=== PATIENT | female | born 1965 | race American Indian/Alaskan Native ===

== ENCOUNTER 2018-06-03 06:07 | Inpatient (IN) | payer BC ==
[2018-06-03 06:42] LABS: HEMOGLOBIN 11.9 g/dL (12.0-16.0); MEAN CELL VOLUME 90.4 fl (81.0-99.0); MEAN CORPUSCULAR HEMOGLOBIN 29.7 pg (27.0-31.0); MEAN CORPUSCULAR HGB CONC 32.8 g/dL (33.0-37.0); RBC 4.01 Mil/uL (3.80-5.20); RED CELL DISTRIBUTION WIDTH 13.9 % (11.5-14.5); WHITE BLOOD COUNT 5.2 K/uL (4.8-10.8)
[2018-06-03] MEDS ORDERED: Lactated Ringer's 1,000 ML IV ONE ×2 (07:01→08:00)
[2018-06-03] MEDS ORDERED: Bupivacaine HCl 0.5% PF (30 ml) Inj ONE (07:14)
[2018-06-03] MEDS ORDERED: Midazolam 2 MG/2 ML VIAL ONE (07:18)
[2018-06-03] MEDS ORDERED: Propofol 10 mg/ml Inj (20 ML) ONE (07:18)
[2018-06-03] MEDS ORDERED: Rocuronium 10 mg/ml (5 ml) ONE ×3 (07:18→10:19)
[2018-06-03] MEDS ORDERED: Lidocaine 1% 5ml Abboject ONE (07:19)
[2018-06-03] MEDS ORDERED: Succinylcholine 200 mg/10 ml Inj IV ONE (07:19)
[2018-06-03] MEDS ORDERED: Lidocaine 4% (Laryng-O-Jet) Kit MM ONE (07:19)
[2018-06-03] MEDS ORDERED: Dexamethasone 4 mg/1 ml ONE (07:19)
[2018-06-03] MEDS ORDERED: Neostigmine 1:1000 (1 mg/ml) Inj ONE (07:19)
[2018-06-03] MEDS ORDERED: Sevoflurane - Inhalation Anesthetic Liq (250 ml) ONE (07:29)
[2018-06-03] MEDS ORDERED: HYDROmorphone 0.5 mg/0.5 ml ISec IVP PRN (11:57)
[2018-06-03] MEDS: Lactated Ringer's 1,000 ML IV SCH ×4 (13:00→21:15)
[2018-06-03] MEDS: ceFAZolin IV 1 gm in Dextrose 1 GM/50 ML BAG IVPB SCH (16:44)
[2018-06-04] MEDS: ceFAZolin IV 1 gm in Dextrose 1 GM/50 ML BAG IVPB SCH (00:17)
[2018-06-04 08:06] LABS: HEMOGLOBIN 10.2 g/dL (12.0-16.0); MEAN CELL VOLUME 92.3 fl (81.0-99.0); MEAN CORPUSCULAR HEMOGLOBIN 29.8 pg (27.0-31.0); MEAN CORPUSCULAR HGB CONC 32.3 g/dL (33.0-37.0); RBC 3.41 Mil/uL (3.80-5.20); RED CELL DISTRIBUTION WIDTH 14.5 % (11.5-14.5); WHITE BLOOD COUNT 6.8 K/uL (4.8-10.8)
[2018-06-04] MEDS: Lactated Ringer's 1,000 ML IV SCH ×2 (08:40→16:35)
--- NOTE | 2018-06-04 08:57 | CP.SDSHP ---
Same Day Surgery H & P - Allergies Allergies: Allergies No Known Allergies Allergy (Verified 05/27/18 09:39) - Physical Exam Vital Signs: Vital Signs 06/04/18 06/04/18 05:00 08:00 Temperature 98 F 97.2 F L Pulse Rate 58 L 67 Respiratory 24 18 Rate Blood Pressure 146/61 149/66 O2 Sat by Pulse 99 95 Oximetry Short Stay Discharge - Short Stay Discharge Admitting Diagnosis/Reason for Visit: N81.10 Referrals: Hu Amador MD [Primary Care Provider] - Instructions: Robot-Assisted Surgery, How to Wash Your Hands Properly Progress Note/Discharge Note with Instructions: doing well d/c home rx provided f/u with Moses barton wek NPV no heavy lifting
[2018-06-04] MEDS: Oxycodone/Acetaminophen 5/325 mg Tab PO PRN ×3 (09:16→19:35)
[2018-06-04] MEDS: Alum-Mag Hydrox-Simethicone Susp (30 mL) PO PRN (21:06)
[2018-06-04] MEDS ORDERED: cefOXitin 2 GM in Sodium Chloride 0.9% 100 ML IVPB SCH (21:28)
[2018-06-04] MEDS: cefOXitin 2 GM in Sodium Chloride 0.9% 100 ML IVPB SCH (21:33)
[2018-06-05] MEDS: Lactated Ringer's 1,000 ML IV SCH ×2 (04:16→15:37)
[2018-06-05] MEDS: cefOXitin 2 GM in Sodium Chloride 0.9% 100 ML IVPB SCH ×3 (04:58→21:15)
[2018-06-05] MEDS: Alum-Mag Hydrox-Simethicone Susp (30 mL) PO PRN ×2 (08:13→21:28)
[2018-06-05] MEDS: Simethicone 80 mg Chewtab PO PRN ×2 (13:24→22:48)
--- NOTE | 2018-06-05 20:01 | CP.PCM.PN ---
Subjective - Date & Time of Evaluation Date of Evaluation: 06/05/18 Time of Evaluation: 14:30 - Subjective Subjective: Patient without complaints. Patient reports pain well controlled. Patient tolerating fluids and small amounts of solids. Patient denies any nausea or vomiting, chest pain or shortness of breath, fever or chills. Patient reports no flatus or bowel movement as of yet. Objective - Vital Signs/Intake and Output Vital Signs (last 24 hours): Temp Pulse Resp BP Pulse Ox 101.6 F H 103 H 22 152/65 H 96 06/05/18 16:22 06/05/18 16:22 06/05/18 16:22 06/05/18 16:22 06/05/18 16:22 Intake and Output: 06/05/18 06/06/18 18:59 06:59 Intake Total 2540 Balance 2540 - Medications Medications: Current Medications Acetaminophen (Tylenol 325mg Tab) 650 mg PO Q4 PRN PRN Reason: Temperature Last Admin: 06/05/18 08:27 Dose: 650 mg Al Hydrox/Mg Hydrox/Simethicone (Maalox Plus 30 Ml) 30 ml PO Q4 PRN PRN Reason: Indigestion / Heartburn Last Admin: 06/05/18 08:13 Dose: 30 ml Docusate Sodium (Colace) 100 mg PO BID [facility] Last Admin: 06/05/18 08:13 Dose: 100 mg Lactated Ringer's (Lactated Ringer's) 1,000 mls @ 100 mls/hr IV .Q10H [facility] Last Admin: 06/05/18 15:37 Dose: 100 mls/hr Cefoxitin Sodium 2 gm/ Sodium (Chloride) 100 mls @ 100 mls/hr IVPB Q8H [facility] PRN Reason: Protocol Last Admin: 06/05/18 13:24 Dose: 100 mls/hr Ketorolac Tromethamine (Toradol) 30 mg IVP Q6 PRN PRN Reason: Pain, moderate (4-7) Last Admin: 06/05/18 15:35 Dose: 30 mg Ondansetron HCl (Zofran Inj) 4 mg IVP Q12 PRN PRN Reason: Nausea/Vomiting Last Admin: 06/03/18 22:38 Dose: 4 mg Oxycodone/Acetaminophen (Percocet 5/325 Mg Tab) 1 tab PO Q4 PRN PRN Reason: Pain, Mild (1-3) Stop: 06/07/18 08:55 Last Admin: 06/04/18 19:35 Dose: 1 tab Simethicone (Mylicon Chew Tab) 80 mg PO TID PRN PRN Reason: Flatulence Last Admin: 06/05/18 13:24 Dose: 80 mg - Labs Labs: 06/04/18 06:29 - Constitutional Appears: Well, No Acute Distress - Eye Exam Eye Exam: Normal appearance, PERRL - ENT Exam ENT Exam: Mucous Membranes Moist - GI/Abdominal Exam GI & Abdominal Exam: Distended, Firm, Hypoactive Bowel Sounds. absent: Guarding , Tenderness, Rebound Assessment and Plan - Assessment and Plan (Free Text) Assessment: Postoperative day #2 status post robotic-assisted laparoscopy. Patient recovering well but no flatus or bowel movement with hypoactive bowel sounds and moderately distended abdomen. Plan: Discussed plan with primary physician, plan to continue observation and slowly advance diet. I discussed plan with patient and all patient questions answered.
[2018-06-05] MEDS ORDERED: cefOXitin 2 GM in Sodium Chloride 0.9% 100 ML IVPB SCH (21:00)
[2018-06-06] MEDS: Lactated Ringer's 1,000 ML IV SCH (01:47)
--- NOTE | 2018-06-06 08:22 | OP ---
PROCEDURE DATE: 06/03/18 PREOPERATIVE DIAGNOSIS: Pelvic pain, cervical prolapse. POSTOPERATIVE DIAGNOSES: Pelvic pain, cervical prolapse with anterior abdominal wall bowel adhesions, bowel adherent to the cervical stump, left ovary adherent to the pelvic side wall. SURGERY PERFORMED: Enterolysis, cystoscopy with stents, Middleton culdoplasty, ureterolysis and lysis of adhesions. SURGEON: Sergei Cain MD HIDE DROPPER: MD Dr. Deshawn Lizarraga HIDE DROPPER [employer] ANESTHESIA: General. ANESTHESIA ADMINISTERED BY: Dr. Bynum. ESTIMATED BLOOD LOSS: 50 mL. URINE OUTPUT: Knight catheter put out approximately 500 mL of clear urine. The patient received approximately 2 L of D5 LR intraoperatively. The patient had had previous supracervical hysterectomy. Dr. Hess was instrumental in the care of the patient who helped to create exposure. He was helpful in manipulating tissue and retraction. The procedure would not have been possible without his assistance. DESCRIPTION OF PROCEDURE: After informed consent was obtained, the patient was taken to the operating room where she was given general anesthesia. She was then prepped and draped in a dorsal lithotomy position. Attention was then turned to the urethra. Cystoscope was inserted. The left ureteral orifice was identified and stented. IC-Green 5 mL was injected. Similar procedure was then performed on the left. The ureters were injected so we could clearly identify the course of the ureter secondary to the patient's previous pelvic surgery with supracervical hysterectomy. The Knight catheter was then inserted into the bladder to monitor the patient's urinary output. A sponge stick was then inserted into the vagina as a means to manipulate the cervical stump. Attention was then turned to approximate 10 cm superior to the umbilicus. Marcaine was infused. An 8 mm incision was made. Veress needle was then inserted. Placement was confirmed with a fluid-filled syringe. The abdomen was then insufflated to 15 mmHg. The Veress needle was then removed, and an 8-mm robotic port was introduced to the abdominal cavity. Upon insertion, there were extensive anterior abdominal wall adhesions. Peritoneum was adherent to the anterior abdominal wall and several loops of the bowel were adherent to the anterior abdominal wall. Photographs were taken for documentation. Attention was then turned to approximately 5 cm superior to the right anterior iliac crest. Marcaine was infused, and an 8 mm incision was made and an 8 mm robotic port was introduced to the abdominal cavity under direct visualization. Similar procedure was performed on the left. The laproscopic scissors were then used to disect anterior wall omental adhesions, once the adhesions were mobilized we proceeded to insert the remaining operative ports. Approximately 10 cm right and lateral of the umbilicus, Marcaine was infused. An 8 mm incision was made and an additional robotic port was introduced under direct visualization. Attention was then turned to approximately 10 cm left of the umbilicus. An 8 mm incision was made and an 8 mm assisted port was introduced into the abdominal cavity. The patient was then placed in steep Trendelenburg. The table was lowered, and the robot was brought along the patient's side and docked without complication. The instruments used for the surgery were PK dissector, Keo Suture Cut, ProGrasp, and scissor. Attention was then turned to the anterior abdominal wall adhesions. A gentle traction was applied and with the grasper, they were gently dissected off the anterior abdominal wall using both sharp and blunt dissection. As we approached the lower aspect of the abdomen, we noted the several loops of bowel that were adherent. We gently dissected the bowel using counter traction with the bowel grasper and sharp and blunt dissection. The bowel was then mobilized laterally and dissected away from the abdomen without complication. As we approached the pelvis, we encountered more filmy adhesions. They were lysed using both sharp and blunt dissection. As we approached the cervical stump, we identified colon adherent to the anterior aspect of the cervical stump using both sharp and blunt dissection. The colon was mobilized from the cervix. Attention was then turned to the ureter. We cannot clearly identify the ureter. On the right side, we then proceeded with our Firefly technology. The bowel was adherent to the pelvic sidewall. The bowel was then mobilized. The colon was then mobilized medially using Firefly technology. We identified the ureter superiorly. We dissected it out, and we entered the retroperitoneal space, dissected the ureter out and down to the level towards the uterosacral ligament and cervical stump. A similar procedure was performed on the left. Attention was then turned to the uterosacral ligament. They were plicated using gortex suture to create the culdoplasty. The abdomen was then copiously irrigated. The irrigant was removed with the suction device. Hemostasis was noted. All instruments were then removed from the abdomen and hemostasis was noted. Cystoscopy was then performed. Integrity of the bladder was noted to be intact with bilateral clear efflux of the urine. All instruments were then removed from the vagina. The attention was then turned to the abdomen where all 8 mm incisions were closed with 3-0 Biosyn and Dermabond. All sponge, lap, needle, and instrument counts were correct x2, and the patient was awakened from general anesthesia and taken to the recovery room in awake and stable condition. Sergei Cain MD [facility]
--- NOTE | 2018-06-06 10:37 | CP.PCM.PN ---
Subjective - Date & Time of Evaluation Date of Evaluation: 06/06/18 Time of Evaluation: 10:35 - Subjective Subjective: patient doing well patient reports having small bowel movement this am patient voiding without difficulty Objective - Vital Signs/Intake and Output Vital Signs (last 24 hours): Temp Pulse Resp BP Pulse Ox 99.9 F H 113 H 20 142/74 98 06/06/18 09:28 06/06/18 08:28 06/06/18 08:28 06/06/18 08:28 06/06/18 08:28 Intake and Output: 06/06/18 06/06/18 06:59 18:59 Intake Total 1780 Balance 1780 - Medications Medications: Current Medications Acetaminophen (Tylenol 325mg Tab) 650 mg PO Q4 PRN PRN Reason: Temperature Last Admin: 06/06/18 08:28 Dose: 650 mg Al Hydrox/Mg Hydrox/Simethicone (Maalox Plus 30 Ml) 30 ml PO Q4 PRN PRN Reason: Indigestion / Heartburn Last Admin: 06/05/18 21:28 Dose: 30 ml Docusate Sodium (Colace) 100 mg PO BID [facility] Last Admin: 06/06/18 08:29 Dose: 100 mg Lactated Ringer's (Lactated Ringer's) 1,000 mls @ 100 mls/hr IV .Q10H [facility] Last Admin: 06/06/18 01:47 Dose: 100 mls/hr Ketorolac Tromethamine (Toradol) 30 mg IVP Q6 PRN PRN Reason: Pain, moderate (4-7) Last Admin: 06/06/18 08:29 Dose: 30 mg Ondansetron HCl (Zofran Inj) 4 mg IVP Q12 PRN PRN Reason: Nausea/Vomiting Last Admin: 06/03/18 22:38 Dose: 4 mg Oxycodone/Acetaminophen (Percocet 5/325 Mg Tab) 1 tab PO Q4 PRN PRN Reason: Pain, Mild (1-3) Stop: 06/07/18 08:55 Last Admin: 06/04/18 19:35 Dose: 1 tab Simethicone (Mylicon Chew Tab) 80 mg PO TID PRN PRN Reason: Flatulence Last Admin: 06/05/18 22:48 Dose: 80 mg - Labs Labs: 06/04/18 06:29 - Constitutional Appears: Well - Head Exam Head Exam: ATRAUMATIC - Respiratory Exam Respiratory Exam: Clear to Ausculation Bilateral - Cardiovascular Exam Cardiovascular Exam: REGULAR RHYTHM - GI/Abdominal Exam Additional comments: incision clean dry and inta Assessment and Plan - Assessment and Plan (Free Text) Assessment: postoperative day 3 She noted to have temp today Will obtain cbc blood cultures urine cultures ID evaluation
[2018-06-06] MEDS ORDERED: Dextrose 5%/0.45% NS 1,000 ML IV SCH (11:00)
[2018-06-06 11:36] LABS: BASO % 0.3 % (0.0-2.0); EOS # 0.1 K/uL (0.0-0.7); EOS % 0.7 % (0.0-4.0); HEMOGLOBIN 9.2 g/dL (12.0-16.0); LYMPH # 1.5 K/uL (1.0-4.3); LYMPH % 15.6 % (20.0-40.0); MEAN CELL VOLUME 90.8 fl (81.0-99.0); MEAN CORPUSCULAR HEMOGLOBIN 29.7 pg (27.0-31.0); MEAN CORPUSCULAR HGB CONC 32.7 g/dL (33.0-37.0); MEAN PLATELET VOLUME 7.1 fl (7.2-11.7); MONO # 0.7 K/uL (0.0-0.8); MONO % 6.8 % (0.0-10.0); NEUT # 7.5 K/uL (1.8-7.0); NEUT % 76.6 % (50.0-75.0); NRBC % 0.1 % (0.0-0.0); RBC 3.08 Mil/uL (3.80-5.20); RED CELL DISTRIBUTION WIDTH 13.6 % (11.5-14.5); WHITE BLOOD COUNT 9.7 K/uL (4.8-10.8)
[2018-06-06] MEDS: Simethicone 80 mg Chewtab PO PRN (16:43)
--- NOTE | 2018-06-06 18:00 | CP.PCM.PN ---
Subjective - Date & Time of Evaluation Date of Evaluation: 06/06/18 Time of Evaluation: 17:55 - Subjective Subjective: I D NOTE PATIENT EXAMINED ,CHART REVIEWED HAVE STARTED CLINDAMYCIN/ZOSYN US OF ABDOMEN/PELVIS,POSSIBL Objective - Vital Signs/Intake and Output Vital Signs (last 24 hours): Temp Pulse Resp BP Pulse Ox 102.2 F H 107 H 22 152/72 H 98 06/06/18 16:42 06/06/18 16:42 06/06/18 16:42 06/06/18 16:42 06/06/18 16:42 Intake and Output: 06/06/18 06/06/18 06:59 18:59 Intake Total 1780 Balance 1780 - Medications Medications: Current Medications Acetaminophen (Tylenol 325mg Tab) 650 mg PO Q4 PRN PRN Reason: Temperature Last Admin: 06/06/18 16:42 Dose: 650 mg Al Hydrox/Mg Hydrox/Simethicone (Maalox Plus 30 Ml) 30 ml PO Q4 PRN PRN Reason: Indigestion / Heartburn Last Admin: 06/05/18 21:28 Dose: 30 ml Docusate Sodium (Colace) 100 mg PO BID [facility] Last Admin: 06/06/18 16:43 Dose: 100 mg Dextrose/Sodium Chloride (Dextrose 5%/0.45% Ns 1000 Ml) 1,000 mls @ 125 mls/hr IV .Q8H [facility] Stop: 06/07/18 10:48 Last Admin: 06/06/18 11:33 Dose: 125 mls/hr Piperacillin Sod/Tazobactam (Sod 3.375 gm/ Sodium Chloride) 100 mls @ 100 mls/ hr IVPB Q6 [facility] PRN Reason: Protocol Clindamycin Phosphate 600 mg/ (Sodium Chloride) 54 mls @ 54 mls/hr IVPB Q8 [facility] PRN Reason: Protocol Ketorolac Tromethamine (Toradol) 30 mg IVP Q6 PRN PRN Reason: Pain, moderate (4-7) Last Admin: 06/06/18 08:29 Dose: 30 mg Ondansetron HCl (Zofran Inj) 4 mg IVP Q12 PRN PRN Reason: Nausea/Vomiting Last Admin: 06/03/18 22:38 Dose: 4 mg Oxycodone/Acetaminophen (Percocet 5/325 Mg Tab) 1 tab PO Q4 PRN PRN Reason: Pain, Mild (1-3) Stop: 06/07/18 08:55 Last Admin: 06/04/18 19:35 Dose: 1 tab Simethicone (Mylicon Chew Tab) 80 mg PO TID PRN PRN Reason: Flatulence Last Admin: 06/06/18 16:43 Dose: 80 mg - Labs Labs: 06/06/18 11:31
[2018-06-06 18:37] LABS: ALB/GLOB RATIO 0.8 (1.0-2.1); ALBUMIN 3.1 g/dL (3.5-5.0); ALT/SGPT 18 U/L (9-52); AST/SGOT 24 U/L (14-36); BLOOD UREA NITROGEN 9 mg/dl (7-17); CALCIUM 8.1 mg/dL (8.4-10.2); GFR NON-AFRICAN AMERICAN > 60
[2018-06-06] MEDS ORDERED: Sodium Chloride 0.9% 50 ML IV ONE (19:04)
[2018-06-06] MEDS ORDERED: Iohexol 300 100 ML IJ ONE (19:04)
[2018-06-06] MEDS ORDERED: Enoxaparin 40 mg Syringe SC SCH (21:00)
[2018-06-06] MEDS: Piperacillin/Tazobact 3.375 GM in Sodium Chloride 0.9% 100 ML IVPB SCH (21:47)
[2018-06-06] MEDS: Potassium Chl 40 mEq in D5-1/2 1,000 ML IV SCH (21:58)
[2018-06-07] MEDS: Piperacillin/Tazobact 3.375 GM in Sodium Chloride 0.9% 100 ML IVPB SCH ×4 (03:48→22:25)
[2018-06-07] MEDS ORDERED: Chlorhexidine Gluconate 1 APPL/PKT TP ONE ×2 (08:36→23:30)
--- NOTE | 2018-06-07 08:56 | CON ---
DATE: 06/06/2018 INFECTIOUS DISEASE CONSULTATION HISTORY OF PRESENT ILLNESS: The patient is a 53-year-old female who was admitted for pelvic pain with cervical prolapse. She underwent enterolysis, cystoscopy with stents and Middleton culdoplasty and ureterolysis and lysis of adhesions on 06/03/2018. Surgery was done by Dr. Sergei Cain. The patient was planned to be discharged on the next day, but she has been running temperature of 101 to 102 since that day. White count is up from 5.2 to 9.7, hemoglobin is 9.2, platelet count is 273. PHYSICAL EXAMINATION: GENERAL: She is alert, cooperative, and oriented to time and place. HEENT: Within normal limits. NECK: Supple. LUNGS: Clear. HEART: Regular sinus rhythm. ABDOMEN: Distended. There are decreased bowel sounds. She is tender in all quadrants, especially in the right lower quadrant. EXTREMITIES: Trace edema, both lower extremities. PLAN: Right now, I started her on clindamycin 600 mg IV piggyback every 8 hours and Zosyn 3.375 g IV piggyback every 6 hours. Awaiting stat CMP to decide on if the doses are appropriate as to renal functuion. At present time, I have ordered ct of abdomen and pelvis Sven Sparks MD MTDD
[2018-06-07] MEDS ORDERED: cefTRIAXone 2 GM in Sodium Chloride 0.9% 100 ML IVPB SCH (09:00)
[2018-06-07] MEDS: Potassium Chl 40 mEq in D5-1/2 1,000 ML IV SCH (10:24)
--- NOTE | 2018-06-07 10:30 | CP.PCM.CON ---
History of Present Illness - History of Present Illness History of Present Illness: Surgery Consult: Dr. Fowler Pt is a 44F with PMHx significant for arthritis who presented to [facility] on Sunday 06/03 for elective surgery for pelvic pain & cervical prolapse. Pt underwent a Robotic assisted enterolysis, cystoscopy, ANA & Middleton culdoplasty. Post-op pt was started on a diet which she was tolerating up until yesterday when she started feeling nauseous. Pt states she also started having abdominal pain more pronounced than the incisional pain she was having days prior. Pt reports a small mucous like bowel movement this AM but denies any flatus. She denies vomiting, chills, chest pain or SOB. Of note, pt has been spiking fevers since wednesday. Pt admits to ambulating to the bathroom. Denies other complaints at this time. PMHx: arthritis PSHx: , hysterectomy, D&C, lipoma excision from back SocialHx: denies smoking/drugs, social EtOH NKDA Review of Systems - Review of Systems All systems: reviewed and no additional remarkable complaints except (as per HPI) Past Patient History - Past Medical History & Family History Past Medical History?: Yes - CARDIAC Hx Cardiac Disorders: No - PULMONARY Hx Respiratory Disorders: No - NEUROLOGICAL Hx Neurological Disorder: No - HEENT Hx HEENT Problems: No - RENAL Hx Chronic Kidney Disease: No - ENDOCRINE/METABOLIC Hx Endocrine Disorders: No - HEMATOLOGICAL/ONCOLOGICAL Hx Blood Disorders: No - INTEGUMENTARY Hx Dermatological Problems: No - MUSCULOSKELETAL/RHEUMATOLOGICAL Hx Musculoskeletal Disorders: Yes Hx Arthritis: Yes (knees) Hx Rheumatoid Arthritis: Yes - GASTROINTESTINAL Hx Gastrointestinal Disorders: No - GENITOURINARY/GYNECOLOGICAL Hx Genitourinary Disorders: No - PSYCHIATRIC Hx Psychophysiologic Disorder: No - SURGICAL HISTORY Hx Surgeries: Yes Hx Breast Biopsy: Yes (right breast) Hx Section: Yes (x1) Hx Hysterectomy: Yes - ANESTHESIA Hx Anesthesia: Yes Hx Anesthesia Reactions: No Has any member of the family had a problem w/ anesthesia?: No Meds Allergies/Adverse Reactions: Allergies Allergy/AdvReac Type Severity Reaction Status Date / Time No Known Allergies Allergy Verified 05/27/18 09:39 - Medications Medications: Current Medications Acetaminophen (Tylenol 325mg Tab) 650 mg PO Q4 PRN PRN Reason: Temperature Last Admin: 06/06/18 16:42 Dose: 650 mg Acetaminophen (Tylenol 650 Mg Supp) 650 mg CA ONCE PRN PRN Reason: Fever >100.4 F Last Admin: 06/07/18 08:40 Dose: 650 mg Al Hydrox/Mg Hydrox/Simethicone (Maalox Plus 30 Ml) 30 ml PO Q4 PRN PRN Reason: Indigestion / Heartburn Last Admin: 06/05/18 21:28 Dose: 30 ml Docusate Sodium (Colace) 100 mg PO BID [facility] Last Admin: 06/07/18 08:56 Dose: Not Given Enoxaparin Sodium (Lovenox) 40 mg SC DAILY@2100 [facility] PRN Reason: Protocol Last Admin: 06/06/18 22:23 Dose: 40 mg Piperacillin Sod/Tazobactam (Sod 3.375 gm/ Sodium Chloride) 100 mls @ 100 mls/hr IVPB Q6 [facility] PRN Reason: Protocol Last Admin: 06/07/18 03:48 Dose: 100 mls/hr Potassium Chloride/Dextrose/Sod Cl (Potassium Chl 40 Meq In D5-1/2ns) 1,000 mls @ 125 mls/hr IV .Q8H [facility] Stop: 06/07/18 21:10 Last Admin: 06/06/18 21:58 Dose: 125 mls/hr Clindamycin Phosphate 600 mg/ (Sodium Chloride) 54 mls @ 54 mls/hr IVPB Q8H [facility] PRN Reason: Protocol Last Admin: 06/07/18 09:03 Dose: 54 mls/hr Ketorolac Tromethamine (Toradol) 30 mg IVP Q6 PRN PRN Reason: Pain, moderate (4-7) Last Admin: 06/07/18 08:57 Dose: 30 mg Ondansetron HCl (Zofran Inj) 4 mg IVP Q12 PRN PRN Reason: Nausea/Vomiting Last Admin: 06/06/18 21:44 Dose: 4 mg Simethicone (Mylicon Chew Tab) 80 mg PO TID PRN PRN Reason: Flatulence Last Admin: 06/06/18 16:43 Dose: 80 mg Physical Exam - Constitutional Appears: Well, No Acute Distress - Head Exam Head Exam: ATRAUMATIC, NORMOCEPHALIC - Eye Exam Eye Exam: Normal appearance - ENT Exam ENT Exam: Mucous Membranes Moist - Respiratory Exam Respiratory Exam: NORMAL BREATHING PATTERN - Cardiovascular Exam Cardiovascular Exam: Tachycardia - GI/Abdominal Exam GI & Abdominal Exam: Distended, Hypoactive Bowel Sounds, Soft, Tenderness (more pronounced on the R side of the abdomen ). absent: Guarding, Rebound - Extremities Exam Extremities exam: Negative for: calf tenderness - Neurological Exam Neurological exam: Alert, Oriented x3 - Skin Skin Exam: Dry, Warm Results - Vital Signs Recent Vital Signs: Last Vital Signs Temp 101.9 F H 06/07/18 08:20 Pulse 97 H 06/07/18 08:20 Resp 18 06/07/18 08:20 BP 145/78 06/07/18 08:20 Pulse Ox 99 06/07/18 08:20 - Labs Result Diagrams: 06/06/18 11:31 06/06/18 17:46 Labs: Laboratory Results - last 24 hr 06/06/18 06/06/18 11:31 17:46 WBC 9.7 RBC 3.08 L Hgb 9.2 L Hct 28.0 L MCV 90.8 MCH 29.7 MCHC 32.7 L RDW 13.6 Plt Count 273 MPV 7.1 L Neut % (Auto) 76.6 H Lymph % (Auto) 15.6 L [place] % (Auto) 6.8 Eos % (Auto) 0.7 Baso % (Auto) 0.3 Neut # (Auto) 7.5 H Lymph # (Auto) 1.5 [place] # (Auto) 0.7 Eos # (Auto) 0.1 Baso # (Auto) 0.0 Sodium 136 Potassium 3.3 L Chloride 101 Carbon Dioxide 26 Anion Gap 12 BUN 9 Creatinine 0.8 Est GFR ( Amer) > 60 Est GFR (Non-Af Amer) > 60 Random Glucose 158 H Calcium 8.1 L Total Bilirubin 0.8 AST 24 ALT 18 Alkaline Phosphatase 71 Total Protein 7.0 Albumin 3.1 L Globulin 3.9 Albumin/Globulin Ratio 0.8 L - Imaging and Cardiology CT scan - abdomen Status: Image reviewed by me, Report reviewed by me Assessment & Plan - Assessment and Plan (Free Text) Assessment: 53F s/p robotic assisted Middleton culdoplasty & extensive lysis of adhesions; POD#4. Surgery consulted for post-op ileus vs SBO Plan: - keep NPO - NGT inserted; monitor output - serial abdominal exams - monitor bowel function - encourage ambulation; NGT can be taken off suction when walking - f/u urine & blood cultures - cont ABX per ID recs - d/w Dr. Malcolm Jamison
[2018-06-07] MEDS ORDERED: Iohexol 240 (50 ml) PO ONE (10:54)
[2018-06-07 11:15] LABS: BASO % 0.5 % (0.0-2.0); EOS # 0.1 K/uL (0.0-0.7); EOS % 2.7 % (0.0-4.0); HEMOGLOBIN 8.8 g/dL (12.0-16.0); LYMPH # 0.9 K/uL (1.0-4.3); LYMPH % 21.7 % (20.0-40.0); MEAN CELL VOLUME 90.3 fl (81.0-99.0); MEAN CORPUSCULAR HEMOGLOBIN 30.1 pg (27.0-31.0); MEAN CORPUSCULAR HGB CONC 33.3 g/dL (33.0-37.0); MEAN PLATELET VOLUME 7.8 fl (7.2-11.7); MONO # 0.6 K/uL (0.0-0.8); MONO % 15.3 % (0.0-10.0); NEUT # 2.5 K/uL (1.8-7.0); NEUT % 59.8 % (50.0-75.0); NRBC % 0.3 % (0.0-0.0); RBC 2.94 Mil/uL (3.80-5.20); RED CELL DISTRIBUTION WIDTH 13.7 % (11.5-14.5); WHITE BLOOD COUNT 4.1 K/uL (4.8-10.8)
--- NOTE | 2018-06-07 11:15 | CT ---
Date of service: 06/06/2018 PROCEDURE: CT Abdomen and Pelvis with contrast HISTORY: POST OP FEVER COMPARISON: None. TECHNIQUE: Following the intravenous administration of iodinated contrast material, a CT examination of the abdomen and pelvis performed from the domes of the diaphragms to the symphysis pubis with reformatted datasets provided in axial, sagittal and coronal planes. Oral contrast was not administered as per referring physician request. Coronal and sagittal reformats were generated. contrast dose: Omnipaque 300, 100 cc Radiation dose: Total exam DLP = 996.02 mGy-cm. This CT exam was performed using one or more of the following dose reduction techniques: Automated exposure control, adjustment of the mA and/or kV according to patient size, and/or use of iterative reconstruction technique. FINDINGS: LOWER THORAX: Cardiomegaly. Linear atelectasis or fibrosis seen at the bilateral lung bases. No acute infiltrate pleural or pericardial effusion identified. LIVER: Unremarkable. No gross lesion or ductal dilatation. GALLBLADDER AND BILE DUCTS: Unremarkable. PANCREAS: Unremarkable. No gross lesion or ductal dilatation. SPLEEN: Unremarkable. ADRENALS: Unremarkable. No mass. KIDNEYS AND URETERS: Unremarkable. No hydronephrosis. No solid mass. VASCULATURE: Unremarkable. No aortic aneurysm. BOWEL: Evaluation of the gastrointestinal tract is limited due to the lack of oral contrast administration. There is free intra peritoneal gas identified on a [id number] basis scattered throughout the abdomen. Dilated proximal to mid small bowel is identified distended with fluid and a bit of air with distal small bowel collapse and mid to distal colonic collapse identified as well. While this is suspicious for a distal small bowel obstruction, patient is postoperative, which may account for free intra peritoneal gas, and while there is limited ascites identified, particularly the bilateral pericolic gutters, nonspecific irregularly-shaped fluid collections appreciated at the right lower quadrant extending into the mid pelvis with subtle peripheral enhancement and a mild amount of air. The collection is bilobed within upper mid pelvic segment measuring 8.0 x 2.8 cm and a lower segment measuring 8.3 x 2.8 cm. These are captured images 135 through 167 and series 3. There is a collection not clearly representing bowel in the lower pelvis measuring 6.8 x 4.2 cm suspicious for additional more organized abscess. Further clinical correlation is recommended. APPENDIX: Not identified. PERITONEUM: Please see bowel section above. LYMPH NODES: Unremarkable. No enlarged lymph nodes. BLADDER: Unremarkable. REPRODUCTIVE: Unremarkable. BONES: No acute fracture. OTHER FINDINGS: None. IMPRESSION: 1. Findings suspicious for distal small bowel obstruction. Postoperative ileus is differential diagnostic possibility. While free intrarenal gas is identified and could reflect postoperative change, bowel perforation is not completely excluded. Further, 2 moderate sized fluid collections in the pelvis suspicious for abscesses. 2. Cardiomegaly. Concordant preliminary report from [facility], 06/06/2018.
[2018-06-07 11:28] LABS: ALB/GLOB RATIO 0.8 (1.0-2.1); ALBUMIN 3.2 g/dL (3.5-5.0); ALT/SGPT 24 U/L (9-52); AST/SGOT 24 U/L (14-36); BLOOD UREA NITROGEN 8 mg/dl (7-17); CALCIUM 8.3 mg/dL (8.4-10.2); GFR NON-AFRICAN AMERICAN > 60
[2018-06-07] MEDS ORDERED: Sodium Chloride 0.9% 50 ML IV ONE (12:18)
[2018-06-07] MEDS ORDERED: Iohexol 300 100 ML IJ ONE (12:18)
[2018-06-07] MEDS ORDERED: Succinylcholine 200 mg/10 ml Inj IV ONE (12:43)
[2018-06-07] MEDS ORDERED: Rocuronium 10 mg/ml (5 ml) ONE (12:43)
[2018-06-07] MEDS ORDERED: Etomidate 20 mg/10ml Inj IV ONE (12:43)
[2018-06-07] MEDS ORDERED: metroNIDAZOLE 500mg/100ml NS 100 ML IVPB ONE (12:45)
[2018-06-07] MEDS ORDERED: ceFAZolin IV 1 gm in Dextrose 2 GM/100 ML BAG IVPB ONE (12:45)
[2018-06-07] MEDS ORDERED: Bupivacaine HCl 0.5% PF (30 ml) Inj ONE (12:45)
[2018-06-07] MEDS ORDERED: Neostigmine 1:1000 (1 mg/ml) Inj ONE (12:46)
[2018-06-07] MEDS ORDERED: Ketamine 50 mg/ml Inj (10 ml) ONE (12:52)
[2018-06-07] MEDS ORDERED: Midazolam 2 MG/2 ML VIAL ONE (12:53)
[2018-06-07] MEDS ORDERED: Lactated Ringer's 1,000 ML IV ONE ×2 (13:28→15:50)
[2018-06-07] MEDS ORDERED: Sodium Chloride 0.9% 1,000 ML IV ONE ×2 (13:30→15:00)
[2018-06-07 14:09] LABS: INR 1.1; PROTHROMBIN TIME 12.5 Seconds (9.8-13.1)
[2018-06-07 14:12] LABS: PARTIAL THROMBOPLASTIN TIME 31.2 Seconds (25.6-37.1)
--- NOTE | 2018-06-07 14:24 | CT ---
PROCEDURE: CT Abdomen and Pelvis with oral and IV contrast. HISTORY: SBO vs ileus; r/o perforation COMPARISON: CT abdomen and pelvis with IV contrast performed 06/06/18 TECHNIQUE: Contiguous axial images of the abdomen and pelvis. Oral and IV contrast was administered. Coronal and Sagittal reformats generated and reviewed. Contrast dose: 100 cc Omnipaque 300 IV Radiation dose: Total exam DLP = 891.15 mGy-cm. This CT exam was performed using one or more of the following dose reduction techniques: Automated exposure control, adjustment of the mA and/or kV according to patient size, and/or use of iterative reconstruction technique. FINDINGS: Nasogastric tube extends to the stomach. LOWER THORAX: Bibasilar atelectasis. No visible pleural effusion or pneumothorax. Distal esophageal wall thickening/small hiatal hernia. LIVER: Unremarkable. GALLBLADDER AND BILE DUCTS: Unremarkable. PANCREAS: Unremarkable. SPLEEN: Unremarkable. ADRENALS: Unremarkable. KIDNEYS AND URETERS: The kidneys enhance symmetrically. No hydronephrosis or obstructing renal calculus. BLADDER: The urinary bladder appears unremarkable. REPRODUCTIVE: Uterus is not identified, presumably due to hysterectomy. APPENDIX: The appendix is not identified. BOWEL: The stomach is nondistended. Dilated proximal and mid small bowel distended with fluid and air with decompressed distal small bowel loops. Again seen within the right pelvis is a fluid collection measuring approximately 9.3 x 2.6 cm, previously 8.1 x 3.7 cm when remeasured in a similar location. Inferior medially is another fluid collection measuring approximately 4.2 x 7.1 cm, previously 3.7 x 6.0 cm. PERITONEUM: Small pelvic free fluid. Pneumoperitoneum. LYMPH NODES: No bulky lymphadenopathy identified. VASCULATURE: No aortic aneurysm. BONES: Degenerative changes. OTHER FINDINGS: None. IMPRESSION: Dilated proximal mid small bowel loops distended with air and fluid. Decompressed small bowel loops are evident distally. Appearance consistent with small bowel obstruction. Small to moderate pelvic free fluid. Multiple fluid collections as above may represent abscesses. Pneumoperitoneum. Nasogastric tube.
[2018-06-07] MEDS ORDERED: Liquid Adhesive TOP ONE (15:14)
--- NOTE | 2018-06-07 15:37 | PCM.SURG1 ---
Surgeon's Initial Post Op Note - Surgeon's Notes Surgeon: Dr. Fowler Hair Mixer: Yaquelin PGY3, Ant MORSE, Zelda PGY2 Type of Anesthesia: General Endo Anesthesia Administered By: Dr. Daron Melchor Pre-Operative Diagnosis: Small bowel obstruction Operative Findings: Cecal fistula, dilated small bowel, intra-peritoneal abscess (see operative report) Post-Operative Diagnosis: cecal perforation, SBO Operation Performed: Laparoscopic converted to open laparotomy, repair of right colon/cecum fistula, diverting ileostomy, drainage of intra-peritoneal abscess Specimen/Specimens Removed: pertoneal fluid culture, subcutaneous fat Estimated Blood Loss: EBL {In ML}: 200 Blood Products Given: N/A Drains Used: Roger (x 2 (RLQ/LLQ), 19 fr) Post-Op Condition: Fair Date of Surgery/Procedure: 06/07/18 Time of Surgery/Procedure: 15:39
[2018-06-07] MEDS ORDERED: HYDROmorphone 0.5 mg/0.5 ml ISec IVP PRN (15:52)
[2018-06-07] MEDS ORDERED: Dexmedetomidine Hydrochloride 400 MCG in Sodium Chloride 0.9% 96 ML IV ONE (16:04)
[2018-06-07 18:20] LABS: ABG ALLEN TEST YES; ARTERIAL BLOOD GAS HCO3 24.4 mmol/L (21-28); ARTERIAL BLOOD GAS O2 SAT 100.6 % (95-98); ARTERIAL BLOOD GAS PCO2 54 mm/Hg (35-45); ARTERIAL BLOOD GAS PO2 184 mm/Hg (80-100); ARTERIAL BLOOD GAS TCO2 28.3 mmol/L (22-28)
--- NOTE | 2018-06-07 19:13 | CP.CCUPN ---
CCU Subjective - Physician Review Events Since Last Encounter (Free Text): 06/07/18 19:13 The patient was Seen and examined by me at the bedside, Medical records reviewed and Management issues were discussed and formulated with the house staff. Events reviewed 53 Years old Female with pelvic pain & cervical prolapse. Now Postoperative day #4 status post robotic-assisted laparoscopy, enterolysis, cystoscopy, ANA & Middleton culdoplasty. Post-op pt was started on a diet, intially was tolerating, then start complaining of abdominal pain and feeling nauseous. ABD CT scan showed dilated small boel loops with air and fluid Pt admitted to the ICU today following Laparoscopic converted to open laparotomy , repair of right colon/cecum fistula, diverting ileostomy, drainage of intra- peritoneal abscess Procedure done under General Anesthesia and was uneventful, admitted to ICU hemodynamically Stable Estimated Blood Loss: EBL {In ML}: 200 Patient is sedated and orally intubated CCU Objective - Vital Signs / Intake & Output Vital Signs (Last 4 hours): Vital Signs Temp Pulse Resp BP Pulse Ox 06/07/18 17:50 98.9 F 101 H 8 L 121/60 100 Intake and Output (Last 8hrs): Intake & Output 06/07/18 06/07/18 06/07/18 06:59 14:59 22:59 Intake Total 3700 500 Output Total 925 Balance 3700 -425 Intake: IV 3700 500 Output: Drainage 75 Urine 850 Other: # Voids Urine, Voided 6 # Bowel Movements 1 - Physical Exam Physical Exam Limitations: Positive for: Clinical Condition Head: Positive for: Atraumatic, Normocephalic Pupils: Positive for: PERRL Extroacular Muscles: Positive for: EOMI Conjunctiva: Positive for: Normal. Negative for: Injected, Icteric Mouth: Positive for: Moist Mucous Membranes Nose (Internal): Positive for: Normal Inspection Neck: Positive for: Normal Range of Motion, Trachea Midline. Negative for: Meningeal Signs, MIDLINE TENDERNESS, Paraspinal Tenderness, JVD, Lymphadenopathy , Bruit, Other Respiratory/Chest: Positive for: Decreased Breath Sounds. Negative for: Respiratory Distress, Accessory Muscle Use, Wheezes, Rales, Retracting, Rhonchi Cardiovascular: Positive for: Regular Rate and Rhythm, Normal S1, S2, Peripheal Pulses Present. Negative for: Murmurs, Tachycardic, Bradycardic Abdomen: Positive for: Tenderness, Distention, Peritoneal Signs, Other (Roger ( x 2 (RLQ/LLQ), 19 fr), midline sergical scar, dressing C/D/I, + ileostomy). Negative for: Normal Bowel Sounds - Medications Active Medications: Active Medications Generic Name Dose Route Start Last Admin Trade Name Freq PRN Reason Stop Dose Admin Acetaminophen 650 mg 06/07/18 16:50 Tylenol 325 Mg Supp [place] Q4 PRN Fever >100.4 F Al Hydrox/Mg Hydrox/Simethicone 30 ml 06/04/18 19:48 06/05/18 21:28 Maalox Plus 30 Ml PO 30 ml Q4 PRN Administration Indigestion / Heartburn Docusate Sodium 100 mg 06/03/18 17:00 06/07/18 18:10 Colace PO Not Given BID PRIYANKA Hydromorphone HCl 1 mg 06/07/18 16:38 Dilaudid IVP Q3H PRN Pain, severe (8-10) Piperacillin Sod/Tazobactam 100 mls @ 100 mls/hr 06/06/18 22:00 06/07/18 10: 24 Sod 3.375 gm/ Sodium Chloride IVPB 100 mls/hr Q6 PRIYANKA Administration Protocol Clindamycin Phosphate 600 mg/ 54 mls @ 54 mls/hr 06/07/18 10:00 06/07/18 09: 03 Sodium Chloride IVPB 54 mls/hr Q8H PRIYANKA Administration Protocol Lactated Ringer's 1,000 mls @ 150 mls/hr 06/07/18 15:45 Lactated Ringer's IV .Q6H40M PRIYANKA Ondansetron HCl 4 mg 06/07/18 16:00 Zofran Inj IVP Q6H PRN Nausea/Vomiting Simethicone 80 mg 06/04/18 19:49 06/06/18 16:43 Mylicon Chew Tab PO 80 mg TID PRN Administration Flatulence - Patient Studies Lab Studies: Microbiology Studies 06/06/18 12:00 Urine Culture - Final Urine,Clean Catch No Growth (<1,000 CFU/ML) 06/06/18 11:31 Blood Culture - Preliminary Blood NO GROWTH AFTER 24 HOURS 06/06/18 11:31 Blood Culture - Preliminary Blood NO GROWTH AFTER 24 HOURS Lab Studies 0906/07/18 06/07/18 Range/Units 18:11 11:34 11:34 WBC (4.8-10.8) K/uL RBC (3.80-5.20) Mil/uL Hgb (12.0-16.0) g/dL Hct (34.0-47.0) % MCV (81.0-99.0) fl MCH (27.0-31.0) pg MCHC (33.0-37.0) g/dL RDW (11.5-14.5) % Plt Count (130-400) K/uL MPV (7.2-11.7) fl Neut % (Auto) (50.0-75.0) % Lymph % (Auto) (20.0-40.0) % [place] % (Auto) (0.0-10.0) % Eos % (Auto) (0.0-4.0) % Baso % (Auto) (0.0-2.0) % Neut # (Auto) (1.8-7.0) K/uL Lymph # (Auto) (1.0-4.3) K/uL [place] # (Auto) (0.0-0.8) K/uL Eos # (Auto) (0.0-0.7) K/uL Baso # (Auto) (0.0-0.2) K/uL PT 12.5 (9.8-13.1) Seconds INR 1.1 APTT 31.2 (25.6-37.1) Seconds pCO2 54 H (35-45) mm/Hg pO2 184 H (80-100) mm/Hg HCO3 24.4 (21-28) mmol/L ABG pH 7.30 L (7.35-7.45) ABG Total CO2 28.3 H (22-28) mmol/L ABG O2 Saturation 100.6 H (95-98) % ABG Base Excess -0.7 (-2.0-3.0) mmol/L Al Test Yes ABG Potassium 3.4 L (3.6-5.2) mmol/L A-a O2 Difference 105.0 mm/Hg Glucose 138 H (65-105) mg/dL Lactate 0.7 (0.7-2.1) mmol/L Vent Mode Prvc/simv Mechanical Rate 12 FiO2 50.0 % Tidal Volume 500 PEEP 7 Pressure Support 15 Sodium 136.0 (132-148) mmol/l Potassium (3.6-5.0) MMOL/L Chloride 107.0 (98-107) mmol/L Carbon Dioxide (22-30) mmol/L Anion Gap (10-20) BUN (7-17) mg/dl Creatinine (0.7-1.2) mg/dl Est GFR ( Amer) Est GFR (Non-Af Amer) Random Glucose (65-105) mg/dL Calcium (8.4-10.2) mg/dL Phosphorus (2.5-4.5) mg/dl Magnesium (1.6-2.3) MG/DL Total Bilirubin (0.2-1.3) mg/dl AST (14-36) U/L ALT (9-52) U/L Alkaline Phosphatase (38-126) U/L Total Protein (6.3-8.2) G/DL Albumin (3.5-5.0) g/dL Globulin (2.2-3.9) gm/dL Albumin/Globulin Ratio (1.0-2.1) Arterial Blood Potassium 3.4 L (3.6-5.2) mmol/L Blood Type A POSITIVE Antibody Screen Negative Crossmatch See Detail BBK History Checked Patient has bt 06/07/18 06/07/18 Range/Units 11:08 11:08 WBC 4.1 L D (4.8-10.8) K/uL RBC 2.94 L (3.80-5.20) Mil/uL Hgb 8.8 L (12.0-16.0) g/dL Hct 26.5 L (34.0-47.0) % MCV 90.3 (81.0-99.0) fl MCH 30.1 (27.0-31.0) pg MCHC 33.3 (33.0-37.0) g/dL RDW 13.7 (11.5-14.5) % Plt Count 294 (130-400) K/uL MPV 7.8 (7.2-11.7) fl Neut % (Auto) 59.8 (50.0-75.0) % Lymph % (Auto) 21.7 (20.0-40.0) % [place] % (Auto) 15.3 H (0.0-10.0) % Eos % (Auto) 2.7 (0.0-4.0) % Baso % (Auto) 0.5 (0.0-2.0) % Neut # (Auto) 2.5 (1.8-7.0) K/uL Lymph # (Auto) 0.9 L (1.0-4.3) K/uL [place] # (Auto) 0.6 (0.0-0.8) K/uL Eos # (Auto) 0.1 (0.0-0.7) K/uL Baso # (Auto) 0.0 (0.0-0.2) K/uL PT (9.8-13.1) Seconds INR APTT (25.6-37.1) Seconds pCO2 (35-45) mm/Hg pO2 (80-100) mm/Hg HCO3 (21-28) mmol/L ABG pH (7.35-7.45) ABG Total CO2 (22-28) mmol/L ABG O2 Saturation (95-98) % ABG Base Excess (-2.0-3.0) mmol/L Al Test ABG Potassium (3.6-5.2) mmol/L A-a O2 Difference mm/Hg Glucose (65-105) mg/dL Lactate (0.7-2.1) mmol/L Vent Mode Mechanical Rate FiO2 % Tidal Volume PEEP Pressure Support Sodium 138 (132-148) mmol/l Potassium 3.8 (3.6-5.0) MMOL/L Chloride 104 (98-107) mmol/L Carbon Dioxide 29 (22-30) mmol/L Anion Gap 9 L (10-20) BUN 8 (7-17) mg/dl Creatinine 0.8 (0.7-1.2) mg/dl Est GFR ( Amer) > 60 Est GFR (Non-Af Amer) > 60 Random Glucose 117 H (65-105) mg/dL Calcium 8.3 L (8.4-10.2) mg/dL Phosphorus 2.5 (2.5-4.5) mg/dl Magnesium 2.6 H (1.6-2.3) MG/DL Total Bilirubin 0.9 (0.2-1.3) mg/dl AST 24 (14-36) U/L ALT 24 (9-52) U/L Alkaline Phosphatase 68 (38-126) U/L Total Protein 7.0 (6.3-8.2) G/DL Albumin 3.2 L (3.5-5.0) g/dL Globulin 3.8 (2.2-3.9) gm/dL Albumin/Globulin Ratio 0.8 L (1.0-2.1) Arterial Blood Potassium (3.6-5.2) mmol/L Blood Type Antibody Screen Crossmatch BBK History Checked Laboratory Results - last 24 hr 06/07/18 06/07/18 06/07/18 11:08 11:08 11:34 WBC 4.1 L D RBC 2.94 L Hgb 8.8 L Hct 26.5 L MCV 90.3 MCH 30.1 MCHC 33.3 RDW 13.7 Plt Count 294 MPV 7.8 Neut % (Auto) 59.8 Lymph % (Auto) 21.7 [place] % (Auto) 15.3 H Eos % (Auto) 2.7 Baso % (Auto) 0.5 Neut # (Auto) 2.5 Lymph # (Auto) 0.9 L [place] # (Auto) 0.6 Eos # (Auto) 0.1 Baso # (Auto) 0.0 PT 12.5 INR 1.1 APTT 31.2 pCO2 pO2 HCO3 ABG pH ABG Total CO2 ABG O2 Saturation ABG Base Excess Al Test ABG Potassium A-a O2 Difference Glucose Lactate Vent Mode Mechanical Rate FiO2 Tidal Volume PEEP Pressure Support Sodium 138 Potassium 3.8 Chloride 104 Carbon Dioxide 29 Anion Gap 9 L BUN 8 Creatinine 0.8 Est GFR ( Amer) > 60 Est GFR (Non-Af Amer) > 60 Random Glucose 117 H Calcium 8.3 L Phosphorus 2.5 Magnesium 2.6 H Total Bilirubin 0.9 AST 24 ALT 24 Alkaline Phosphatase 68 Total Protein 7.0 Albumin 3.2 L Globulin 3.8 Albumin/Globulin Ratio 0.8 L Arterial Blood Potassium Blood Type Antibody Screen Crossmatch BBK History Checked 06/07/18 06/07/18 11:34 18:11 WBC RBC Hgb Hct MCV MCH MCHC RDW Plt Count MPV Neut % (Auto) Lymph % (Auto) [place] % (Auto) Eos % (Auto) Baso % (Auto) Neut # (Auto) Lymph # (Auto) [place] # (Auto) Eos # (Auto) Baso # (Auto) PT INR APTT pCO2 54 H pO2 184 H HCO3 24.4 ABG pH 7.30 L ABG Total CO2 28.3 H ABG O2 Saturation 100.6 H ABG Base Excess -0.7 Al Test Yes ABG Potassium 3.4 L A-a O2 Difference 105.0 Glucose 138 H Lactate 0.7 Vent Mode Prvc/simv Mechanical Rate 12 FiO2 50.0 Tidal Volume 500 PEEP 7 Pressure Support 15 Sodium 136.0 Potassium Chloride 107.0 Carbon Dioxide Anion Gap BUN Creatinine Est GFR ( Amer) Est GFR (Non-Af Amer) Random Glucose Calcium Phosphorus Magnesium Total Bilirubin AST ALT Alkaline Phosphatase Total Protein Albumin Globulin Albumin/Globulin Ratio Arterial Blood Potassium 3.4 L Blood Type A POSITIVE Antibody Screen Negative Crossmatch See Detail BBK History Checked Patient has bt Review of Systems - Review of Systems Systems not reviewed;Unavailable: Intubated Critical Care Progress Note - Ventilator Checklist Head of Bed 30 Degrees: Yes Daily Sedation Vacation: Yes Daily Assessment of Readiness to Wean: Yes Daily Spontaneous Breathing Trial: Yes PUD Prophalyxis: Yes DVT Prophylaxis: Yes Oral Care with Chlorhexidine Gluconate {CHG}: Yes - Extremities/Vascular Does the Patient have a Central Venous Catheter?: No Does the Patient need a Central Venous Catheter?: No - Nutrition Nutrition: Nutrition Category Date Time Status NPO Diet [DIET] Diets 06/06/18 Dinner Active Assessment/Plan (1) Small bowel obstruction Current Visit: Yes Status: Acute (2) Cecum perforation Current Visit: Yes Status: Acute (3) Intraperitoneal abscess Current Visit: Yes Status: Acute - Assessment and Plan (Free Text) Assessment: Postoperative day #0 status post Laparoscopic converted to open laparotomy, repair of right colon/cecum fistula, diverting ileostomy, drainage of intra- peritoneal abscess Postoperative day #4 status post robotic-assisted laparoscopy. Admit to ICU for hemodynamic monitoring STAT LABS/LYTES/CBC, CXR Monitor Respiratory status, Keep intubated for possible sepsis, metabolic acidosis IV Hydration with LR @ 150 ml/hr She received Perioperative Antibiotics with IV Cefazolin, Also on IV Zosyn and Clindamycin Pain control with Diluded IV Q4H PRN NPO Monitor urine output PRN Ondansetron Wound care as per surgery glycemic control Aggressive pulmonary toilet, chest PT, suctioning GI/DVT PPX with SCDs, START LMWH in AM IF NO BLEED
--- NOTE | 2018-06-07 19:24 | CP.PCM.PN ---
Subjective - Date & Time of Evaluation Date of Evaluation: 06/07/18 Time of Evaluation: 19:25 - Subjective Subjective: I D NOTE PATIENT WENT TO OR TODAY CLINICALLY WORSENED OVERNIGHT CT SCAN SHOWED POSSIBLE PERFORATION OR:CECAL PERFORATION AND ABSCESS CONTINUE CLINDAMYCIN/ZOSYN WE AWAIT CULTURES Objective - Vital Signs/Intake and Output Vital Signs (last 24 hours): Temp Pulse Resp BP Pulse Ox 98.9 F 101 H 8 L 121/60 100 06/07/18 17:50 06/07/18 17:50 06/07/18 17:50 06/07/18 17:50 06/07/18 17:50 Intake and Output: 06/07/18 06/08/18 18:59 06:59 Intake Total 4610 Output Total 1025 Balance 3585 - Medications Medications: Current Medications Acetaminophen (Tylenol 325 Mg Supp) 650 mg VT Q4 PRN PRN Reason: Fever >100.4 F Al Hydrox/Mg Hydrox/Simethicone (Maalox Plus 30 Ml) 30 ml PO Q4 PRN PRN Reason: Indigestion / Heartburn Last Admin: 06/05/18 21:28 Dose: 30 ml Docusate Sodium (Colace) 100 mg PO BID PRIYANKA Last Admin: 06/07/18 18:10 Dose: Not Given Hydromorphone HCl (Dilaudid) 1 mg IVP Q3H PRN PRN Reason: Pain, severe (8-10) Piperacillin Sod/Tazobactam (Sod 3.375 gm/ Sodium Chloride) 100 mls @ 100 mls/ hr IVPB Q6 PRIYANKA PRN Reason: Protocol Last Admin: 06/07/18 10:24 Dose: 100 mls/hr Clindamycin Phosphate 600 mg/ (Sodium Chloride) 54 mls @ 54 mls/hr IVPB Q8H PRIYANKA PRN Reason: Protocol Last Admin: 06/07/18 09:03 Dose: 54 mls/hr Lactated Ringer's (Lactated Ringer's) 1,000 mls @ 150 mls/hr IV .Q6H40M PRIYANKA Ondansetron HCl (Zofran Inj) 4 mg IVP Q6H PRN PRN Reason: Nausea/Vomiting Simethicone (Mylicon Chew Tab) 80 mg PO TID PRN PRN Reason: Flatulence Last Admin: 06/06/18 16:43 Dose: 80 mg - Labs Labs: 06/07/18 11:08 06/07/18 11:08 PT 12.5 Seconds (9.8-13.1) 06/07/18 11:34 INR 1.1 06/07/18 11:34 APTT 31.2 Seconds (25.6-37.1) 06/07/18 11:34
[2018-06-07] MEDS ORDERED: Lactated Ringer's 500 ML IV SCH (23:15)
[2018-06-07] MEDS ORDERED: Lactated Ringer's 1,000 ML IV SCH (23:30)
[2018-06-08] MEDS: Lactated Ringer's 1,000 ML IV SCH ×2 (00:39→21:23)
[2018-06-08] MEDS: Piperacillin/Tazobact 3.375 GM in Sodium Chloride 0.9% 100 ML IVPB SCH ×5 (04:30→21:24)
[2018-06-08] MEDS ORDERED: Lactated Ringer's 1,000 ML IV SCH ×2 (05:00→21:45)
[2018-06-08 05:34] LABS: BASO % 0.3 % (0.0-2.0); EOS # 0.1 K/uL (0.0-0.7); EOS % 1.5 % (0.0-4.0); HEMOGLOBIN 8.9 g/dL (12.0-16.0); LYMPH # 0.9 K/uL (1.0-4.3); LYMPH % 12.8 % (20.0-40.0); MEAN CELL VOLUME 92.1 fl (81.0-99.0); MEAN CORPUSCULAR HEMOGLOBIN 30.8 pg (27.0-31.0); MEAN CORPUSCULAR HGB CONC 33.5 g/dL (33.0-37.0); MONO # 0.8 K/uL (0.0-0.8); MONO % 11.8 % (0.0-10.0); NEUT # 4.9 K/uL (1.8-7.0); NEUT % 73.6 % (50.0-75.0); NRBC % 0.2 % (0.0-0.0); RBC 2.9 Mil/uL (3.80-5.20); RED CELL DISTRIBUTION WIDTH 14.2 % (11.5-14.5); WHITE BLOOD COUNT 6.7 K/uL (4.8-10.8)
[2018-06-08 05:38] LABS: ABG ALLEN TEST YES; ARTERIAL BLOOD GAS HCO3 25.7 mmol/L (21-28); ARTERIAL BLOOD GAS O2 SAT 99.4 % (95-98); ARTERIAL BLOOD GAS PCO2 43 mm/Hg (35-45); ARTERIAL BLOOD GAS PH 7.39 (7.35-7.45); ARTERIAL BLOOD GAS PO2 204 mm/Hg (80-100); ARTERIAL BLOOD GAS TCO2 27.3 mmol/L (22-28)
[2018-06-08 06:16] LABS: ALB/GLOB RATIO 0.8 (1.0-2.1); ALBUMIN 2.7 g/dL (3.5-5.0); ALT/SGPT 23 U/L (9-52); AST/SGOT 30 U/L (14-36); BLOOD UREA NITROGEN 9 mg/dl (7-17); CALCIUM 7.6 mg/dL (8.4-10.2); GFR NON-AFRICAN AMERICAN > 60
--- NOTE | 2018-06-08 08:21 | CP.CCUPN ---
CCU Subjective - Physician Review Subjective (Free Text): Awake and alert, watching TV, communicative through ETT, no distress, has been on SIMV PS all night, denies any fatigue or distress. Tolerated SBT on low level CPAP PS. Other vitals and I/O's reviewed. 101F fever spike overnight,now 99F. ROS: No other pertinent negs or positives on 10+ system review. PMSFH: All other Nursing and physician documentation reviewed to date; no new pertinent info noted relevant to current medical problems. EXAM- HEENT: no cterus, no gaze preference, Pupils 3 mm and reactive NECK: No JVD visible, supple, carotids equal upstroke bilat/no bruits CHEST: decreased BS bases, no wheezes audible HEART: regular, distant, tachy S1S2, no rubs ABD: softly distended, obese, BS absent, bilat JPs showing serosang fluid drainage EXT: no calf tenderness or palpable cords, distal pulses intact and symmetrical. NEURO: no focal gross motor deficits. SKIN: no rashes, warm and dry. LABS: WBC= 6.7 HGB= 8.9 PLTs= 326K 7.39/43/204 Na= 138 K= 4.4 CL= 105 HCO3=30 BUN/Cr= 9./0.4 BS= 105 CXR: ETT position OK above gabby, poor inspiratory film (my interp) IMPRESSION / MAJOR PROBLEMS NOW: 1. Acute Resp Insuff Post-op, kept on MV overnight 2. Peritoneal Abscess drainage with Repair R Colonic fistula 3. Acute on Chronic Disease Anemia with recent Intraoperative blood loss 4. Obesity PLAN: 1. Extubation, NGT kept in place. 2. Empiric Abx coverage, consider Antifungal coverage, follow temps, no leukocytosis today. Blood cultures from 06/06 sterile to date. 3. Post-op mgmt, ambulation, incentive spirometry, DVT prophylaxis, nutritional support as per Surgical team. CCU Objective - Vital Signs / Intake & Output Vital Signs (Last 4 hours): Vital Signs Pulse Resp BP Pulse Ox 06/08/18 06:00 87 12 116/59 L 100 Intake and Output (Last 8hrs): Intake & Output 06/07/18 06/08/18 06/08/18 22:59 06:59 14:59 Intake Total 1410 3300 Output Total 1230 495 Balance 180 2805 Intake: IV 1360 3050 Intake, Piggyback 50 250 Output: Gastric Drainage 100 Drainage 105 140 Left Abdomen 10 20 Left Anterior Abdomen 70 Right Abdomen 20 50 Urine 1025 255 Urethral (Knight) 175 255 Emesis 100
--- NOTE | 2018-06-08 08:46 | PCM.PROC ---
Procedures Attestation:: I certify that I have explained the specified Operation(s) or Procedure(s), risks, benefits and reasonable alternatives to the Patient and/or other person responsible. The opportunity was given to ask questions and all questions answered - Extubation Clinical Parameters: Resolution/Stabilization of disease process, Hemodynamically Stable, Intact Cough/Gag Reflex, Spontaneous Respirations, Acceptable Vent Settings (FIO2<50%, PEEP<8, PaO2>75, pH>7.25) Weaning Criteria Met: Yes General Weaning Approaches: Pressure Support Ventilation (PSV) Weaning Patient Condition: Patient has been successfully extubated and assessed Oxygen Therapy: O2 via Venti Mask Patient Tolerated Procedure: Well Additional Comments: No immediate stridor noted, SPO2 100% on 40% VM, NGT kept in place, to be removed as per Surgical team discretion.
--- NOTE | 2018-06-08 10:08 | RAD ---
Date of service: 06/07/2018 PROCEDURE: CHEST RADIOGRAPH, 1 VIEW HISTORY: intubated COMPARISON: None available. FINDINGS: Endotracheal tube terminates 3.3 cm proximal to the gabby. The nasogastric tube terminates in the stomach. LUNGS: The lungs are well inflated and clear. PLEURA: No pneumothorax or pleural fluid seen. CARDIOVASCULAR: Normal. OSSEOUS STRUCTURES: No significant abnormalities. VISUALIZED UPPER ABDOMEN: Normal. OTHER FINDINGS: None. IMPRESSION: No acute findings. Endotracheal tube terminates 3.3 cm proximal to the gabby. The nasogastric tube terminates in the stomach.
--- NOTE | 2018-06-08 10:26 | RAD ---
Date of service: 06/08/2018 HISTORY: intubated COMPARISON: 06/07/2018. FINDINGS: Endotracheal tube terminates 3.5 cm proximal to the gabby. Nasogastric tube terminates in the stomach. LUNGS: The lungs are clear. PLEURA: No significant pleural effusion identified, no pneumothorax apparent. CARDIOVASCULAR: Normal. OSSEOUS STRUCTURES: No significant abnormalities. VISUALIZED UPPER ABDOMEN: Normal. OTHER FINDINGS: None. IMPRESSION: No acute findings. No significant interval change.
--- NOTE | 2018-06-08 11:42 | CP.PCM.PN ---
Subjective - Date & Time of Evaluation Date of Evaluation: 06/08/18 Time of Evaluation: 09:00 - Subjective Subjective: Surgery: Dr. Fowler Pt seen and examined. No acute overnight events. Pt is s/p Ex-lap with repair of cecal perforation & diverting loop ileostomy; POD#1. She is extubated and states she feels ok. She admits to post-op pain around her abdomen. Denies nausea/vomiting, chest pain or SOB. Objective - Vital Signs/Intake and Output Vital Signs (last 24 hours): Temp Pulse Resp BP Pulse Ox 99.3 F 97 H 16 149/79 100 06/08/18 08:00 06/08/18 10:00 06/08/18 10:00 06/08/18 10:00 06/08/18 10:00 Intake and Output: 06/08/18 06/08/18 06:59 18:59 Intake Total 3800 105 Output Total 700 125 Balance 3100 -20 - Medications Medications: Current Medications Acetaminophen (Tylenol 650 Mg Supp) 650 mg [place] Q4 PRN PRN Reason: Fever >100.4 F Last Admin: 06/07/18 23:50 Dose: 650 mg Al Hydrox/Mg Hydrox/Simethicone (Maalox Plus 30 Ml) 30 ml PO Q4 PRN PRN Reason: Indigestion / Heartburn Last Admin: 06/05/18 21:28 Dose: 30 ml Docusate Sodium (Colace) 100 mg PO BID [facility] Last Admin: 06/08/18 08:28 Dose: Not Given Enoxaparin Sodium (Lovenox) 40 mg SC DAILY PRIYANKA PRN Reason: Protocol Hydromorphone HCl (Dilaudid) 1 mg IVP Q3H PRN PRN Reason: Pain, severe (8-10) Last Admin: 06/08/18 09:13 Dose: 1 mg Piperacillin Sod/Tazobactam (Sod 3.375 gm/ Sodium Chloride) 100 mls @ 100 mls/hr IVPB Q6 PRIYANKA PRN Reason: Protocol Last Admin: 06/08/18 09:16 Dose: 100 mls/hr Lactated Ringer's (Lactated Ringer's) 1,000 mls @ 150 mls/hr IV .Q6H40M [facility] Last Admin: 06/08/18 00:39 Dose: 150 mls/hr Clindamycin Phosphate 600 mg/ (Sodium Chloride) 54 mls @ 54 mls/hr IVPB Q8@060 0,1400,2200 PRIYANKA PRN Reason: Protocol Last Admin: 06/08/18 05:26 Dose: 54 mls/hr Metronidazole (Flagyl 500mg/100ml Ns) 100 mls @ 100 mls/hr IVPB Q8 PRIYANKA PRN Reason: Protocol Ondansetron HCl (Zofran Inj) 4 mg IVP Q6H PRN PRN Reason: Nausea/Vomiting Simethicone (Mylicon Chew Tab) 80 mg PO TID PRN PRN Reason: Flatulence Last Admin: 06/06/18 16:43 Dose: 80 mg - Labs Labs: 06/08/18 04:25 06/08/18 04:25 PT 12.5 Seconds (9.8-13.1) 06/07/18 11:34 INR 1.1 06/07/18 11:34 APTT 31.2 Seconds (25.6-37.1) 06/07/18 11:34 - Constitutional Appears: Well, No Acute Distress - Head Exam Head Exam: ATRAUMATIC, NORMOCEPHALIC - Eye Exam Eye Exam: Normal appearance - ENT Exam ENT Exam: Mucous Membranes Moist Additional comments: NGT in place with bilious output; 100cc/12 hrs - Cardiovascular Exam Cardiovascular Exam: Tachycardia - GI/Abdominal Exam GI & Abdominal Exam: Distended, Soft, Tenderness (around midline incision; priyanka x [address] serosang output[address] Ileostomy in LLQ with some mucous and liquid in bag ) - Neurological Exam Neurological Exam: Alert, Awake, Oriented x3 - Skin Skin Exam: Dry, Intact, Warm Assessment and Plan - Assessment and Plan (Free Text) Assessment: 53F s/p robotic culdoplasty with cecal perforation s/p Ex-lap with repair of perforation and diverting loop ileostomy; POD#1 Plan: - cont NPO with NGT on suction - cont IVF resuscitation & strict I&O monitoring with coronado - monitor priyanka outputs - monitor bowel function via ileostomy - out of bed to chair & PT - start DVT PPX - d/w Dr. Malcolm Jamison
--- NOTE | 2018-06-08 11:45 | PQF ---
PROVIDER RESPONSE TEXT: This question of Sepsis should be directed to the physician who mentioned it in his note. REVIEWER QUERY TEXT: Conflicting Documentation Clarification 2 queries as follows: 1. A single mention of possible Sepsis appears in the record. Please clarify if the diagnosis is: -- Confirmed and current -- Confirmed, treated and resolved -- Ruled out -- Other, please specify 2. If Sepsis is ruled in: etiology if known: or etiology undetermined V/S tab: 06/04: Temperature:102->101-.101->101.5->100.8--->06/05: Temp max:101.6---->Temp max:102.2 06/04: Pulse:106->95->104---> 06/05 through 06/07 continued with elevated heart rate 06/04: Respiratory Rate:21->22->22-.>24-.22->22 WBC:5.2->6.8->9.7->4.1->6.7 06/06 Blood culture x2 preliminary: no growth after 24 hrs. 06/06 Urine culture: no growth 06/07 Wound culture pending 06/07 Critical Care progress note: to ICU for hemodynamic monitoring Keep intubated for possible seps is, metabolic acidosis; see the full note in the EMR 06/08 Critical Care note:06/08: IMPRESSION / MAJOR PROBLEMS NOW: 1. Acute Resp Insuff Post-op, kept on MV overnight 2. Peritoneal Abscess drainage with Repair R Colonic fistula 3. Acute on Chronic Disease Anemia with recent Intraoperative blood loss 4. Obesity The patient's Clinical Indicators include: xx Query created by: Silvia Horton on 06/08/2018 11:34 AM Electronically signed by: Tyler Foster DO 06/08/2018 11:42 AM
[2018-06-08] MEDS: metroNIDAZOLE 500mg/100ml NS 100 ML IVPB SCH ×2 (15:08→17:10)
[2018-06-08] MEDS: Enoxaparin 40 mg Syringe SC SCH (16:06)
--- NOTE | 2018-06-08 18:51 | CP.PCM.HP ---
History of Present Illness - History of Present Illness History of Present Illness: The patient is a 53-year-old female who presented to [facility] for cervical prolapse. Patient's initial complaints of pelvic pressure discomfort patient reported a bulge in the vagina was getting progressively worse, patient's surgical history was significant for previous supracervical hysterectomy and 2 previous deliveries. The patient was taken to the operating room on June 03 for sacral colpopexy. intraoperatively significant bowel adhesions were noted to the anterior abdominal wall and the bowel was adherent to the cervical stump and there is significant adhesions in the cul-de-sac. See operative report for details the patient was taken from the operating room and admitted to [facility]. Patient was evaluated postoperative day 1 patient was feeling some postoperative discomfort was ambulating tolerating clear liquids. Plan was to discharge patient home prior to discharge patient was noted to have a temperature, discharge plans were discontinued, plan was for observation. Postoperative day #2 the patient was evaluated patient's abdominal was noted to be slightly distended and tender. Patient was also noted to have temperature patient was maintained under observation. Patient had been ambulating and voiding patient reported difficulty passing flatus. Postoperative day #3 patient continued to be febrile CT scan was ordered infectious disease consult was obtained blood cultures urine cultures were obtained, patient was placed on antibiotics Postoperative day #4 patients abdominal distention continued surgical consult was obtained nasogastric tube was placed CT findings noted findings were suggestive of ileus vs obstruction. After Consultation with general surgery the decision was made to proceed with exploratory laparotomy Present on Admission - Present on Admission Any Indicators Present on Admission: No History of DVT/PE: No Urinary Catheter: Yes Review of Systems - Constitutional Constitutional: Fever - EENT Nose/Mouth/Throat: As Per HPI - Cardiovascular Cardiovascular: As Per HPI Additional comments: Sinus tachycardia - Respiratory Respiratory: As Per HPI - Gastrointestinal Additional comments: N G-tube present abdominal drains present - Menstruation Menstruation: As Per HPI - Integumentary Integumentary: As Per HPI Past Patient History - Past Medical History & Family History Past Medical History?: Yes - Past Social History Smoking Status: Former Smoker - CARDIAC Hx Cardiac Disorders: No - PULMONARY Hx Respiratory Disorders: No - NEUROLOGICAL Hx Neurological Disorder: No - HEENT Hx HEENT Problems: No - RENAL Hx Chronic Kidney Disease: No - ENDOCRINE/METABOLIC Hx Endocrine Disorders: No - HEMATOLOGICAL/ONCOLOGICAL Hx Blood Disorders: No - INTEGUMENTARY Hx Dermatological Problems: No - MUSCULOSKELETAL/RHEUMATOLOGICAL Hx Musculoskeletal Disorders: Yes Hx Arthritis: Yes (knees) Hx Rheumatoid Arthritis: Yes - GASTROINTESTINAL Hx Gastrointestinal Disorders: No - GENITOURINARY/GYNECOLOGICAL Hx Genitourinary Disorders: No - PSYCHIATRIC Hx Psychophysiologic Disorder: No - SURGICAL HISTORY Hx Surgeries: Yes Hx Breast Biopsy: Yes (right breast) Hx Section: Yes (x1) Hx Hysterectomy: Yes - ANESTHESIA Hx Anesthesia: Yes Hx Anesthesia Reactions: No Has any member of the family had a problem w/ anesthesia?: No Meds Allergies/Adverse Reactions: Allergies Allergy/AdvReac Type Severity Reaction Status Date / Time No Known Allergies Allergy Verified 05/27/18 09:39 Physical Exam - Constitutional Appears: Non-toxic - Head Exam Head Exam: ATRAUMATIC - Eye Exam Eye Exam: Normal appearance - ENT Exam ENT Exam: Mucous Membranes Moist Additional comments: nasogastric tube tube - Respiratory Exam Respiratory Exam: NORMAL BREATHING PATTERN - Cardiovascular Exam Cardiovascular Exam: Tachycardia - GI/Abdominal Exam Additional comments: Incision intact bilateral drains noted - Neurological Exam Neurological exam: Alert - Skin Skin Exam: Normal Color Results - Vital Signs Recent Vital Signs: Last Vital Signs Temp 99 F 06/08/18 17:00 Pulse 94 H 06/08/18 18:00 Resp 20 06/08/18 18:00 BP 164/75 H 06/08/18 18:00 Pulse Ox 100 06/08/18 18:00 - Labs Result Diagrams: 06/08/18 04:25 06/08/18 04:25 Labs: Laboratory Results - last 24 hr 06/07/18 06/08/18 06/08/18 15:59 04:25 04:25 WBC 6.7 D RBC 2.90 L Hgb 8.9 L Hct 26.7 L MCV 92.1 MCH 30.8 MCHC 33.5 RDW 14.2 Plt Count 326 MPV 8.0 Neut % (Auto) 73.6 Lymph % (Auto) 12.8 L [place] % (Auto) 11.8 H Eos % (Auto) 1.5 Baso % (Auto) 0.3 Neut # (Auto) 4.9 Lymph # (Auto) 0.9 L [place] # (Auto) 0.8 Eos # (Auto) 0.1 Baso # (Auto) 0.0 pCO2 pO2 HCO3 ABG pH ABG Total CO2 ABG O2 Saturation ABG Base Excess Al Test ABG Potassium A-a O2 Difference Glucose Lactate Vent Mode Mechanical Rate FiO2 Tidal Volume PEEP Pressure Support Sodium 138 Potassium 4.4 Chloride 105 Carbon Dioxide 30 Anion Gap 7 L BUN 9 Creatinine 0.9 Est GFR ( Amer) > 60 Est GFR (Non-Af Amer) > 60 Random Glucose 105 Calcium 7.6 L Phosphorus 4.5 Magnesium 2.4 H Total Bilirubin 1.0 AST 30 ALT 23 Alkaline Phosphatase 51 Total Protein 6.2 L Albumin 2.7 L Globulin 3.5 Albumin/Globulin Ratio 0.8 L Prealbumin 6.0 L Arterial Blood Potassium 06/08/18 05:23 WBC RBC Hgb Hct MCV MCH MCHC RDW Plt Count MPV Neut % (Auto) Lymph % (Auto) [place] % (Auto) Eos % (Auto) Baso % (Auto) Neut # (Auto) Lymph # (Auto) [place] # (Auto) Eos # (Auto) Baso # (Auto) pCO2 43 pO2 204 H HCO3 25.7 ABG pH 7.39 ABG Total CO2 27.3 ABG O2 Saturation 99.4 H ABG Base Excess 0.9 Al Test Yes ABG Potassium 3.9 A-a O2 Difference 99.0 Glucose 111 H Lactate 0.9 Vent Mode Simv Mechanical Rate 12 FiO2 50.0 Tidal Volume 500 PEEP 7 Pressure Support 15 Sodium 137.0 Potassium Chloride 108.0 H Carbon Dioxide Anion Gap BUN Creatinine Est GFR ( Amer) Est GFR (Non-Af Amer) Random Glucose Calcium Phosphorus Magnesium Total Bilirubin AST ALT Alkaline Phosphatase Total Protein Albumin Globulin Albumin/Globulin Ratio Prealbumin Arterial Blood Potassium 3.9 Assessment & Plan - Assessment and Plan (Free Text) Assessment: Patient status post robotic-assisted lysis of adhesions Middleton's culdoplasty postoperative day 5 Patient status post exploratory laparotomy repair of bowel injury and ileostomy postoperative day #1 Patient currently in the ICU and being managed by group account director. The surgery was discussed with the patient patient was informed of bowel perforation, patient was informed of the need and reason for ileostomy. The plan of care was discussed with the patient is given the opportunity to ask questions and all her questions were answered patient's family was notified son Josh and Sister Cesilia.I will continue to follow patient's course throughout the ICU and discharge - Date & Time Date: 06/08/18 Time: 09:10
--- NOTE | 2018-06-08 18:54 | CP.PCM.PN ---
Subjective - Date & Time of Evaluation Date of Evaluation: 06/08/18 Time of Evaluation: 18:52 - Subjective Subjective: I D NOTE HAVE ADDED FLAGYL TO RX AWAIT INTRAOPERATIVE CULTURE RESULTS Objective - Vital Signs/Intake and Output Vital Signs (last 24 hours): Temp Pulse Resp BP Pulse Ox 99 F 94 H 20 164/75 H 100 06/08/18 17:00 06/08/18 18:00 06/08/18 18:00 06/08/18 18:00 06/08/18 18:00 Intake and Output: 06/08/18 06/08/18 06:59 18:59 Intake Total 3800 1505 Output Total 700 1035 Balance 3100 470 - Medications Medications: Current Medications Acetaminophen (Tylenol 650 Mg Supp) 650 mg NC Q4 PRN PRN Reason: Fever >100.4 F Last Admin: 06/07/18 23:50 Dose: 650 mg Al Hydrox/Mg Hydrox/Simethicone (Maalox Plus 30 Ml) 30 ml PO Q4 PRN PRN Reason: Indigestion / Heartburn Last Admin: 06/05/18 21:28 Dose: 30 ml Docusate Sodium (Colace) 100 mg PO BID [facility] Last Admin: 06/08/18 16:10 Dose: Not Given Enoxaparin Sodium (Lovenox) 40 mg SC DAILY [facility] PRN Reason: Protocol Last Admin: 06/08/18 16:06 Dose: 40 mg Hydromorphone HCl (Dilaudid) 1 mg IVP Q3H PRN PRN Reason: Pain, severe (8-10) Last Admin: 06/08/18 18:47 Dose: 1 mg Piperacillin Sod/Tazobactam (Sod 3.375 gm/ Sodium Chloride) 100 mls @ 100 mls/ hr IVPB Q6 [facility] PRN Reason: Protocol Last Admin: 06/08/18 17:09 Dose: 100 mls/hr Lactated Ringer's (Lactated Ringer's) 1,000 mls @ 150 mls/hr IV .Q6H40M [facility] Last Admin: 06/08/18 00:39 Dose: 150 mls/hr Clindamycin Phosphate 600 mg/ (Sodium Chloride) 54 mls @ 54 mls/hr IVPB Q8@0600 ,1400,2200 [facility] PRN Reason: Protocol Last Admin: 06/08/18 16:05 Dose: 54 mls/hr Metronidazole (Flagyl 500mg/100ml Ns) 100 mls @ 100 mls/hr IVPB Q8 [facility] PRN Reason: Protocol Last Admin: 06/08/18 17:10 Dose: Not Given Ketorolac Tromethamine (Toradol) 15 mg IVP Q6 [facility] Stop: 06/11/18 16:01 Last Admin: 06/08/18 15:39 Dose: 15 mg Ondansetron HCl (Zofran Inj) 4 mg IVP Q6H PRN PRN Reason: Nausea/Vomiting Simethicone (Mylicon Chew Tab) 80 mg PO TID PRN PRN Reason: Flatulence Last Admin: 06/06/18 16:43 Dose: 80 mg - Labs Labs: 06/08/18 04:25 06/08/18 04:25 PT 12.5 Seconds (9.8-13.1) 06/07/18 11:34 INR 1.1 06/07/18 11:34 APTT 31.2 Seconds (25.6-37.1) 06/07/18 11:34
--- NOTE | 2018-06-08 19:18 | CP.SDSHP ---
Same Day Surgery H & P - History Proposed Procedure: Sacral colpopexy Pre-Op Diagnosis: Cervical prolapse patient status post supracervical hysterectomy patient complains of pelvic pressure discomfort which is getting progressively worse - Allergies Allergies: Allergies No Known Allergies Allergy (Verified 05/27/18 09:39) - Physical Exam Vital Signs: Vital Signs 06/08/18 06/08/18 06/08/18 12:00 13:55 14:00 Temperature 99.1 F Pulse Rate 103 H 117 H 120 H Respiratory 21 24 Rate Blood Pressure 164/70 H 146/69 O2 Sat by Pulse 82 L 95 95 Oximetry 06/08/18 06/08/18 06/08/18 16:00 17:00 18:00 Temperature 102.0 F H 99 F Pulse Rate 114 H 94 H Respiratory 25 H 20 Rate Blood Pressure 133/63 164/75 H O2 Sat by Pulse 100 100 Oximetry - Impression Impression: She is scheduled for sacral colpopexy we discussed the risks benefits and alternatives to surgery patient agrees to plan of care informed consent was obtained - Date & Time Date: 06/03/18 Time: 07:50 Short Stay Discharge - Short Stay Discharge Admitting Diagnosis/Reason for Visit: N81.10 Disposition: HOME/ ROUTINE Referrals: Hu Amador MD [Primary Care Provider] - Instructions: Robot-Assisted Surgery, How to Prevent Surgical Site Infections, Surgical Wound (DC), Docusate, Ibuprofen, Oxycodone and Acetaminophen, Cystoscopy (DC) Additional Instructions (Diet, Activity): ANY PROBLEMS-FEVER/SEVERE PAIN/BLEEDING/DRAINAGE/PUS OR ANY QUESTIONS CALL DOCTOR OR GO TO EMERGENCY ROOM 911 FOR EMERGENCY [place] DRESSINGS DRY AND INTACT FOLLOW UP WITH DR. ESQUIVEL IN 1 WEEK-CALL TO MAKE APPOINTMENT NO TUB BATHS NO DOUCHING NO TAMPONS NO SEX TILL CLEARED BY DOCTOR NO HEAVY LIFTING OR STRENUOUS EXERCISES MAY SHOWER CHECK FOR FOUL ODOR AND OR EXCESSIVE BLEEDING MEDICATIONS FOR HOME: MOTRIN 800 MG BY MOUTH EVERY 8 HOURS-TAKE WITH FOOD COLACE 100 MG BY MOUTH TWICE A DAY PERCOCET- 1 TABLET BY MOUTH EVERY 4 HOURS NEEDED FOR PAIN
[2018-06-08] MEDS ORDERED: Acetaminophen IV IVPB PRN (19:33)
[2018-06-09] MEDS: metroNIDAZOLE 500mg/100ml NS 100 ML IVPB SCH ×3 (00:25→16:41)
[2018-06-09] MEDS: Lactated Ringer's 1,000 ML IV SCH ×2 (01:30→19:47)
[2018-06-09] MEDS: Piperacillin/Tazobact 3.375 GM in Sodium Chloride 0.9% 100 ML IVPB SCH ×3 (03:37→15:52)
[2018-06-09 05:34] LABS: BASO % 0.4 % (0.0-2.0); EOS # 0.2 K/uL (0.0-0.7); EOS % 2.3 % (0.0-4.0); HEMOGLOBIN 8.3 g/dL (12.0-16.0); LYMPH # 1.6 K/uL (1.0-4.3); LYMPH % 18.5 % (20.0-40.0); MEAN CELL VOLUME 91.5 fl (81.0-99.0); MEAN CORPUSCULAR HEMOGLOBIN 30.4 pg (27.0-31.0); MEAN CORPUSCULAR HGB CONC 33.3 g/dL (33.0-37.0); MEAN PLATELET VOLUME 7.2 fl (7.2-11.7); MONO # 1.6 K/uL (0.0-0.8); MONO % 18.6 % (0.0-10.0); NEUT # 5.1 K/uL (1.8-7.0); NEUT % 60.2 % (50.0-75.0); NRBC % 0.1 % (0.0-0.0); RBC 2.74 Mil/uL (3.80-5.20); RED CELL DISTRIBUTION WIDTH 14.1 % (11.5-14.5); WHITE BLOOD COUNT 8.4 K/uL (4.8-10.8)
[2018-06-09 05:50] LABS: BLOOD UREA NITROGEN 12 mg/dl (7-17); GFR NON-AFRICAN AMERICAN > 60
--- NOTE | 2018-06-09 07:39 | CP.PCM.PN ---
Subjective - Date & Time of Evaluation Date of Evaluation: 06/09/18 Time of Evaluation: 07:00 - Subjective Subjective: General Surgery Note for Dr. Fowler Patient seen and examined at bedside. No acute event overnights. Patient still experiencing abdominal pain but states has improved since addition of Toradol. She denies fever/chills or nausea/vomiting. She is NPO with NGT in place. NGT with 750cc of bilious output for last 12hrs. Urine output was 430 cc overnight, which is slightly low for her weight so additional bolus was given. Roger drains continue to have serosanguinous output (R: 25cc, L: 10cc). Her ileostomy has had 50 cc of mucus and liquid. Denies SOB, Chest pain, palpitations, urinary symptoms. Objective - Vital Signs/Intake and Output Vital Signs (last 24 hours): Temp Pulse Resp BP Pulse Ox 98.6 F 90 25 H 143/78 98 06/09/18 04:00 06/09/18 06:00 06/09/18 06:00 06/09/18 06:00 06/09/18 06:00 Intake and Output: 06/09/18 06/09/18 06:59 18:59 Intake Total 3000 Output Total 1150 Balance 1850 - Medications Medications: Current Medications Al Hydrox/Mg Hydrox/Simethicone (Maalox Plus 30 Ml) 30 ml PO Q4 PRN PRN Reason: Indigestion / Heartburn Last Admin: 06/05/18 21:28 Dose: 30 ml Docusate Sodium (Colace) 100 mg PO BID [facility] Last Admin: 06/08/18 16:10 Dose: Not Given Enoxaparin Sodium (Lovenox) 40 mg SC DAILY [facility] PRN Reason: Protocol Last Admin: 06/08/18 16:06 Dose: 40 mg Hydromorphone HCl (Dilaudid) 1 mg IVP Q3H PRN PRN Reason: Pain, severe (8-10) Last Admin: 06/09/18 06:23 Dose: 1 mg Piperacillin Sod/Tazobactam (Sod 3.375 gm/ Sodium Chloride) 100 mls @ 100 mls/hr IVPB Q6 [facility] PRN Reason: Protocol Last Admin: 06/09/18 03:37 Dose: 100 mls/hr Lactated Ringer's (Lactated Ringer's) 1,000 mls @ 150 mls/hr IV .Q6H40M [facility] Last Admin: 06/09/18 01:30 Dose: 150 mls/hr Clindamycin Phosphate 600 mg/ (Sodium Chloride) 54 mls @ 54 mls/hr IVPB Q8@0600,1400,2200 [facility] PRN Reason: Protocol Last Admin: 06/09/18 05:13 Dose: 54 mls/hr Metronidazole (Flagyl 500mg/100ml Ns) 100 mls @ 100 mls/hr IVPB Q8 [facility] PRN Reason: Protocol Last Admin: 06/09/18 00:25 Dose: 100 mls/hr Acetaminophen (Ofirmev) 100 mls @ 400 mls/hr IVPB Q6 PRN PRN Reason: Fever and Moderate pain (4-7) Stop: 06/09/18 22:01 Last Admin: 06/09/18 05:10 Dose: 400 mls/hr Ondansetron HCl (Zofran Inj) 4 mg IVP Q6H PRN PRN Reason: Nausea/Vomiting Simethicone (Mylicon Chew Tab) 80 mg PO TID PRN PRN Reason: Flatulence Last Admin: 06/06/18 16:43 Dose: 80 mg - Labs Labs: 06/09/18 04:30 06/09/18 04:30 PT 12.5 Seconds (9.8-13.1) 06/07/18 11:34 INR 1.1 06/07/18 11:34 APTT 31.2 Seconds (25.6-37.1) 06/07/18 11:34 - Constitutional Appears: No Acute Distress - Head Exam Head Exam: ATRAUMATIC, NORMOCEPHALIC - Eye Exam Eye Exam: Normal appearance - ENT Exam ENT Exam: Mucous Membranes Dry Additional comments: NGT in place - Respiratory Exam Respiratory Exam: NORMAL BREATHING PATTERN - Cardiovascular Exam Cardiovascular Exam: REGULAR RHYTHM - GI/Abdominal Exam GI & Abdominal Exam: Distended (mildly), Soft, Tenderness. absent: Guarding, Rigid, Rebound Additional comments: Roger drains in RLQ/LLQ Ileostomy in LLQ Midline incision with hossein and sutures - dressing changed - Exam Additional comments: coronado catheter in place - Extremities Exam Extremities Exam: Normal Capillary Refill - Neurological Exam Neurological Exam: Alert, Awake, Oriented x3 - Psychiatric Exam Psychiatric exam: Normal Affect, Normal Mood - Skin Skin Exam: Dry, Warm Assessment and Plan - Assessment and Plan (Free Text) Assessment: 53F s/p robotic culdoplasty with cecal perforation, s/p Ex-lap with repair of perforation and diverting loop ileostomy POD#2 Plan: -NPO -NGT on low continuous suction -IV fluids -IV abx as per ID -Strict I's & O's -Analgesics/Anti-emetics PRN -f/u ABXR (flat and upright) -Physical Therapy -Encourage ambulation/OOB to chair/IS -Monitor for bowel function -GI/DVT ppx -Further recommendations as per Dr. Malcolm Ndiaye PGY2
[2018-06-09] MEDS ORDERED: Lactated Ringer's 1,000 ML IV SCH ×2 (09:30→18:30)
[2018-06-09] MEDS: Enoxaparin 40 mg Syringe SC SCH (09:34)
--- NOTE | 2018-06-09 13:03 | RAD ---
Date of service: 06/09/2018 HISTORY: ngt, s/p ex-lap COMPARISON: No prior. FINDINGS: BOWEL: Dilated loops of colon and small bowel identified. The stomach is decompressed by an indwelling nasogastric tube. BONES: Normal. OTHER FINDINGS: Expected postoperative changes in the pelvis including 2 surgical drains. IMPRESSION: Distended small bowel and colon likely postoperative ileus. No visible free air.
--- NOTE | 2018-06-09 17:58 | CP.CCUPN ---
CCU Subjective - Physician Review Subjective (Free Text): Awake, alert, no distress, has tolerated getting OOB from yesterday. Stable resp status post-extubation. Nurses report Oliguria this AM, fluid challenges ordered. Other vitals and I/O's reviewed. Temps mostly 99F, apart from T spike yesterday afternoon of 102F. No hypotensive episodes, Hr 90s in sinus. Overall positive 8.9L fluid balance last 36H. ROS: No other pertinent negs or positives on 10+ system review. PMSFH: All other Nursing and physician documentation reviewed to date; no new pertinent info noted relevant to current medical problems. EXAM- HEENT: no cterus, no gaze preference, Pupils 3 mm and reactive NECK: No JVD visible, supple, carotids equal upstroke bilat/no bruits CHEST: decreased BS bases, no wheezes audible HEART: regular, distant, tachy S1S2, no rubs ABD: softly distended, obese, BS absent, bilat JPs showing serosang fluid drainage EXT: no calf tenderness or palpable cords, distal pulses intact and symmetrical. NEURO: no focal gross motor deficits. SKIN: no rashes, warm and dry. LABS: WBC= 8.4 HGB= 8.3 PLTs= 357K Na= 141 K= 3.6 CL= 109 HCO3=29 BUN/Cr= 12/0.8 BS= 96 Blood Cx x1 for Micrococcus Wound Cx shows E. cloacae IMPRESSION / MAJOR PROBLEMS NOW: 1. s/p Extubation (in ICU after Post-op overnight yesterday) for Acute Resp [id number]. 2. s/p Peritoneal Abscess drainage / Repair Right Colonic fistula with Enterobacter sepsis. 3. Acute on Chronic Disease Anemia with recent Intraoperative blood loss 4. Obesity PLAN: 1. Empiric Abx ( Zosyn / Clinda) coverage now shows resistance to Zosyn, consider switch to Maxipime, or Merrem; consider Antifungal coverage, follow temps, no leukocytosis today. 2. Additional fluid challenges for oliguria, expect much transabdominal fluid shifts due to intra-abdominal infection. 3. Post-op mgmt, ambulation, incentive spirometry, DVT prophylaxis, nutritional support as per Surgical team.
[2018-06-09] MEDS: Meropenem 1 GM in Sodium Chloride 0.9% 100 ML IVPB SCH (19:42)
[2018-06-10] MEDS: Meropenem 1 GM in Sodium Chloride 0.9% 100 ML IVPB SCH ×3 (00:13→18:05)
[2018-06-10] MEDS: metroNIDAZOLE 500mg/100ml NS 100 ML IVPB SCH ×3 (00:14→16:08)
[2018-06-10 05:42] LABS: HEMOGLOBIN 8.3 g/dL (12.0-16.0); MEAN CELL VOLUME 91.2 fl (81.0-99.0); MEAN CORPUSCULAR HEMOGLOBIN 29.7 pg (27.0-31.0); MEAN CORPUSCULAR HGB CONC 32.6 g/dL (33.0-37.0); RBC 2.79 Mil/uL (3.80-5.20); RED CELL DISTRIBUTION WIDTH 14.4 % (11.5-14.5); WHITE BLOOD COUNT 11.6 K/uL (4.8-10.8)
[2018-06-10 06:18] LABS: BLOOD UREA NITROGEN 9 mg/dl (7-17); GFR NON-AFRICAN AMERICAN > 60
--- NOTE | 2018-06-10 07:52 | CP.PCM.PN ---
Subjective - Date & Time of Evaluation Date of Evaluation: 06/10/18 Time of Evaluation: 07:49 - Subjective Subjective: Surgery: Dr. Fowler Pt seen and examined. No acute overnight events. States she feels ok this morning and pain is well controlled. She admits to the NGT bothering the back of her throat. Pt states she has been out of bed to chair. She denies any nausea/vomiting, fevers/chills. Objective - Vital Signs/Intake and Output Vital Signs (last 24 hours): Temp Pulse Resp BP Pulse Ox 99.9 F H 92 H 22 120/59 L 97 06/10/18 04:40 06/10/18 05:17 06/10/18 05:17 06/10/18 05:17 06/10/18 05:17 Intake and Output: 06/10/18 06/10/18 06:59 18:59 Intake Total 3199 Output Total 1210 Balance 1988 - Medications Medications: Current Medications Al Hydrox/Mg Hydrox/Simethicone (Maalox Plus 30 Ml) 30 ml PO Q4 PRN PRN Reason: Indigestion / Heartburn Last Admin: 06/05/18 21:28 Dose: 30 ml Docusate Sodium (Colace) 100 mg PO BID [facility] Last Admin: 06/09/18 17:03 Dose: Not Given Enoxaparin Sodium (Lovenox) 40 mg SC DAILY [facility] PRN Reason: Protocol Last Admin: 06/09/18 09:34 Dose: 40 mg Hydromorphone HCl (Dilaudid) 1 mg IVP Q3H PRN PRN Reason: Pain, severe (8-10) Last Admin: 06/10/18 07:37 Dose: 1 mg Lactated Ringer's (Lactated Ringer's) 1,000 mls @ 150 mls/hr IV .Q6H40M [facility] Last Admin: 06/09/18 19:47 Dose: 150 mls/hr Clindamycin Phosphate 600 mg/ (Sodium Chloride) 54 mls @ 54 mls/hr IVPB Q8@0600,1400,2200 [facility] PRN Reason: Protocol Last Admin: 06/10/18 05:08 Dose: 54 mls/hr Metronidazole (Flagyl 500mg/100ml Ns) 100 mls @ 100 mls/hr IVPB Q8 [facility] PRN Reason: Protocol Last Admin: 06/10/18 00:14 Dose: 100 mls/hr Meropenem 1 gm/ Sodium (Chloride) 100 mls @ 100 mls/hr IVPB Q8 [facility] PRN Reason: Protocol Last Admin: 06/10/18 00:13 Dose: 100 mls/hr Potassium Chloride (Potassium Chloride 10 Meq/100 Ml) 100 mls @ 100 mls/hr IVPB Q1 [facility] Stop: 06/10/18 11:59 Ondansetron HCl (Zofran Inj) 4 mg IVP Q6H PRN PRN Reason: Nausea/Vomiting Pantoprazole Sodium (Protonix Inj) 40 mg IVP DAILY [facility] Last Admin: 06/09/18 09:32 Dose: 40 mg Simethicone (Mylicon Chew Tab) 80 mg PO TID PRN PRN Reason: Flatulence Last Admin: 06/06/18 16:43 Dose: 80 mg - Labs Labs: 06/10/18 04:30 06/10/18 04:30 PT 12.5 Seconds (9.8-13.1) 06/07/18 11:34 INR 1.1 06/07/18 11:34 APTT 31.2 Seconds (25.6-37.1) 06/07/18 11:34 - Constitutional Appears: Well, No Acute Distress - Head Exam Head Exam: ATRAUMATIC, NORMOCEPHALIC - Eye Exam Eye Exam: Normal appearance - ENT Exam ENT Exam: Mucous Membranes Moist - Respiratory Exam Respiratory Exam: NORMAL BREATHING PATTERN - Cardiovascular Exam Cardiovascular Exam: Tachycardia - GI/Abdominal Exam GI & Abdominal Exam: Soft, Tenderness (around midline incision, C/D/I with hossein in place. b/l priyanka drains with serosang output. Ileostomy pink/patent with mucous/liquid output). absent: Guarding - Neurological Exam Neurological Exam: Alert, Awake, Oriented x3 - Skin Skin Exam: Dry, Warm Assessment and Plan - Assessment and Plan (Free Text) Assessment: 53F s/p robotic culdoplasty with cecal perforation s/p ex-lap with repair of perf & diverting loop ileostomy; POD#3 Plan: - cont NGT on suction with IVF hydration - ok to DC coronado - cont to monitor strict Is & Os - encourage ambulation with PT and Incentive Spirometer use - cont IV ABX; ID on board - d/w Dr. Malcolm Jamison
[2018-06-10] MEDS: Potassium CL 10mEq/100ml 100 ML IVPB SCH ×4 (08:19→14:12)
[2018-06-10] MEDS: Potassium Ch 20mEq in D5-1/2NS 1,000 ML IV SCH ×2 (09:15→21:42)
[2018-06-10] MEDS: Enoxaparin 40 mg Syringe SC SCH (09:58)
--- NOTE | 2018-06-10 12:20 | CP.PCM.PN ---
Subjective - Date & Time of Evaluation Date of Evaluation: 06/10/18 Time of Evaluation: 11:45 - Subjective Subjective: pt states she feels better reports improvement in abd distension reports sitting in chair Objective - Vital Signs/Intake and Output Vital Signs (last 24 hours): Temp Pulse Resp BP Pulse Ox 98.8 F 92 H 25 H 168/75 H 99 06/10/18 08:00 06/10/18 10:00 06/10/18 10:00 06/10/18 10:00 06/10/18 10:00 Intake and Output: 06/10/18 06/10/18 06:59 18:59 Intake Total 3199 1000 Output Total 1210 350 Balance 1989 650 - Medications Medications: Current Medications Al Hydrox/Mg Hydrox/Simethicone (Maalox Plus 30 Ml) 30 ml PO Q4 PRN PRN Reason: Indigestion / Heartburn Last Admin: 06/05/18 21:28 Dose: 30 ml Docusate Sodium (Colace) 100 mg PO BID [facility] Last Admin: 06/10/18 08:20 Dose: Not Given Enoxaparin Sodium (Lovenox) 40 mg SC DAILY [facility] PRN Reason: Protocol Last Admin: 06/10/18 09:58 Dose: 40 mg Hydromorphone HCl (Dilaudid) 1 mg IVP Q3H PRN PRN Reason: Pain, severe (8-10) Last Admin: 06/10/18 07:37 Dose: 1 mg Clindamycin Phosphate 600 mg/ (Sodium Chloride) 54 mls @ 54 mls/hr IVPB Q8@0600 ,1400,2200 [facility] PRN Reason: Protocol Last Admin: 06/10/18 05:08 Dose: 54 mls/hr Metronidazole (Flagyl 500mg/100ml Ns) 100 mls @ 100 mls/hr IVPB Q8 [facility] PRN Reason: Protocol Last Admin: 06/10/18 08:20 Dose: 100 mls/hr Meropenem 1 gm/ Sodium (Chloride) 100 mls @ 100 mls/hr IVPB Q8 [facility] PRN Reason: Protocol Last Admin: 06/10/18 09:57 Dose: 100 mls/hr Potassium Chloride/Dextrose/Sod Cl (Potassium Chl 20 Meq In D5-1/2ns) 1,000 mls @ 150 mls/hr IV .Q6H40M [facility] Stop: 06/14/18 08:16 Last Admin: 06/10/18 09:15 Dose: 150 mls/hr Ondansetron HCl (Zofran Inj) 4 mg IVP Q6H PRN PRN Reason: Nausea/Vomiting Pantoprazole Sodium (Protonix Inj) 40 mg IVP DAILY [facility] Last Admin: 06/10/18 08:21 Dose: 40 mg Simethicone (Mylicon Chew Tab) 80 mg PO TID PRN PRN Reason: Flatulence Last Admin: 06/06/18 16:43 Dose: 80 mg - Labs Labs: 06/10/18 04:30 06/10/18 04:30 PT 12.5 Seconds (9.8-13.1) 06/07/18 11:34 INR 1.1 06/07/18 11:34 APTT 31.2 Seconds (25.6-37.1) 06/07/18 11:34 - Head Exam Head Exam: ATRAUMATIC - Respiratory Exam Respiratory Exam: NORMAL BREATHING PATTERN - Cardiovascular Exam Cardiovascular Exam: REGULAR RHYTHM - GI/Abdominal Exam Additional comments: vertical scar Assessment and Plan - Assessment and Plan (Free Text) Assessment: s/p laparotomy, ileostomy POD 3 improving afebrile POC discussed with Family analgesia as needed abx surgical management of colostomy cont present care
[2018-06-10] MEDS: Linezolid 600 mg in D5W 300 ml 600 MG/300 ML BAG IVPB SCH ×2 (14:11→23:59)
--- NOTE | 2018-06-10 15:09 | CP.CCUPN ---
CCU Subjective - Physician Review Subjective (Free Text): Awake, alert, no distress, has tolerated getting OOB on a daily basis since extubation on 06/08. . Other vitals and I/O's reviewed. Temps mostly 99F. No hypotensive episodes, Hr 90s in sinus. Overall positive 3.3L fluid balance last 24H. ROS: No other pertinent negs or positives on 10+ system review. PMSFH: All other Nursing and physician documentation reviewed to date; no new pertinent info noted relevant to current medical problems. EXAM- HEENT: no cterus, no gaze preference, Pupils 3 mm and reactive NECK: No JVD visible, supple, carotids equal upstroke bilat/no bruits CHEST: decreased BS bases, no wheezes audible HEART: regular, distant, tachy S1S2, no rubs ABD: softly distended, obese, BS absent, bilat JPs showing serosang fluid drainage EXT: no calf tenderness or palpable cords, distal pulses intact and symmetrical. NEURO: no focal gross motor deficits. SKIN: no rashes, warm and dry. LABS: WBC= 11.6 HGB= 8.3 PLTs= 431K Na= 139 K= 3.3 CL= 106 HCO3=26 BUN/Cr= 9/0.6 BS= 85 Blood Cx x1 for Micrococcus Wound Cx shows E. cloacae, and E. faecalis IMPRESSION / MAJOR PROBLEMS NOW: 1. s/p Extubation (in ICU after Post-op overnight yesterday) for Acute Resp [id number]. 2. s/p Peritoneal Abscess drainage / Repair Right Colonic fistula with Enterobacter and Enterococcal infection. 3. Acute on Chronic Disease Anemia with recent Intraoperative blood loss 4. Obesity PLAN: 1. Abx coverage tailored to cover E. cloacea and E. Faecalis with Merrem and Zyvox as per ID; follow temps, slight leukocytosis today. 2. Additional fluid challenges for any oliguria, expect much transabdominal fluid shifts due to intra-abdominal infection. 3. Post-op mgmt, ambulation, incentive spirometry, DVT prophylaxis, nutritional support as per Surgical team.
--- NOTE | 2018-06-10 17:23 | CP.PCM.PN ---
Subjective - Date & Time of Evaluation Date of Evaluation: 06/10/18 Time of Evaluation: 17:22 - Subjective Subjective: I D NOTE HAVE REVIEWED AND DISCUSSED c INTRAOPERATIVE CULTURES :ENTEROBACTER CLOACAE(GRAM NEG RODS) SENSITIVE TO MEROPENEM(RX at PRESENT) :ENTEROCOCCUS FAECALIS SENSITIVE TO ZYVOX,VANCOMYCIN, PCN BEST MICs and least neprotoxicity to ZYVOX FOR PRESENT RX c zyvox,meropenem, flagyl Objective - Vital Signs/Intake and Output Vital Signs (last 24 hours): Temp Pulse Resp BP Pulse Ox 99.4 F 92 H 20 149/51 L 96 06/10/18 16:00 06/10/18 16:00 06/10/18 16:00 06/10/18 16:00 06/10/18 16:00 Intake and Output: 06/10/18 06/10/18 06:59 18:59 Intake Total 3199 2250 Output Total 1210 350 Balance 1989 1900 - Medications Medications: Current Medications Al Hydrox/Mg Hydrox/Simethicone (Maalox Plus 30 Ml) 30 ml PO Q4 PRN PRN Reason: Indigestion / Heartburn Last Admin: 06/05/18 21:28 Dose: 30 ml Docusate Sodium (Colace) 100 mg PO BID [facility] Last Admin: 06/10/18 16:07 Dose: Not Given Enoxaparin Sodium (Lovenox) 40 mg SC DAILY [facility] PRN Reason: Protocol Last Admin: 06/10/18 09:58 Dose: 40 mg Metronidazole (Flagyl 500mg/100ml Ns) 100 mls @ 100 mls/hr IVPB Q8 [facility] PRN Reason: Protocol Last Admin: 06/10/18 16:08 Dose: 100 mls/hr Meropenem 1 gm/ Sodium (Chloride) 100 mls @ 100 mls/hr IVPB Q8 [facility] PRN Reason: Protocol Last Admin: 06/10/18 09:57 Dose: 100 mls/hr Potassium Chloride/Dextrose/Sod Cl (Potassium Chl 20 Meq In D5-1/2ns) 1,000 mls @ 150 mls/hr IV .Q6H40M [facility] Stop: 06/14/18 08:16 Last Admin: 06/10/18 09:15 Dose: 150 mls/hr Linezolid (Zyvox 600mg/300ml D5w) 600 mg in 300 mls @ 300 mls/hr IVPB Q12 [facility] PRN Reason: Protocol Last Admin: 06/10/18 14:11 Dose: 300 mls/hr Ondansetron HCl (Zofran Inj) 4 mg IVP Q6H PRN PRN Reason: Nausea/Vomiting Pantoprazole Sodium (Protonix Inj) 40 mg IVP DAILY [facility] Last Admin: 06/10/18 08:21 Dose: 40 mg Simethicone (Mylicon Chew Tab) 80 mg PO TID PRN PRN Reason: Flatulence Last Admin: 06/06/18 16:43 Dose: 80 mg - Labs Labs: 06/10/18 04:30 06/10/18 04:30 PT 12.5 Seconds (9.8-13.1) 06/07/18 11:34 INR 1.1 06/07/18 11:34 APTT 31.2 Seconds (25.6-37.1) 06/07/18 11:34
[2018-06-10] MEDS ORDERED: Chlorhexidine Gluconate 1 APPL/PKT TP ONE (18:28)
[2018-06-11] MEDS: Meropenem 1 GM in Sodium Chloride 0.9% 100 ML IVPB SCH ×3 (02:04→17:40)
[2018-06-11] MEDS: metroNIDAZOLE 500mg/100ml NS 100 ML IVPB SCH ×3 (02:06→16:44)
[2018-06-11] MEDS ORDERED: HYDROmorphone 1 mg/ml ISec IVP PRN (05:27)
[2018-06-11] MEDS: Potassium Ch 20mEq in D5-1/2NS 1,000 ML IV SCH ×2 (05:55→19:34)
[2018-06-11 06:15] LABS: BASO # 0.2 K/uL (0.0-0.2); BASO % 1.2 % (0.0-2.0); EOS # 0.2 K/uL (0.0-0.7); EOS % 1.8 % (0.0-4.0); HEMOGLOBIN 8.1 g/dL (12.0-16.0); LYMPH # 1.8 K/uL (1.0-4.3); MEAN CORPUSCULAR HEMOGLOBIN 30.1 pg (27.0-31.0); MEAN CORPUSCULAR HGB CONC 33.1 g/dL (33.0-37.0); MEAN PLATELET VOLUME 6.8 fl (7.2-11.7); MONO # 1.1 K/uL (0.0-0.8); NEUT # 10.5 K/uL (1.8-7.0); NRBC % 0.1 % (0.0-0.0); RBC 2.68 Mil/uL (3.80-5.20); RED CELL DISTRIBUTION WIDTH 14.5 % (11.5-14.5); WHITE BLOOD COUNT 13.8 K/uL (4.8-10.8)
[2018-06-11 06:48] LABS: BLOOD UREA NITROGEN 5 mg/dl (7-17); CALCIUM 7.6 mg/dL (8.4-10.2); GFR NON-AFRICAN AMERICAN > 60
[2018-06-11] MEDS: Enoxaparin 40 mg Syringe SC SCH (08:58)
[2018-06-11] MEDS: Linezolid 600 mg in D5W 300 ml 600 MG/300 ML BAG IVPB SCH ×2 (09:01→21:19)
--- NOTE | 2018-06-11 09:13 | CP.CCUPN ---
CCU Subjective - Physician Review Events Since Last Encounter (Free Text): Patient awake, no distress, no fever, NG tube in place, no pressors, events reviewed CCU Objective - Vital Signs / Intake & Output Vital Signs (Last 4 hours): Vital Signs Temp Pulse Resp BP Pulse Ox 06/11/18 08:00 98.6 F 76 20 149/83 94 L 06/11/18 06:00 85 144/77 98 Intake and Output (Last 8hrs): Intake & Output 06/10/18 06/11/18 06/11/18 22:59 06:59 14:59 Intake Total 1550 1650 Output Total 1545 1165 Balance 5 485 Intake: IV 1050 1200 Intake, Piggyback 400 450 Free Water Flush 100 Output: Gastric Amount 350 400 Nares 350 400 Drainage 70 65 Left Abdomen 50 Left Anterior Abdomen 20 5 Right Abdomen 50 10 Urine 1125 700 Urethral (Knight) 300 Urine, Voided 825 700 - Physical Exam Head: Positive for: Atraumatic, Normocephalic Pupils: Positive for: PERRL Extroacular Muscles: Positive for: EOMI Conjunctiva: Positive for: Normal. Negative for: Injected, Icteric Mouth: Positive for: Moist Mucous Membranes Nose (Internal): Positive for: Normal Inspection Neck: Positive for: Normal Range of Motion, Trachea Midline. Negative for: Meningeal Signs, MIDLINE TENDERNESS, Paraspinal Tenderness, JVD, Lymphadenopathy , Bruit, Other Respiratory/Chest: Positive for: Decreased Breath Sounds. Negative for: Respiratory Distress, Accessory Muscle Use, Wheezes, Rales, Retracting, Rhonchi Cardiovascular: Positive for: Regular Rate and Rhythm, Normal S1, S2, Peripheal Pulses Present. Negative for: Murmurs, Tachycardic, Bradycardic Abdomen: Positive for: Tenderness, Distention, Other (Roger (x 2 (RLQ/LLQ), 19 fr), midline sergical scar, dressing C/D/I, + ileostomy). Negative for: Normal Bowel Sounds - Medications Active Medications: Active Medications Generic Name Dose Route Start Last Admin Trade Name Freq PRN Reason Stop Dose Admin Al Hydrox/Mg Hydrox/Simethicone 30 ml 06/04/18 19:48 06/05/18 21:28 Maalox Plus 30 Ml PO 30 ml Q4 PRN Administration Indigestion / Heartburn Docusate Sodium 100 mg 06/03/18 17:00 06/11/18 08:56 Colace PO Not Given BID [facility] Enoxaparin Sodium 40 mg 06/08/18 11:45 06/11/18 08:58 Lovenox SC 40 mg DAILY [facility] Administration Protocol Hydromorphone HCl 0.5 mg 06/11/18 08:37 06/11/18 09:04 Dilaudid IVP 0.5 mg Q4 PRN Administration Pain, moderate (4-7) Metronidazole 100 mls @ 100 mls/hr 06/08/18 11:00 06/11/18 08:58 Flagyl 500mg/100ml Ns IVPB 100 mls/hr Q8 [facility] Administration Protocol Meropenem 1 gm/ Sodium 100 mls @ 100 mls/hr 06/09/18 18:00 06/11/18 08:59 Chloride IVPB 100 mls/hr Q8 [facility] Administration Protocol Potassium Chloride/Dextrose/Sod Cl 1,000 mls @ 150 mls/hr 06/10/18 08:15 05:55 Potassium Chl 20 Meq In D5-1/2ns IV 06/14/18 08:16 150 mls/hr .Q6H40M [facility] Administration Linezolid 600 mg in 300 mls @ 300 mls/hr 06/10/18 12:45 06/11/18 09:01 Zyvox 600mg/300ml D5w IVPB 300 mls/hr Q12 [facility] Administration Protocol Ketorolac Tromethamine 30 mg 06/11/18 00:15 06/11/18 05:53 Toradol IVP 06/15/18 18:16 30 mg Q6H [facility] Administration Ondansetron HCl 4 mg 06/07/18 16:00 06/11/18 07:26 Zofran Inj IVP 4 mg Q6H PRN Administration Nausea/Vomiting Pantoprazole Sodium 40 mg 06/09/18 09:00 06/11/18 09:00 Protonix Inj IVP 40 mg DAILY [facility] Administration Simethicone 80 mg 06/04/18 19:49 06/06/18 16:43 Mylicon Chew Tab PO 80 mg TID PRN Administration Flatulence - Patient Studies Lab Studies: Microbiology Studies 06/06/18 11:31 Blood Culture - Preliminary Blood NO GROWTH AFTER 4 DAYS 06/07/18 17:00 Gram Stain - Final Other: Please Indicate Wound Culture - Final Enterobacter Cloacae Ssp Cloac Enterococcus Faecalis Lab Studies 06/11/18 06/11/18 06/07/18 Range/Units 05:30 05:30 11:34 WBC 13.8 H (4.8-10.8) K/uL RBC 2.68 L (3.80-5.20) Mil/uL Hgb 8.1 L (12.0-16.0) g/dL Hct 24.4 L (34.0-47.0) % MCV 91.0 (81.0-99.0) fl MCH 30.1 (27.0-31.0) pg MCHC 33.1 (33.0-37.0) g/dL RDW 14.5 (11.5-14.5) % Plt Count 467 H (130-400) K/uL MPV 6.8 L (7.2-11.7) fl Neut % (Auto) 76.0 H (50.0-75.0) % Lymph % (Auto) 13.0 L (20.0-40.0) % Fajardo % (Auto) 8.0 (0.0-10.0) % Eos % (Auto) 1.8 (0.0-4.0) % Baso % (Auto) 1.2 (0.0-2.0) % Neut # (Auto) 10.5 H (1.8-7.0) K/uL Lymph # (Auto) 1.8 (1.0-4.3) K/uL Fajardo # (Auto) 1.1 H (0.0-0.8) K/uL Eos # (Auto) 0.2 (0.0-0.7) K/uL Baso # (Auto) 0.2 (0.0-0.2) K/uL Sodium 137 (132-148) mmol/l Potassium 3.8 (3.6-5.0) MMOL/L Chloride 102 (98-107) mmol/L Carbon Dioxide 34 H (22-30) mmol/L Anion Gap 5 L (10-20) BUN 5 L (7-17) mg/dl Creatinine 0.6 L (0.7-1.2) mg/dl Est GFR ( Amer) > 60 Est GFR (Non-Af Amer) > 60 Random Glucose 137 H (65-105) mg/dL Calcium 7.6 L (8.4-10.2) mg/dL Crossmatch See Detail Laboratory Results - last 24 hr 06/07/18 06/11/18 06/11/18 11:34 05:30 05:30 WBC 13.8 H RBC 2.68 L Hgb 8.1 L Hct 24.4 L MCV 91.0 MCH 30.1 MCHC 33.1 RDW 14.5 Plt Count 467 H MPV 6.8 L Neut % (Auto) 76.0 H Lymph % (Auto) 13.0 L Fajardo % (Auto) 8.0 Eos % (Auto) 1.8 Baso % (Auto) 1.2 Neut # (Auto) 10.5 H Lymph # (Auto) 1.8 Fajardo # (Auto) 1.1 H Eos # (Auto) 0.2 Baso # (Auto) 0.2 Sodium 137 Potassium 3.8 Chloride 102 Carbon Dioxide 34 H Anion Gap 5 L BUN 5 L Creatinine 0.6 L Est GFR ( Amer) > 60 Est GFR (Non-Af Amer) > 60 Random Glucose 137 H Calcium 7.6 L Crossmatch See Detail Critical Care Progress Note - Nutrition Nutrition: Nutrition Category Date Time Status NPO Diet [DIET] Diets 06/06/18 Dinner Active Assessment/Plan - Assessment and Plan (Free Text) Assessment: A/P Respiratory in sufficiency, s/p peritoneal abscess drainage / repair Rt colonic fistula, anemia, obesity, sepsis - Pulmonary toilets - Continue meds - Surgery follow up
--- NOTE | 2018-06-11 09:27 | CP.PCM.PN ---
Subjective - Date & Time of Evaluation Date of Evaluation: 06/11/18 Time of Evaluation: 07:00 - Subjective Subjective: SURGERY PROGRESS NOTE FOR DR. GOMEZ Patient seen and examined at bedside in ICU. She denies abdominal pain but feels "pressure", states her pain is controlled with pain medications. Notes discomfort from NG tube. Had some nausea this AM and received Zofran. Denies vomiting. No stool output from ostomy yet. She ambulated with PT yesterday. She has been OOB to chair and is using her IS. She states that she will get OOB to chair this morning. NG tube was flushed. Objective - Vital Signs/Intake and Output Vital Signs (last 24 hours): Temp Pulse Resp BP Pulse Ox 98.6 F 76 20 149/83 94 L 06/11/18 08:00 06/11/18 08:00 06/11/18 08:00 06/11/18 08:00 06/11/18 08:00 Intake and Output: 06/11/18 06/11/18 06:59 18:59 Intake Total 2350 Output Total 1640 Balance 710 - Medications Medications: Current Medications Al Hydrox/Mg Hydrox/Simethicone (Maalox Plus 30 Ml) 30 ml PO Q4 PRN PRN Reason: Indigestion / Heartburn Last Admin: 06/05/18 21:28 Dose: 30 ml Docusate Sodium (Colace) 100 mg PO BID [facility] Last Admin: 06/11/18 08:56 Dose: Not Given Enoxaparin Sodium (Lovenox) 40 mg SC DAILY [facility] PRN Reason: Protocol Last Admin: 06/11/18 08:58 Dose: 40 mg Hydromorphone HCl (Dilaudid) 0.5 mg IVP Q4 PRN PRN Reason: Pain, moderate (4-7) Last Admin: 06/11/18 09:04 Dose: 0.5 mg Metronidazole (Flagyl 500mg/100ml Ns) 100 mls @ 100 mls/hr IVPB Q8 [facility] PRN Reason: Protocol Last Admin: 06/11/18 08:58 Dose: 100 mls/hr Meropenem 1 gm/ Sodium (Chloride) 100 mls @ 100 mls/hr IVPB Q8 [facility] PRN Reason: Protocol Last Admin: 06/11/18 08:59 Dose: 100 mls/hr Potassium Chloride/Dextrose/Sod Cl (Potassium Chl 20 Meq In D5-1/2ns) 1,000 mls @ 150 mls/hr IV .Q6H40M [facility] Stop: 06/14/18 08:16 Last Admin: 06/11/18 05:55 Dose: 150 mls/hr Linezolid (Zyvox 600mg/300ml D5w) 600 mg in 300 mls @ 300 mls/hr IVPB Q12 [facility] PRN Reason: Protocol Last Admin: 06/11/18 09:01 Dose: 300 mls/hr Ketorolac Tromethamine (Toradol) 30 mg IVP Q6H [facility] Stop: 06/15/18 18:16 Last Admin: 06/11/18 05:53 Dose: 30 mg Ondansetron HCl (Zofran Inj) 4 mg IVP Q6H PRN PRN Reason: Nausea/Vomiting Last Admin: 06/11/18 07:26 Dose: 4 mg Pantoprazole Sodium (Protonix Inj) 40 mg IVP DAILY [facility] Last Admin: 06/11/18 09:00 Dose: 40 mg Simethicone (Mylicon Chew Tab) 80 mg PO TID PRN PRN Reason: Flatulence Last Admin: 06/06/18 16:43 Dose: 80 mg - Labs Labs: 06/11/18 05:30 06/11/18 05:30 PT 12.5 Seconds (9.8-13.1) 06/07/18 11:34 INR 1.1 06/07/18 11:34 APTT 31.2 Seconds (25.6-37.1) 06/07/18 11:34 - Constitutional Appears: Well, Non-toxic, No Acute Distress - Head Exam Head Exam: ATRAUMATIC, NORMAL INSPECTION - Eye Exam Eye Exam: EOMI, Normal appearance - Respiratory Exam Respiratory Exam: NORMAL BREATHING PATTERN. absent: Respiratory Distress - Cardiovascular Exam Cardiovascular Exam: +S1, +S2 - GI/Abdominal Exam GI & Abdominal Exam: Distended (mild), Soft, Tenderness (mild tenderness damian-i ncisional). absent: Firm, Guarding, Rebound Additional comments: Dressing with small amount of drainage - changed Bilateral priyanka drains in place with serosanguinous drainage Overnight outputs: Right priyanka: 10cc Left priyanka: 5cc Ileostomy: 50cc serosanguinous NG tube: 200cc Urine: 1500cc - Neurological Exam Neurological Exam: Alert, Awake, Oriented x3 - Psychiatric Exam Psychiatric exam: Normal Affect, Normal Mood - Skin Skin Exam: Dry, Normal Color, Warm Assessment and Plan - Assessment and Plan (Free Text) Assessment: 53F s/p robotic culdoplasty with cecal perforation s/p ex-lap with repair of perf & diverting loop ileostomy; POD#4 Plan: - Cont NPO w/ NGT on suction due to continued high output (750cc over past 24 hours) - Continue IV fluid hydration - Cont to monitor strict Is & Os - Cx from OR grew: enterobacter & enterococcus faecalis - Abx changed to Linezolid, Merrem, Flagyl per ID - Dilaudid decreased from 1 to 0.5mg and toradol added - NG tube was flushed and dressing changed - Strongly encouraged OOB, ambulation with PT and Incentive Spirometer use - Discussed plan with Dr. Malcolm Phillips PGY-4
[2018-06-11] MEDS ORDERED: Chlorhexidine Gluconate 1 APPL/PKT TP ONE (18:41)
[2018-06-12] MEDS: metroNIDAZOLE 500mg/100ml NS 100 ML IVPB SCH ×3 (00:01→19:30)
[2018-06-12] MEDS: Meropenem 1 GM in Sodium Chloride 0.9% 100 ML IVPB SCH ×3 (01:02→18:28)
[2018-06-12 05:52] LABS: SQUAMOUS EPITHIAL 4 /hpf (0-5); URINE BILIRUBIN NEGATIVE (NEGATIVE); URINE BLOOD SMALL (NEGATIVE); URINE CLARITY SLIGHTY-CLOUDY (Clear); URINE COLOR YELLOW (YELLOW); URINE GLUCOSE (UA) NEG (Normal); URINE LEUKOCYTE ESTERASE NEG Leu/uL (Negative); URINE PROTEIN NEGATIVE (NEGATIVE); URINE UROBILINOGEN 0.2-1.0 mg/dL (0.2-1.0)
[2018-06-12] MEDS: Potassium Ch 20mEq in D5-1/2NS 1,000 ML IV SCH ×2 (06:42→06:43)
[2018-06-12 07:47] LABS: BASO # 0.1 K/uL (0.0-0.2); BASO % 0.3 % (0.0-2.0); EOS # 0.2 K/uL (0.0-0.7); EOS % 1.1 % (0.0-4.0); HEMOGLOBIN 7.8 g/dL (12.0-16.0); LYMPH # 1.8 K/uL (1.0-4.3); LYMPH % 11.1 % (20.0-40.0); MEAN CELL VOLUME 90.3 fl (81.0-99.0); MEAN CORPUSCULAR HEMOGLOBIN 29.4 pg (27.0-31.0); MEAN CORPUSCULAR HGB CONC 32.5 g/dL (33.0-37.0); MEAN PLATELET VOLUME 6.6 fl (7.2-11.7); MONO # 0.9 K/uL (0.0-0.8); MONO % 5.7 % (0.0-10.0); NEUT # 13.1 K/uL (1.8-7.0); NEUT % 81.8 % (50.0-75.0); NRBC % 0.1 % (0.0-0.0); RBC 2.65 Mil/uL (3.80-5.20); RED CELL DISTRIBUTION WIDTH 14.5 % (11.5-14.5); WHITE BLOOD COUNT 16.1 K/uL (4.8-10.8)
--- NOTE | 2018-06-12 08:16 | CP.PCM.PN ---
Subjective - Date & Time of Evaluation Date of Evaluation: 06/12/18 Time of Evaluation: 08:13 - Subjective Subjective: Surgery: Dr. Fowler Pt seen and examined. No acute overnight events. Pt's NGT fell out yesterday and was replaced, with 200cc/12hr of bilious output. Pt states her abdominal pain is about the same but is well controlled at this time with the pain meds. She denies fevers/chills. Objective - Vital Signs/Intake and Output Vital Signs (last 24 hours): Temp Pulse Resp BP Pulse Ox 97.8 F 77 18 141/86 99 06/11/18 23:30 06/11/18 23:30 06/11/18 23:30 06/11/18 23:30 06/11/18 23:30 - Medications Medications: Current Medications Al Hydrox/Mg Hydrox/Simethicone (Maalox Plus 30 Ml) 30 ml PO Q4 PRN PRN Reason: Indigestion / Heartburn Last Admin: 06/05/18 21:28 Dose: 30 ml Docusate Sodium (Colace) 100 mg PO BID [facility] Last Admin: 06/11/18 16:19 Dose: Not Given Enoxaparin Sodium (Lovenox) 40 mg SC DAILY [facility] PRN Reason: Protocol Last Admin: 06/11/18 08:58 Dose: 40 mg Hydromorphone HCl (Dilaudid) 0.5 mg IVP Q4 PRN PRN Reason: Pain, moderate (4-7) Last Admin: 06/12/18 04:53 Dose: 0.5 mg Metronidazole (Flagyl 500mg/100ml Ns) 100 mls @ 100 mls/hr IVPB Q8 [facility] PRN Reason: Protocol Last Admin: 06/12/18 00:01 Dose: 100 mls/hr Meropenem 1 gm/ Sodium (Chloride) 100 mls @ 100 mls/hr IVPB Q8 [facility] PRN Reason: Protocol Last Admin: 06/12/18 01:02 Dose: 100 mls/hr Potassium Chloride/Dextrose/Sod Cl (Potassium Chl 20 Meq In D5-1/2ns) 1,000 mls @ 150 mls/hr IV .Q6H40M [facility] Stop: 06/14/18 08:16 Last Admin: 06/12/18 06:43 Dose: 150 mls/hr Linezolid (Zyvox 600mg/300ml D5w) 600 mg in 300 mls @ 300 mls/hr IVPB Q12 [facility] PRN Reason: Protocol Last Admin: 06/11/18 21:19 Dose: 300 mls/hr Ketorolac Tromethamine (Toradol) 30 mg IVP Q6H [facility] Stop: 06/15/18 18:16 Last Admin: 06/12/18 06:02 Dose: 30 mg Ondansetron HCl (Zofran Inj) 4 mg IVP Q6H PRN PRN Reason: Nausea/Vomiting Last Admin: 06/12/18 06:04 Dose: 4 mg Pantoprazole Sodium (Protonix Inj) 40 mg IVP DAILY [facility] Last Admin: 06/11/18 09:00 Dose: 40 mg Simethicone (Mylicon Chew Tab) 80 mg PO TID PRN PRN Reason: Flatulence Last Admin: 06/06/18 16:43 Dose: 80 mg - Labs Labs: 06/12/18 06:20 06/11/18 05:30 PT 12.5 Seconds (9.8-13.1) 06/07/18 11:34 INR 1.1 06/07/18 11:34 APTT 31.2 Seconds (25.6-37.1) 06/07/18 11:34 - Constitutional Appears: Well, No Acute Distress - Eye Exam Eye Exam: Normal appearance - ENT Exam ENT Exam: Mucous Membranes Moist Additional comments: NGT in place with bilious output - Respiratory Exam Respiratory Exam: NORMAL BREATHING PATTERN - Cardiovascular Exam Cardiovascular Exam: RRR - GI/Abdominal Exam GI & Abdominal Exam: Soft, Tenderness (around midline incision; hossein in place, C/D/I. b/l priyanka drains with minimal serosang output. Ostomy pink/patent with liquid in bag ). absent: Guarding, Rebound - Neurological Exam Neurological Exam: Alert, Awake, Oriented x3 - Skin Skin Exam: Dry, Warm Assessment and Plan - Assessment and Plan (Free Text) Assessment: 53F s/p robotic culdoplasty with cecal perforation s/p Ex-lap with diverting lo op ileostomy; POD#5 Plan: - cont NPO with NGT - cont IVF hydration - WBC trending up; f/u CXR & urine C&S - cont IV ABX, ID on board - monitor bowel function/ostomy output - encourage ambulation & incentive spirometry - d/w Dr. Malcolm Jamison
[2018-06-12 08:20] LABS: BLOOD UREA NITROGEN 3 mg/dl (7-17); CALCIUM 7.7 mg/dL (8.4-10.2); GFR NON-AFRICAN AMERICAN > 60
--- NOTE | 2018-06-12 08:33 | RAD ---
Date of service: 06/11/2018 HISTORY: s/p NG tube placement COMPARISON: No prior. FINDINGS: LUNGS: No active pulmonary disease. PLEURA: No significant pleural effusion identified, no pneumothorax apparent. CARDIOVASCULAR: Normal. OSSEOUS STRUCTURES: No significant abnormalities. VISUALIZED UPPER ABDOMEN: Normal. OTHER FINDINGS: None. IMPRESSION: No active disease.
[2018-06-12] MEDS: Enoxaparin 40 mg Syringe SC SCH (09:26)
[2018-06-12] MEDS: Linezolid 600 mg in D5W 300 ml 600 MG/300 ML BAG IVPB SCH (12:30)
[2018-06-12 12:48] LABS: SQUAMOUS EPITHIAL 7 /hpf (0-5); URINE BACTERIA RARE (<OCC); URINE BILIRUBIN NEGATIVE (NEGATIVE); URINE BLOOD SMALL (NEGATIVE); URINE CLARITY SLIGHTY-CLOUDY (Clear); URINE COLOR AMBER (YELLOW); URINE GLUCOSE (UA) NEG (Normal); URINE LEUKOCYTE ESTERASE TRACE Leu/uL (Negative); URINE PROTEIN 30 mg/dL (NEGATIVE); URINE UROBILINOGEN 0.2-1.0 mg/dL (0.2-1.0)
--- NOTE | 2018-06-12 16:52 | CP.PCM.PN ---
Subjective - Date & Time of Evaluation Date of Evaluation: 06/12/18 Time of Evaluation: 16:54 - Subjective Subjective: I D NOTE WBC HAS INCREASED FROM 8 TO 16 HAVE DECREASED ZYVOX ANDSTARTED UNASYN (SEE MICs) would consider ct scan for evaluatio Objective - Vital Signs/Intake and Output Vital Signs (last 24 hours): Temp Pulse Resp BP Pulse Ox 97.9 F 75 18 148/82 100 06/12/18 08:21 06/12/18 08:21 06/12/18 08:21 06/12/18 08:21 06/12/18 08:21 - Medications Medications: Current Medications Al Hydrox/Mg Hydrox/Simethicone (Maalox Plus 30 Ml) 30 ml PO Q4 PRN PRN Reason: Indigestion / Heartburn Last Admin: 06/05/18 21:28 Dose: 30 ml Docusate Sodium (Colace) 100 mg PO BID [facility] Last Admin: 06/12/18 09:29 Dose: Not Given Enoxaparin Sodium (Lovenox) 40 mg SC DAILY [facility] PRN Reason: Protocol Last Admin: 06/12/18 09:26 Dose: 40 mg Hydromorphone HCl (Dilaudid) 0.5 mg IVP Q4 PRN PRN Reason: Pain, moderate (4-7) Last Admin: 06/12/18 13:09 Dose: 0.5 mg Metronidazole (Flagyl 500mg/100ml Ns) 100 mls @ 100 mls/hr IVPB Q8 [facility] PRN Reason: Protocol Last Admin: 06/12/18 09:26 Dose: 100 mls/hr Meropenem 1 gm/ Sodium (Chloride) 100 mls @ 100 mls/hr IVPB Q8 [facility] PRN Reason: Protocol Last Admin: 06/12/18 10:48 Dose: 100 mls/hr Ampicillin Sodium/Sulbactam (Sodium 3 gm/ Sodium Chloride) 100 mls @ 100 mls/ hr IVPB Q8H [facility] PRN Reason: Protocol Ketorolac Tromethamine (Toradol) 30 mg IVP Q6H [facility] Stop: 06/15/18 18:16 Last Admin: 06/12/18 13:21 Dose: 30 mg Ondansetron HCl (Zofran Inj) 4 mg IVP Q6H PRN PRN Reason: Nausea/Vomiting Last Admin: 06/12/18 13:20 Dose: 4 mg Pantoprazole Sodium (Protonix Inj) 40 mg IVP DAILY [facility] Last Admin: 06/12/18 09:25 Dose: 40 mg Simethicone (Mylicon Chew Tab) 80 mg PO TID PRN PRN Reason: Flatulence Last Admin: 06/06/18 16:43 Dose: 80 mg - Labs Labs: 06/12/18 06:20 06/12/18 06:20 PT 12.5 Seconds (9.8-13.1) 06/07/18 11:34 INR 1.1 06/07/18 11:34 APTT 31.2 Seconds (25.6-37.1) 06/07/18 11:34
[2018-06-12] MEDS ORDERED: Potassium Ch 20mEq in D5-1/2NS 1,000 ML IV SCH (18:45)
[2018-06-13] MEDS: Meropenem 1 GM in Sodium Chloride 0.9% 100 ML IVPB SCH ×3 (00:01→20:26)
[2018-06-13] MEDS: metroNIDAZOLE 500mg/100ml NS 100 ML IVPB SCH ×3 (00:45→21:29)
[2018-06-13] MEDS: Potassium Ch 20mEq in D5-1/2NS 1,000 ML IV SCH (02:52)
[2018-06-13 06:14] LABS: BASO # 0.1 K/uL (0.0-0.2); BASO % 0.5 % (0.0-2.0); EOS # 0.2 K/uL (0.0-0.7); EOS % 1.2 % (0.0-4.0); HEMOGLOBIN 7.9 g/dL (12.0-16.0); LYMPH # 1.7 K/uL (1.0-4.3); LYMPH % 11.4 % (20.0-40.0); MEAN CORPUSCULAR HEMOGLOBIN 29.9 pg (27.0-31.0); MEAN CORPUSCULAR HGB CONC 32.9 g/dL (33.0-37.0); MEAN PLATELET VOLUME 6.5 fl (7.2-11.7); MONO # 0.7 K/uL (0.0-0.8); MONO % 4.7 % (0.0-10.0); NEUT # 12.4 K/uL (1.8-7.0); NEUT % 82.2 % (50.0-75.0); RBC 2.66 Mil/uL (3.80-5.20); RED CELL DISTRIBUTION WIDTH 14.4 % (11.5-14.5)
[2018-06-13 06:28] LABS: BLOOD UREA NITROGEN < 2 mg/dl (7-17); CALCIUM 7.8 mg/dL (8.4-10.2); GFR NON-AFRICAN AMERICAN > 60
--- NOTE | 2018-06-13 07:36 | CP.PCM.PN ---
Subjective - Date & Time of Evaluation Date of Evaluation: 06/13/18 Time of Evaluation: 07:00 - Subjective Subjective: General Surgery Note for Dr. Fowler Patient seen and examined at bedside. No acute overnight event. Patient is NPO. She is still experiencing abdominal pain at surgical site. NGT is still in place with bilious output of 250cc/12hrs. Patient denies flatus but admits to liquid output from ileostomy (40cc overnight). Left and right blakes drains with ~5 cc of serosanguinous output over last 12 hrs. Patient is urinating without difficu lty (1000 cc overnight). She is ambulating and has been out of bed to chair. She continues to use IS. Denies fevers/chills. Objective - Vital Signs/Intake and Output Vital Signs (last 24 hours): Temp Pulse Resp BP Pulse Ox 97.8 F 86 18 148/84 99 06/13/18 00:12 06/13/18 00:12 06/13/18 00:12 06/13/18 00:12 06/13/18 00:12 Intake and Output: 06/13/18 06/13/18 06:59 18:59 Intake Total 1900 Output Total 1010 Balance 890 - Medications Medications: Current Medications Al Hydrox/Mg Hydrox/Simethicone (Maalox Plus 30 Ml) 30 ml PO Q4 PRN PRN Reason: Indigestion / Heartburn Last Admin: 06/05/18 21:28 Dose: 30 ml Docusate Sodium (Colace) 100 mg PO BID [facility] Last Admin: 06/12/18 18:25 Dose: Not Given Enoxaparin Sodium (Lovenox) 40 mg SC DAILY [facility] PRN Reason: Protocol Last Admin: 06/12/18 09:26 Dose: 40 mg Hydromorphone HCl (Dilaudid) 0.5 mg IVP Q4 PRN PRN Reason: Pain, moderate (4-7) Last Admin: 06/13/18 04:05 Dose: 0.5 mg Metronidazole (Flagyl 500mg/100ml Ns) 100 mls @ 100 mls/hr IVPB Q8 [facility] PRN Reason: Protocol Last Admin: 06/13/18 00:45 Dose: 100 mls/hr Meropenem 1 gm/ Sodium (Chloride) 100 mls @ 100 mls/hr IVPB Q8 [facility] PRN Reason: Protocol Last Admin: 06/13/18 00:01 Dose: 100 mls/hr Potassium Chloride/Dextrose/Sod Cl (Potassium Chl 20 Meq In D5-1/2ns) 1,000 mls @ 150 mls/hr IV .Q6H40M [facility] Stop: 06/15/18 18:42 Ampicillin Sodium/Sulbactam (Sodium 3 gm/ Sodium Chloride) 100 mls @ 100 mls/hr IVPB Q8@0200,1000,1800 [facility] PRN Reason: Protocol Last Admin: 06/13/18 01:59 Dose: 100 mls/hr Potassium Chloride (Potassium Chloride 20 Meq/100 Ml) 100 mls @ 50 mls/hr IVPB Q2 [facility] Stop: 06/13/18 11:59 Ketorolac Tromethamine (Toradol) 30 mg IVP Q6H [facility] Stop: 06/15/18 18:16 Last Admin: 06/13/18 06:13 Dose: 30 mg Ondansetron HCl (Zofran Inj) 4 mg IVP Q6H PRN PRN Reason: Nausea/Vomiting Last Admin: 06/13/18 04:07 Dose: 4 mg Pantoprazole Sodium (Protonix Inj) 40 mg IVP DAILY [facility] Last Admin: 06/12/18 09:25 Dose: 40 mg Simethicone (Mylicon Chew Tab) 80 mg PO TID PRN PRN Reason: Flatulence Last Admin: 06/06/18 16:43 Dose: 80 mg - Labs Labs: 06/13/18 05:45 06/13/18 05:45 PT 12.5 Seconds (9.8-13.1) 06/07/18 11:34 INR 1.1 06/07/18 11:34 APTT 31.2 Seconds (25.6-37.1) 06/07/18 11:34 - Additional Findings Additional findings: - Constitutional Appears: Well, No Acute Distress - Eye Exam Eye Exam: Normal appearance - ENT Exam ENT Exam: Mucous Membranes Moist Additional comments: NGT in place with bilious output - Respiratory Exam Respiratory Exam: NORMAL BREATHING PATTERN - Cardiovascular Exam Cardiovascular Exam: RRR - GI/Abdominal Exam GI & Abdominal Exam: Soft, Tenderness (around midline incision). absent: Guarding, Rebound hossein/sutures in place, dressing clean/dry/intact L & R priyanka drains with minimal serosanguinous output ileostomy pink/patent with liquid in bag - Neurological Exam Neurological Exam: Alert, Awake, Oriented x3 - Skin Skin Exam: Dry, Warm Assessment and Plan - Assessment and Plan (Free Text) Assessment: 53F s/p robotic culdoplasty with cecal perforation; s/p Ex-lap with diverting loop ileostomy POD#6 wound culture: (+) enterobacter cloaca, enterococcus faecalis (resistant to zosyn and tetracyclines, both specifically sensitive to ciprofloxacin) Plan: -NPO -NGT to low intermittent wall suction -IV fluids -f/u UA, urine C&S -continue IV ABX as per ID recommendations -Monitor bowel function/ileostomy output -Encourage ambulation/OOB to chair/incentive spirometry -Physcial therapy -PICC insertion -May need to begin TPN vs PPN -Further recommendations as per Dr. Malcolm Ndiaye PGY2
[2018-06-13] MEDS: Enoxaparin 40 mg Syringe SC SCH (09:01)
[2018-06-13] MEDS: Potassium Chloride 20 mEq 100 ML IVPB SCH ×2 (10:29→18:07)
[2018-06-14] MEDS: Meropenem 1 GM in Sodium Chloride 0.9% 100 ML IVPB SCH ×3 (03:11→20:06)
[2018-06-14] MEDS: metroNIDAZOLE 500mg/100ml NS 100 ML IVPB SCH ×3 (05:51→21:19)
[2018-06-14 06:25] LABS: BLOOD UREA NITROGEN 2 mg/dl (7-17); GFR NON-AFRICAN AMERICAN > 60
[2018-06-14 07:08] LABS: BASO # 0.1 K/uL (0.0-0.2); BASO % 0.9 % (0.0-2.0); EOS # 0.2 K/uL (0.0-0.7); EOS % 1.2 % (0.0-4.0); LYMPH # 1.7 K/uL (1.0-4.3); LYMPH % 12.4 % (20.0-40.0); MEAN CELL VOLUME 90.9 fl (81.0-99.0); MEAN CORPUSCULAR HEMOGLOBIN 30.4 pg (27.0-31.0); MEAN CORPUSCULAR HGB CONC 33.4 g/dL (33.0-37.0); MEAN PLATELET VOLUME 6.7 fl (7.2-11.7); MONO # 0.7 K/uL (0.0-0.8); MONO % 4.9 % (0.0-10.0); NEUT # 11.1 K/uL (1.8-7.0); NEUT % 80.6 % (50.0-75.0); NRBC % 0.1 % (0.0-0.0); RBC 2.62 Mil/uL (3.80-5.20); RED CELL DISTRIBUTION WIDTH 14.4 % (11.5-14.5); WHITE BLOOD COUNT 13.7 K/uL (4.8-10.8)
--- NOTE | 2018-06-14 07:37 | CP.PCM.PN ---
Subjective - Date & Time of Evaluation Date of Evaluation: 06/14/18 Time of Evaluation: 07:35 - Subjective Subjective: Surgery: Dr. Fowler Pt seen and examined. No acute overnight events. Pt states she feels well and about the same as yesterday. Her pain is well controlled at this time. She states she feels "rumbling" in her stomach but otherwise denies any gas in the ostomy. Admits to ambulating. Denies N/V, F/C. Objective - Vital Signs/Intake and Output Vital Signs (last 24 hours): Temp Pulse Resp BP Pulse Ox 98.5 F 91 H 19 162/84 H 96 06/14/18 00:00 06/14/18 00:00 06/14/18 00:00 06/14/18 00:00 06/14/18 00:00 Intake and Output: 06/14/18 06/14/18 06:59 18:59 Output Total 1505 Balance -1505 - Medications Medications: Current Medications Al Hydrox/Mg Hydrox/Simethicone (Maalox Plus 30 Ml) 30 ml PO Q4 PRN PRN Reason: Indigestion / Heartburn Last Admin: 06/05/18 21:28 Dose: 30 ml Docusate Sodium (Colace) 100 mg PO BID [facility] Last Admin: 06/13/18 17:09 Dose: Not Given Enoxaparin Sodium (Lovenox) 40 mg SC DAILY [facility]; Protocol Hydromorphone HCl (Dilaudid) 0.5 mg IVP Q4 PRN PRN Reason: Pain, moderate (4-7) Last Admin: 06/14/18 03:05 Dose: 0.5 mg Ampicillin Sodium/Sulbactam (Sodium 3 gm/ Sodium Chloride) 100 mls @ 100 mls/hr IVPB Q8H [facility]; Protocol Last Admin: 06/14/18 06:00 Dose: 100 mls/hr Meropenem 1 gm/ Sodium (Chloride) 100 mls @ 100 mls/hr IVPB Q8@0400,1200,2000 [facility]; Protocol Last Admin: 06/14/18 03:11 Dose: 100 mls/hr Metronidazole (Flagyl 500mg/100ml Ns) 100 mls @ 100 mls/hr IVPB Q8H [facility]; Protocol Last Admin: 06/14/18 05:51 Dose: 100 mls/hr Potassium Chloride/Dextrose/Sod Cl (Potassium Chl 20 Meq In D5-1/2ns) 1,000 mls @ 125 mls/hr IV .Q8H [facility] Stop: 06/15/18 07:26 Ketorolac Tromethamine (Toradol) 30 mg IVP Q6H [facility] Stop: 06/15/18 18:16 Last Admin: 06/14/18 05:52 Dose: 30 mg Ondansetron HCl (Zofran Inj) 4 mg IVP Q6H PRN PRN Reason: Nausea/Vomiting Last Admin: 06/13/18 19:27 Dose: 4 mg Pantoprazole Sodium (Protonix Inj) 40 mg IVP DAILY [facility] Last Admin: 06/13/18 09:01 Dose: 40 mg Simethicone (Mylicon Chew Tab) 80 mg PO TID PRN PRN Reason: Flatulence Last Admin: 06/06/18 16:43 Dose: 80 mg - Labs Labs: 06/14/18 05:40 06/14/18 05:40 PT 12.5 Seconds (9.8-13.1) 06/07/18 11:34 INR 1.1 06/07/18 11:34 APTT 31.2 Seconds (25.6-37.1) 06/07/18 11:34 - Constitutional Appears: Well, No Acute Distress - Head Exam Head Exam: ATRAUMATIC, NORMOCEPHALIC - Eye Exam Eye Exam: Normal appearance - ENT Exam ENT Exam: Mucous Membranes Dry - Respiratory Exam Respiratory Exam: NORMAL BREATHING PATTERN - Cardiovascular Exam Cardiovascular Exam: RRR - GI/Abdominal Exam GI & Abdominal Exam: Soft, Tenderness (around midline incision; hossein in place C/D/I. b/l priyanka drains with minimal output. Ostomy pink/patent). absent: Guarding, Rebound - Back Exam Back Exam: absent: CVA tenderness (L) - Neurological Exam Neurological Exam: Alert, Awake, Oriented x3 - Skin Skin Exam: Dry, Warm Assessment and Plan - Assessment and Plan (Free Text) Assessment: 53F s/p robotic culdoplasty with cecal perforation s/p Ex-lap with repair of perforation & diverting loop ileostomy; POD#7 Plan: - cont current management - Keep NPO with NGT suction - IVF and IV ABX - monitor for bowel function - encourage ambulation & Incentive spirometry - d/w Malcolm Jamison
--- NOTE | 2018-06-14 10:00 | CP.PCM.PN ---
Subjective - Date & Time of Evaluation Date of Evaluation: 06/13/18 Time of Evaluation: 12:30 - Subjective Subjective: patient doing well ambulating pain well-controlled Objective - Vital Signs/Intake and Output Vital Signs (last 24 hours): Temp Pulse Resp BP Pulse Ox 98.0 F 80 19 167/82 H 96 06/14/18 08:27 06/14/18 08:27 06/14/18 08:27 06/14/18 08:27 06/14/18 08:27 Intake and Output: 06/14/18 06/14/18 06:59 18:59 Output Total 1505 Balance -1505 - Medications Medications: Current Medications Al Hydrox/Mg Hydrox/Simethicone (Maalox Plus 30 Ml) 30 ml PO Q4 PRN PRN Reason: Indigestion / Heartburn Last Admin: 06/05/18 21:28 Dose: 30 ml Docusate Sodium (Colace) 100 mg PO BID [facility] Last Admin: 06/13/18 17:09 Dose: Not Given Enoxaparin Sodium (Lovenox) 40 mg SC DAILY [facility]; Protocol Ampicillin Sodium/Sulbactam (Sodium 3 gm/ Sodium Chloride) 100 mls @ 100 mls/hr IVPB Q8H [facility]; Protocol Last Admin: 06/14/18 06:00 Dose: 100 mls/hr Meropenem 1 gm/ Sodium (Chloride) 100 mls @ 100 mls/hr IVPB Q8@0400,1200,2000 [facility]; Protocol Last Admin: 06/14/18 03:11 Dose: 100 mls/hr Metronidazole (Flagyl 500mg/100ml Ns) 100 mls @ 100 mls/hr IVPB Q8H [facility]; Protocol Last Admin: 06/14/18 05:51 Dose: 100 mls/hr Potassium Chloride/Dextrose/Sod Cl (Potassium Chl 20 Meq In D5-1/2ns) 1,000 mls @ 125 mls/hr IV .Q8H [facility] Stop: 06/15/18 07:26 Ketorolac Tromethamine (Toradol) 30 mg IVP Q6H [facility] Stop: 06/15/18 18:16 Last Admin: 06/14/18 05:52 Dose: 30 mg Ondansetron HCl (Zofran Inj) 4 mg IVP Q6H PRN PRN Reason: Nausea/Vomiting Last Admin: 06/13/18 19:27 Dose: 4 mg Pantoprazole Sodium (Protonix Inj) 40 mg IVP DAILY [facility] Last Admin: 06/13/18 09:01 Dose: 40 mg Simethicone (Mylicon Chew Tab) 80 mg PO TID PRN PRN Reason: Flatulence Last Admin: 06/06/18 16:43 Dose: 80 mg - Labs Labs: 06/14/18 05:40 06/14/18 05:40 PT 12.5 Seconds (9.8-13.1) 06/07/18 11:34 INR 1.1 06/07/18 11:34 APTT 31.2 Seconds (25.6-37.1) 06/07/18 11:34 Assessment and Plan - Assessment and Plan (Free Text) Assessment: patient doing well continue ambulation Awaiting output from ileostomy Plan of care discussed with patient, her son Josh and Cesilia sister continue antibiotics
[2018-06-14 14:11] VITALS: BMI 48.6
[2018-06-14] MEDS: Enoxaparin 40 mg Syringe SC SCH (15:07)
[2018-06-14] MEDS: Potassium Ch 20mEq in D5-1/2NS 1,000 ML IV SCH ×3 (17:27→23:30)
--- NOTE | 2018-06-14 18:42 | CP.PCM.PN ---
Subjective - Date & Time of Evaluation Date of Evaluation: 06/14/18 Time of Evaluation: 18:33 - Subjective Subjective: I D NOTE wbcis 13.7 but platelets are 619,we should consider to have f/u ct scan in view of increasing platelet count Objective - Vital Signs/Intake and Output Vital Signs (last 24 hours): Temp Pulse Resp BP Pulse Ox 98.8 F 84 20 157/75 H 98 06/14/18 16:57 06/14/18 16:57 06/14/18 16:57 06/14/18 16:57 06/14/18 16:57 Intake and Output: 06/14/18 06/14/18 06:59 18:59 Output Total 1505 191 Balance -1505 -191 - Medications Medications: Current Medications Al Hydrox/Mg Hydrox/Simethicone (Maalox Plus 30 Ml) 30 ml PO Q4 PRN PRN Reason: Indigestion / Heartburn Last Admin: 06/05/18 21:28 Dose: 30 ml Docusate Sodium (Colace) 100 mg PO BID [facility] Last Admin: 06/14/18 16:12 Dose: Not Given Enoxaparin Sodium (Lovenox) 40 mg SC DAILY [facility]; Protocol Last Admin: 06/14/18 15:07 Dose: Not Given Ampicillin Sodium/Sulbactam (Sodium 3 gm/ Sodium Chloride) 100 mls @ 100 mls/hr IVPB Q8H [facility]; Protocol Last Admin: 06/14/18 15:08 Dose: Not Given Meropenem 1 gm/ Sodium (Chloride) 100 mls @ 100 mls/hr IVPB Q8@0400,1200,2000 [facility]; Protocol Last Admin: 06/14/18 15:07 Dose: Not Given Metronidazole (Flagyl 500mg/100ml Ns) 100 mls @ 100 mls/hr IVPB Q8H [facility]; Protoc ol Last Admin: 06/14/18 15:06 Dose: Not Given Potassium Chloride/Dextrose/Sod Cl (Potassium Chl 20 Meq In D5-1/2ns) 1,000 mls @ 125 mls/hr IV .Q8H [facility] Stop: 06/15/18 07:26 Last Admin: 06/14/18 17:28 Dose: Not Given Ketorolac Tromethamine (Toradol) 30 mg IVP Q6H [facility] Stop: 06/15/18 18:16 Last Admin: 06/14/18 17:21 Dose: 30 mg Ondansetron HCl (Zofran Inj) 4 mg IVP Q6H PRN PRN Reason: Nausea/Vomiting Last Admin: 06/13/18 19:27 Dose: 4 mg Pantoprazole Sodium (Protonix Inj) 40 mg IVP DAILY [facility] Last Admin: 06/14/18 15:07 Dose: Not Given Simethicone (Mylicon Chew Tab) 80 mg PO TID PRN PRN Reason: Flatulence Last Admin: 06/06/18 16:43 Dose: 80 mg - Labs Labs: 06/14/18 05:40 06/14/18 05:40 PT 12.5 Seconds (9.8-13.1) 06/07/18 11:34 INR 1.1 06/07/18 11:34 APTT 31.2 Seconds (25.6-37.1) 06/07/18 11:34
[2018-06-15] MEDS: Meropenem 1 GM in Sodium Chloride 0.9% 100 ML IVPB SCH ×3 (04:03→20:54)
[2018-06-15] MEDS: metroNIDAZOLE 500mg/100ml NS 100 ML IVPB SCH ×3 (05:24→21:58)
[2018-06-15 06:29] LABS: BASO # 0.1 K/uL (0.0-0.2); BASO % 0.7 % (0.0-2.0); EOS # 0.1 K/uL (0.0-0.7); EOS % 0.9 % (0.0-4.0); HEMOGLOBIN 8.3 g/dL (12.0-16.0); LYMPH # 1.7 K/uL (1.0-4.3); LYMPH % 13.3 % (20.0-40.0); MEAN CELL VOLUME 90.5 fl (81.0-99.0); MEAN CORPUSCULAR HEMOGLOBIN 29.5 pg (27.0-31.0); MEAN CORPUSCULAR HGB CONC 32.6 g/dL (33.0-37.0); MEAN PLATELET VOLUME 6.2 fl (7.2-11.7); MONO # 0.7 K/uL (0.0-0.8); MONO % 5.5 % (0.0-10.0); NEUT % 79.6 % (50.0-75.0); NRBC % 0.1 % (0.0-0.0); RBC 2.83 Mil/uL (3.80-5.20); RED CELL DISTRIBUTION WIDTH 14.2 % (11.5-14.5); WHITE BLOOD COUNT 12.6 K/uL (4.8-10.8)
[2018-06-15 07:05] LABS: ALB/GLOB RATIO 0.7 (1.0-2.1); ALBUMIN 2.7 g/dL (3.5-5.0); ALT/SGPT 30 U/L (9-52); AST/SGOT 72 U/L (14-36); BLOOD UREA NITROGEN 3 mg/dl (7-17); CALCIUM 8.2 mg/dL (8.4-10.2); GFR NON-AFRICAN AMERICAN > 60
--- NOTE | 2018-06-15 10:54 | CP.PCM.PN ---
Subjective - Date & Time of Evaluation Date of Evaluation: 06/15/18 Time of Evaluation: 10:20 - Subjective Subjective: General Surgery Pt seen and examined. No acute overnight events. Feeling well as yesterday. Pain well controlled with meds. Feels "rumbling" and movement of her bowels in the RLQ, and had 2 BM from the rectum. Denies any gas/stool in the ostomy. Ambulating. Scheduled for PICC placement today. Denies N/V, F/C. Objective - Vital Signs/Intake and Output Vital Signs (last 24 hours): Temp Pulse Resp BP Pulse Ox 98.5 F 80 19 146/71 97 06/15/18 08:15 06/15/18 08:15 06/15/18 08:15 06/15/18 08:15 06/15/18 08:15 Intake and Output: 06/15/18 06/15/18 06:59 18:59 Intake Total 1500 Output Total 255 Balance 1245 - Medications Medications: Current Medications Al Hydrox/Mg Hydrox/Simethicone (Maalox Plus 30 Ml) 30 ml PO Q4 PRN PRN Reason: Indigestion / Heartburn Last Admin: 06/05/18 21:28 Dose: 30 ml Docusate Sodium (Colace) 100 mg PO BID [facility] Last Admin: 06/15/18 08:55 Dose: Not Given Enoxaparin Sodium (Lovenox) 40 mg SC DAILY [facility]; Protocol Last Admin: 06/14/18 15:07 Dose: Not Given Ampicillin Sodium/Sulbactam (Sodium 3 gm/ Sodium Chloride) 100 mls @ 100 mls/hr IVPB Q8H [facility]; Protocol Last Admin: 06/15/18 06:33 Dose: 100 mls/hr Meropenem 1 gm/ Sodium (Chloride) 100 mls @ 100 mls/hr IVPB Q8@0400,1200,2000 [facility]; Protocol Last Admin: 06/15/18 04:03 Dose: 100 mls/hr Metronidazole (Flagyl 500mg/100ml Ns) 100 mls @ 100 mls/hr IVPB Q8H [facility]; Protocol Last Admin: 06/15/18 05:24 Dose: 100 mls/hr Ketorolac Tromethamine (Toradol) 30 mg IVP Q6H [facility] Stop: 06/15/18 18:16 Last Admin: 06/15/18 06:26 Dose: 30 mg Ondansetron HCl (Zofran Inj) 4 mg IVP Q6H PRN PRN Reason: Nausea/Vomiting Last Admin: 06/13/18 19:27 Dose: 4 mg Pantoprazole Sodium (Protonix Inj) 40 mg IVP DAILY [facility] Last Admin: 06/15/18 08:59 Dose: 40 mg Simethicone (Mylicon Chew Tab) 80 mg PO TID PRN PRN Reason: Flatulence Last Admin: 06/06/18 16:43 Dose: 80 mg - Labs Labs: 06/15/18 05:55 06/15/18 05:55 PT 12.5 Seconds (9.8-13.1) 06/07/18 11:34 INR 1.1 06/07/18 11:34 APTT 31.2 Seconds (25.6-37.1) 06/07/18 11:34 - Constitutional Appears: Non-toxic, No Acute Distress - Head Exam Head Exam: ATRAUMATIC, NORMOCEPHALIC - Eye Exam Eye Exam: EOMI. absent: Scleral icterus - Respiratory Exam Respiratory Exam: NORMAL BREATHING PATTERN. absent: Respiratory Distress - Cardiovascular Exam Cardiovascular Exam: RRR, +S1, +S2 - GI/Abdominal Exam GI & Abdominal Exam: Soft, Tenderness (mild at incision). absent: Distended, Firm, Guarding, Rigid, Rebound Additional comments: Ostomy pink, viable, with bowel sweat and mucus in bag. B/L drains in place with scant output. Dressing D/I with some staining - Extremities Exam Extremities Exam: Pedal Edema (mild). absent: Calf Tenderness - Neurological Exam Neurological Exam: Alert, Awake, Oriented x3 - Skin Skin Exam: Dry, Warm Assessment and Plan - Assessment and Plan (Free Text) Assessment: 53F s/p robotic culdoplasty with cecal perforation s/p Ex-lap with repair of perforation & diverting loop ileostomy; POD#8 Plan: - PICC today - CT with PO contrast through the NGT today - NPO with NGT intermittent suction until contrast given, then clamp - IVF and IV ABX - monitor for bowel function - encourage ambulation & Incentive spirometry D/W Dr. Malcolm May PGY4
--- NOTE | 2018-06-15 11:38 | PCM.OP ---
Operative Report - Operative Report Date of Surgery/Procedure: 06/07/18 Time of Surgery/Procedure: 14:00 Surgeon: Dr. Mark Fowler Damage Appraiser: Dr. Sergei Cain, Dr. Jamison Anesthesia/Sedation: general/Dr. Melchor Pre-Operative Diagnosis: perforated viscus Post-Operative Diagnosis: perforated right colon with intraabdominal sepsis Indication for Surgery: as above Operative Findings: as above Procedure/Operation Description: 1-Repair colon. 2-ileostomy. 3-drain intraabdominal abscess. 4-diagnostic laparoscopy. Brief History: This 53 year old woman was previously operated on 06/03/[address] Cain and she persisted with pain postoperatively. Upon examination today she demostrated an acute abdomen and she undergoes emergency surgery. Description of the procedure: The patient was taken to the operating room and after induction of endotracheal anesthesia she was prepped and draped in the usual sterile manner. An infraumbilica incision was made and a Robertson trocar was palced with ease. Under videoscopy, due to the extensive adhesions and dilated bowel the pelvis could not be visualized. A generous midline incision was made with a 10 kim and the peritneum was entered with electrocautery. Multiple loops of dilated small bowel werre retracted and murky fluid emanated from the pelvis. The right colon was run and a small 0.5 cm rent was viualized. This was repaired in two layers with 3-0 vicryl. The abdomen was aspirated and the abdomen gentrly irrigated. Fluyid was sent for cultures. The distal ileum was brought into the wound adn through a separate circular incision the ileum was brought to the skin after securing it to the fascia with multiple interrupted 3-0 vicryl sutures. Hemostasis was deemed adeqaute and all coounts were correct. The abdomen was then closed with 0PDS and hossein for the skin. The ileostomy was created in a Alicia fashion and an ostomy appliance and a clean dressoing were placed. The patinet was awakened, extubated and brought to the PACU instable condition. Estimated Blood Loss: 200 cc Blood Replaced: 2500 cc crystalloids Drains: Roger 19F times two Complications: none Specimen: abdominal abscess fluid Discharge & Condition: stable
[2018-06-15] MEDS ORDERED: Iohexol 240 (50 ml) PO ONE (12:26)
[2018-06-15] MEDS ORDERED: Lidocaine 1% 5ml Abboject ONE (12:31)
--- NOTE | 2018-06-15 12:45 | PCM.SURG1 ---
Surgeon's Initial Post Op Note - Surgeon's Notes Surgeon: Madhav Shahid MD [employer] Supervisor: NONE Type of Anesthesia: Local Pre-Operative Diagnosis: Poor venous access Operative Findings: US showed a patent right basilic vein. Post-Operative Diagnosis: Poor venous access Operation Performed: Double lumen picc placement right arm, 41 cm. Tip is in the SVC. Specimen/Specimens Removed: NONE Estimated Blood Loss: EBL {In ML}: 2 Blood Products Given: N/A Drains Used: No Drains Post-Op Condition: Fair Date of Surgery/Procedure: 06/15/18 Time of Surgery/Procedure: 12:40
--- NOTE | 2018-06-15 13:16 | VASCULAR ---
PROCEDURE: Date of procedure: 06/15/2018 Procedure: 1. Placement of a right arm PICC with ultrasound and fluoroscopic guidance, CPT 33267 2. PICC tip confirmation with spot radiograph and is in the superior vena cava Medications: 1 percent lidocaine Total Fluoro time: 5.6 Seconds Radiation: 1.23 mGy EBL: 2 cc HISTORY: Infection requiring long-term IV antibiotics TECHNIQUE: Following informed consent and procedure time-out, the patient was placed supine on the interventional table and the right arm prepped and draped in the usual sterile fashion. Ultrasound showed a patent and compressible right basilic vein. After the skin was anesthetized with lidocaine, the basilic vein was accessed with micro micropuncture technique using ultrasound guidance. A guidewire was then advanced under fluoroscopic guidance into the superior vena cava. An image documenting ultrasound guidance for vascular access was permanently saved. The length of the double-lumen 5 [place] PICC was trimmed to 41 centimeters and advanced through a peel-away sheath. The PICC was position with tip of PICC confirm a spot radiograph the superior vena cava. The PICC was secured to the patient's skin. The PICC was flushed. A biopatch and sterile dressing was applied. IMPRESSION: Placement of a double-lumen 5 [place] PICC trimmed to 41 centimeters via right basilic vein. The tip of the PICC is confirmed with spot radiograph and is in the superior vena cava.
[2018-06-15] MEDS ORDERED: MULTIVITAMIN IV ONE (15:30)
[2018-06-15] MEDS ORDERED: [UNRECOGNIZED DRUG - OTHER] IV ONE (15:30)
[2018-06-15] MEDS ORDERED: MANGANESE IV ONE (15:30)
[2018-06-15] MEDS ORDERED: ZINC IV ONE (15:30)
[2018-06-15] MEDS ORDERED: CHROMIUM IV ONE (15:30)
[2018-06-15] MEDS ORDERED: COPPER IV ONE (15:30)
[2018-06-15] MEDS: Enoxaparin 40 mg Syringe SC SCH (16:49)
[2018-06-15] MEDS ORDERED: Iodixanol 320 MG/ML 100 ML BOTTLE IV ONE (19:15)
[2018-06-15] MEDS ORDERED: Sodium Chloride 0.9% 50 ML IV ONE (19:16)
[2018-06-16] MEDS: Potassium Ch 20mEq in D5-1/2NS 1,000 ML IV SCH ×2 (01:32→03:35)
[2018-06-16] MEDS: Meropenem 1 GM in Sodium Chloride 0.9% 100 ML IVPB SCH ×3 (04:10→20:26)
[2018-06-16] MEDS: metroNIDAZOLE 500mg/100ml NS 100 ML IVPB SCH ×3 (05:09→21:40)
[2018-06-16 06:41] LABS: BASO # 0.1 K/uL (0.0-0.2); EOS # 0.2 K/uL (0.0-0.7); EOS % 1.4 % (0.0-4.0); HEMOGLOBIN 8.2 g/dL (12.0-16.0); LYMPH # 1.4 K/uL (1.0-4.3); LYMPH % 12.8 % (20.0-40.0); MEAN CELL VOLUME 91.9 fl (81.0-99.0); MEAN CORPUSCULAR HEMOGLOBIN 29.9 pg (27.0-31.0); MEAN CORPUSCULAR HGB CONC 32.6 g/dL (33.0-37.0); MEAN PLATELET VOLUME 6.1 fl (7.2-11.7); MONO # 0.8 K/uL (0.0-0.8); MONO % 7.1 % (0.0-10.0); NEUT # 8.8 K/uL (1.8-7.0); NEUT % 77.7 % (50.0-75.0); RBC 2.75 Mil/uL (3.80-5.20); RED CELL DISTRIBUTION WIDTH 14.6 % (11.5-14.5); WHITE BLOOD COUNT 11.3 K/uL (4.8-10.8)
[2018-06-16 06:50] LABS: ALB/GLOB RATIO 0.7 (1.0-2.1); ALBUMIN 2.9 g/dL (3.5-5.0); ALT/SGPT 23 U/L (9-52); AST/SGOT 29 U/L (14-36); BLOOD UREA NITROGEN 5 mg/dl (7-17); CALCIUM 8.3 mg/dL (8.4-10.2); GFR NON-AFRICAN AMERICAN > 60
--- NOTE | 2018-06-16 07:42 | CP.PCM.PN ---
Subjective - Date & Time of Evaluation Date of Evaluation: 06/16/18 Time of Evaluation: 08:06 - Subjective Subjective: General Surgery Note for Dr. Fowler Patient seen and examined at bedside. No acute event overnight. She reports pain is controlled with medication. Denies any output from ileostomy but states she had a BM from below but nursing could not confirm. NGT had 250 cc/12hrs. There was no output from either priyanka drain. Patient had PICC line inserted yesterday and is receiving TPN. Denies fever/chills or nausea/vomiting. Objective - Vital Signs/Intake and Output Vital Signs (last 24 hours): Temp Pulse Resp BP Pulse Ox 98.7 F 88 18 176/82 H 98 06/15/18 23:57 06/15/18 23:57 06/15/18 23:57 06/15/18 23:57 06/15/18 23:57 Intake and Output: 06/16/18 06/16/18 06:59 18:59 Intake Total 1846 Output Total 290 Balance 1556 - Medications Medications: Current Medications Al Hydrox/Mg Hydrox/Simethicone (Maalox Plus 30 Ml) 30 ml PO Q4 PRN PRN Reason: Indigestion / Heartburn Last Admin: 06/05/18 21:28 Dose: 30 ml Docusate Sodium (Colace) 100 mg PO BID [facility] Last Admin: 06/15/18 16:48 Dose: Not Given Enoxaparin Sodium (Lovenox) 40 mg SC DAILY [facility]; Protocol Last Admin: 06/15/18 16:49 Dose: 40 mg Ampicillin Sodium/Sulbactam (Sodium 3 gm/ Sodium Chloride) 100 mls @ 100 mls/hr IVPB Q8H [facility]; Protocol Last Admin: 06/16/18 06:34 Dose: 100 mls/hr Meropenem 1 gm/ Sodium (Chloride) 100 mls @ 100 mls/hr IVPB Q8@0400,1200,2000 [facility]; Protocol Last Admin: 06/16/18 04:10 Dose: 100 mls/hr Metronidazole (Flagyl 500mg/100ml Ns) 100 mls @ 100 mls/hr IVPB Q8H [facility]; Protocol Last Admin: 06/16/18 05:09 Dose: 100 mls/hr Potassium Chloride/Dextrose/Sod Cl (Potassium Chl 20 Meq In D5-1/2ns) 1,000 mls @ 125 mls/hr IV .Q8H [facility] Stop: 06/16/18 11:05 Last Admin: 06/16/18 03:35 Dose: Not Given Insulin Human Regular 10 units / Heparin Sodium (Porcine) 1, 000 units/ Amino Acids/Electrolytes/Dextrose 1,001.1 mls @ 83 mls/hr IV .Q12H4M ONE Stop: 06/16/18 15:46 Ketorolac Tromethamine (Toradol) 30 mg IVP Q6 PRN PRN Reason: Pain, moderate (4-7) Last Admin: 06/16/18 01:18 Dose: 30 mg Ondansetron HCl (Zofran Inj) 4 mg IVP Q6H PRN PRN Reason: Nausea/Vomiting Last Admin: 06/16/18 01:14 Dose: 4 mg Pantoprazole Sodium (Protonix Inj) 40 mg IVP DAILY [facility] Last Admin: 06/15/18 08:59 Dose: 40 mg Simethicone (Mylicon Chew Tab) 80 mg PO TID PRN PRN Reason: Flatulence Last Admin: 06/06/18 16:43 Dose: 80 mg - Labs Labs: 06/16/18 06:20 06/16/18 06:20 PT 12.5 Seconds (9.8-13.1) 06/07/18 11:34 INR 1.1 06/07/18 11:34 APTT 31.2 Seconds (25.6-37.1) 06/07/18 11:34 - Additional Findings Additional findings: - Constitutional Appears: Non-toxic, No Acute Distress - Head Exam Head Exam: ATRAUMATIC, NORMOCEPHALIC - Eye Exam Eye Exam: EOMI. absent: Scleral icterus - Respiratory Exam Respiratory Exam: NORMAL BREATHING PATTERN. absent: Respiratory Distress - Cardiovascular Exam Cardiovascular Exam: RRR, +S1, +S2 - GI/Abdominal Exam GI & Abdominal Exam: Soft, Tenderness (mild at incision). absent: Distended, Firm, Guarding, Rigid, Rebound Additional comments: ileostomy pink, viable, with bowel sweat and mucus in bag. priyanka drains in place with scant output. Dressing changed - Extremities Exam Extremities Exam: Pedal Edema (mild). absent: Calf Tenderness - Neurological Exam Neurological Exam: Alert, Awake, Oriented x3 - Skin Skin Exam: Dry, Warm Assessment and Plan - Assessment and Plan (Free Text) Assessment: 53F s/p robotic culdoplasty with cecal perforation s/p Ex-lap with repair of perforation & diverting loop ileostomy; POD#9 Plan: - f/u CT abd/pelvis official report - NPO with NGT intermittent suction - IV ABX - TPN - Monitor for bowel function - Encourage ambulation & Incentive spirometry - Further recommendations as per Dr. Malcolm Ndiaye PGY2
[2018-06-16] MEDS: Enoxaparin 40 mg Syringe SC SCH (08:59)
--- NOTE | 2018-06-16 13:23 | CT ---
Date of service: 06/15/2018 PROCEDURE: CT Abdomen and Pelvis with contrast HISTORY: Obstruction COMPARISON: CT scan of the abdomen and pelvis dated 06/07/2018. TECHNIQUE: Contrast dose: 100 mL Omnipaque 300 Radiation dose: Total exam DLP = 1505.6 mGy-cm. This CT exam was performed using one or more of the following dose reduction techniques: Automated exposure control, adjustment of the mA and/or kV according to patient size, and/or use of iterative reconstruction technique. FINDINGS: LOWER THORAX: Cardiomegaly. Coronary arterial and valvular calcifications. Partially imaged enteric tube terminating in the stomach. Small right lower lobe consolidation. Trace right pleural effusion. LIVER: Unremarkable. No gross lesion or ductal dilatation. GALLBLADDER AND BILE DUCTS: Unremarkable. PANCREAS: Unremarkable. No gross lesion or ductal dilatation. SPLEEN: Unremarkable. ADRENALS: Unremarkable. No mass. KIDNEYS AND URETERS: Unremarkable. No hydronephrosis. No solid mass. VASCULATURE: Unremarkable. No aortic aneurysm. BOWEL: Interval creation of left lower quadrant ileostomy. Persistent small bowel obstruction with transition in the left lower quadrant in the region of the ostomy. New severe mural thickening of distal ileal loops in the mid abdomen deep to the incision. Tiny foci of air, either intraluminal or in the intestinal wall (series 3 images 88-98). APPENDIX: No findings to suggest acute appendicitis. PERITONEUM: Midline abdominal pelvic surgical scar with skin hossein. Bilateral lower quadrant surgical drains, terminating in the central pelvis. 4.0 x 3.9 cm fluid collection in the left lower quadrant abdominal wall soft tissues adjacent to the exiting ostomy. Small amount of abdominal free fluid. Body wall edema. No free air. LYMPH NODES: Unremarkable. No enlarged lymph nodes. BLADDER: Unremarkable. REPRODUCTIVE: Unremarkable. BONES: No acute fracture. OTHER FINDINGS: None. IMPRESSION: Interval creation of left lower quadrant ileostomy. Persistent small bowel obstruction with transition in the left lower quadrant in the region of the ostomy. New severe mural thickening of distal ileal loops in the mid abdomen deep to the incision. Bowel compromise cannot be excluded. Tiny foci of air, either intraluminal or within the intestinal wall. 4.0 x 3.9 cm fluid collection in the left lower quadrant abdominal wall soft tissues adjacent to the exiting ostomy. Small right lower lobe consolidation with trace effusion. These findings were not conveyed on the preliminary interpretation by tele radiology. Dated findings conveyed to JOSE Jacome by Dr. Wilder at 1:15 p.m. on 06/16/2018.
[2018-06-17] MEDS: Meropenem 1 GM in Sodium Chloride 0.9% 100 ML IVPB SCH ×4 (03:30→23:37)
[2018-06-17] MEDS: metroNIDAZOLE 500mg/100ml NS 100 ML IVPB SCH ×3 (04:49→21:00)
[2018-06-17 06:42] LABS: HEMOGLOBIN 8.3 g/dL (12.0-16.0); MEAN CELL VOLUME 92.1 fl (81.0-99.0); MEAN CORPUSCULAR HGB CONC 32.5 g/dL (33.0-37.0); RBC 2.75 Mil/uL (3.80-5.20); RED CELL DISTRIBUTION WIDTH 14.3 % (11.5-14.5); WHITE BLOOD COUNT 11.5 K/uL (4.8-10.8)
[2018-06-17 07:07] LABS: ALB/GLOB RATIO 0.8 (1.0-2.1); ALT/SGPT 23 U/L (9-52); AST/SGOT 82 U/L (14-36); BLOOD UREA NITROGEN 8 mg/dl (7-17); CALCIUM 8.4 mg/dL (8.4-10.2); GFR NON-AFRICAN AMERICAN > 60
[2018-06-17] MEDS: Enoxaparin 40 mg Syringe SC SCH (08:42)
--- NOTE | 2018-06-17 09:36 | CP.PCM.PN ---
Subjective - Date & Time of Evaluation Date of Evaluation: 06/17/18 Time of Evaluation: 07:00 - Subjective Subjective: General Surgery Patient seen and examined. No acute event overnight. She reports pain is controlled with medication. No stool output from ileostomy. NGT had 850cc/24hrs. Minimal output from both priyanka drain. Receiving TPN. Denies fever/chills or nausea/vomiting. Objective - Vital Signs/Intake and Output Vital Signs (last 24 hours): Temp Pulse Resp BP Pulse Ox 98.3 F 77 20 163/85 H 100 06/17/18 08:32 06/17/18 08:32 06/17/18 08:32 06/17/18 08:32 06/17/18 08:32 Intake and Output: 06/17/18 06/17/18 06:59 18:59 Intake Total 1850 Output Total 1407 Balance 443 - Medications Medications: Current Medications Docusate Sodium (Colace) 100 mg PO BID REPLACED BY [facility] Last Admin: 06/16/18 17:05 Dose: Not Given Enoxaparin Sodium (Lovenox) 40 mg SC DAILY REPLACED BY [facility]; Protocol Last Admin: 06/17/18 08:42 Dose: 40 mg Ampicillin Sodium/Sulbactam (Sodium 3 gm/ Sodium Chloride) 100 mls @ 100 mls/hr IVPB Q8H REPLACED BY [facility]; Protocol Last Admin: 06/17/18 06:08 Dose: 100 mls/hr Meropenem 1 gm/ Sodium (Chloride) 100 mls @ 100 mls/hr IVPB Q8@0400,1200,2000 [facility]; Protocol Last Admin: 06/17/18 03:30 Dose: 100 mls/hr Metronidazole (Flagyl 500mg/100ml Ns) 100 mls @ 100 mls/hr IVPB Q8H [facility]; Protocol Last Admin: 06/17/18 04:49 Dose: 100 mls/hr Multivitamins/Vitamin C 10 ml/Chromium/Copper/Manganese/Zinc 3 ml/ Amino Acids/Electrolytes/Dextrose 1,013 mls @ 83 mls/hr IV .[id number] REPLACED BY [facility] Last Admin: 06/16/18 22:20 Dose: 83 mls/hr Amino Acids/Electrolytes/Dextrose (Clinimix 5/20 % "E" (1000 Ml)) 1,000 mls @ 83 mls/hr IV .Q12H3M REPLACED BY [facility] Ketorolac Tromethamine (Toradol) 30 mg IVP Q6 PRN PRN Reason: Pain, moderate (4-7) Last Admin: 06/17/18 06:02 Dose: 30 mg Metoclopramide HCl (Reglan) 10 mg IVP Q6 REPLACED BY [facility] Last Admin: 06/17/18 04:55 Dose: 10 mg Ondansetron HCl (Zofran Inj) 4 mg IVP Q6H PRN PRN Reason: Nausea/Vomiting Last Admin: 06/16/18 08:29 Dose: 4 mg Pantoprazole Sodium (Protonix Inj) 40 mg IVP DAILY REPLACED BY [facility] Last Admin: 06/17/18 08:42 Dose: 40 mg - Labs Labs: 06/17/18 05:50 06/17/18 05:50 PT 12.5 Seconds (9.8-13.1) 06/07/18 11:34 INR 1.1 06/07/18 11:34 APTT 31.2 Seconds (25.6-37.1) 06/07/18 11:34 - Constitutional Appears: Non-toxic, No Acute Distress - Head Exam Head Exam: ATRAUMATIC, NORMOCEPHALIC - Eye Exam Eye Exam: EOMI. absent: Scleral icterus - ENT Exam Additional comments: NGT in place - Respiratory Exam Respiratory Exam: NORMAL BREATHING PATTERN. absent: Respiratory Distress - Cardiovascular Exam Cardiovascular Exam: RRR, +S1, +S2 - GI/Abdominal Exam GI & Abdominal Exam: Distended (mild), Soft, Tenderness (mild around incision). absent: Firm, Guarding, Rigid, Rebound Additional comments: Ostomy [place], viable with bowel sweat in bag. Dressing C/D/I Drains in place - Extremities Exam Extremities Exam: absent: Calf Tenderness, Tenderness - Neurological Exam Neurological Exam: Alert, Awake, Oriented x3 - Skin Skin Exam: Dry, Warm Assessment and Plan - Assessment and Plan (Free Text) Assessment: 53F s/p robotic culdoplasty with cecal perforation s/p Ex-lap with repair of perforation & diverting loop ileostomy; POD#10 Plan: - Flat and upright XR to monitor contrast progression - NPO with NGT intermittent suction - IV ABX - Continue TPN - Monitor for bowel function - Encourage ambulation & Incentive spirometry - D/W Dr. Malcolm May PGY4
--- NOTE | 2018-06-17 11:02 | RAD ---
Date of service: 06/17/2018 HISTORY: Ileus follow up contrast movement COMPARISON: No prior. FINDINGS: BOWEL: Numerous dilated small bowel loops. Oral contrast is seen in small bowel loops in the lower abdomen and pelvis. There is no identifiable oral contrast from the CT examination of 06/15/2018 identifiable within loops of colon. Findings consistent with mechanical small bowel obstruction. Nasogastric tube seen in left upper quadrant. Two surgical drains seen in the pelvis. BONES: Normal. OTHER FINDINGS: None. IMPRESSION: Findings consistent with mechanical small bowel obstruction.
[2018-06-18] MEDS: metroNIDAZOLE 500mg/100ml NS 100 ML IVPB SCH ×3 (00:58→17:08)
[2018-06-18] MEDS: Meropenem 1 GM in Sodium Chloride 0.9% 100 ML IVPB SCH ×2 (08:03→16:10)
--- NOTE | 2018-06-18 08:58 | CP.PCM.PN ---
Subjective - Date & Time of Evaluation Date of Evaluation: 06/18/18 Time of Evaluation: 07:30 - Subjective Subjective: General Surgery Note for Dr. Fowler Patient seen and examined at bedside. No acute event overnight. Pain is controlled with medication. Stool output is coming out of ileostomy via chest tube. NGT had 500cc of bilious output over 24hrs. Patient is still NPO and receiving TPN. Denies fever/chills or nausea/vomiting. Objective - Vital Signs/Intake and Output Vital Signs (last 24 hours): Temp Pulse Resp BP Pulse Ox 98.4 F 80 20 164/85 H 99 06/18/18 07:47 06/18/18 07:47 06/18/18 07:47 06/18/18 07:47 06/18/18 07:47 Intake and Output: 06/18/18 06/18/18 06:59 18:59 Intake Total 300 Output Total 420 Balance -120 - Medications Medications: Current Medications Aspirin (Aspirin Chewable) 81 mg PO DAILY [facility] Docusate Sodium (Colace) 100 mg PO BID [facility] Last Admin: 06/17/18 17:21 Dose: Not Given Enoxaparin Sodium (Lovenox) 40 mg SC DAILY [facility]; Protocol Last Admin: 06/17/18 08:42 Dose: 40 mg Multivitamins/Vitamin C 10 ml/Chromium/Copper/Manganese/Zinc 3 ml/ Amino Acids/Electrolytes/Dextrose 1,013 mls @ 83 mls/hr IV .[id number] ONE Stop: 06/18/18 15:12 Last Admin: 06/18/18 03:51 Dose: 83 mls/hr Amino Acids/Electrolytes/Dextrose (Clinimix 5/20 % "E" (1000 Ml)) 1,000 mls @ 83 mls/hr IV .Q12H3M [facility] Stop: 06/19/18 03:02 Metronidazole (Flagyl 500mg/100ml Ns) 100 mls @ 100 mls/hr IVPB Q8 [facility]; Protocol Ampicillin Sodium/Sulbactam (Sodium 3 gm/ Sodium Chloride) 100 mls @ 100 mls/hr IVPB Q8@0200,1000,1800 [facility]; Protocol Meropenem 1 gm/ Sodium (Chloride) 100 mls @ 100 mls/hr IVPB Q8@0000,0800,1600 [facility]; Protocol Ketorolac Tromethamine (Toradol) 30 mg IVP Q6 PRN PRN Reason: Pain, moderate (4-7) Last Admin: 06/18/18 03:54 Dose: 30 mg Metoclopramide HCl (Reglan) 10 mg IVP 0100,0700,1300,1900 [facility] Last Admin: 06/18/18 07:04 Dose: 10 mg Ondansetron HCl (Zofran Inj) 4 mg IVP Q6H PRN PRN Reason: Nausea/Vomiting Last Admin: 06/16/18 08:29 Dose: 4 mg Pantoprazole Sodium (Protonix Inj) 40 mg IVP DAILY [facility] Last Admin: 06/17/18 08:42 Dose: 40 mg - Labs Labs: 06/17/18 05:50 06/17/18 05:50 PT 12.5 Seconds (9.8-13.1) 06/07/18 11:34 INR 1.1 06/07/18 11:34 APTT 31.2 Seconds (25.6-37.1) 06/07/18 11:34 - Additional Findings Additional findings: - Constitutional Appears: Non-toxic, No Acute Distress - Head Exam Head Exam: ATRAUMATIC, NORMOCEPHALIC - Eye Exam Eye Exam: EOMI. absent: Scleral icterus - ENT Exam Additional comments: NGT in place - Respiratory Exam Respiratory Exam: NORMAL BREATHING PATTERN. absent: Respiratory Distress - Cardiovascular Exam Cardiovascular Exam: RRR, +S1, +S2 - GI/Abdominal Exam GI & Abdominal Exam: Soft, Tenderness (mild around incision). absent: Firm, Guarding, Rigid, Rebound Additional comments: ileostomy [place], viable with chest tube inside draining stool into walking bag Dressing changed Roger Drains in place - Extremities Exam Extremities Exam: absent: Calf Tenderness, Tenderness - Neurological Exam Neurological Exam: Alert, Awake, Oriented x3 - Skin Skin Exam: Dry, Warm Assessment and Plan - Assessment and Plan (Free Text) Assessment: 53F s/p robotic culdoplasty with cecal perforation s/p Ex-lap with repair of perforation & diverting loop ileostomy; POD#11 Plan: - NPO with NGT intermittent suction - IV ABX - Continue TPN - Monitor for bowel function - Encourage ambulation & Incentive spirometry - Replete electrolytes as needed - I's & O's - Monitor drainage from tube inside ileostomy -f/u daily labs - Further recommendations as per Dr. Malcolm Ndiaye PGY2
[2018-06-18 09:55] LABS: BASO # 0.1 K/uL (0.0-0.2); BASO % 0.6 % (0.0-2.0); EOS # 0.1 K/uL (0.0-0.7); EOS % 1.4 % (0.0-4.0); HEMOGLOBIN 7.8 g/dL (12.0-16.0); LYMPH # 1.3 K/uL (1.0-4.3); LYMPH % 12.7 % (20.0-40.0); MEAN CELL VOLUME 100.4 fl (81.0-99.0); MEAN CORPUSCULAR HEMOGLOBIN 29.8 pg (27.0-31.0); MEAN CORPUSCULAR HGB CONC 29.7 g/dL (33.0-37.0); MEAN PLATELET VOLUME 6.5 fl (7.2-11.7); MONO # 0.6 K/uL (0.0-0.8); MONO % 6.2 % (0.0-10.0); NEUT # 8.2 K/uL (1.8-7.0); NEUT % 79.1 % (50.0-75.0); RBC 2.61 Mil/uL (3.80-5.20); RED CELL DISTRIBUTION WIDTH 16.2 % (11.5-14.5); WHITE BLOOD COUNT 10.4 K/uL (4.8-10.8)
[2018-06-18] MEDS: Enoxaparin 40 mg Syringe SC SCH (10:03)
[2018-06-18 15:32] LABS: BLOOD UREA NITROGEN 9 mg/dl (7-17); CALCIUM 8.3 mg/dL (8.4-10.2); GFR NON-AFRICAN AMERICAN > 60
[2018-06-19] MEDS: Meropenem 1 GM in Sodium Chloride 0.9% 100 ML IVPB SCH ×3 (00:55→16:09)
[2018-06-19] MEDS: metroNIDAZOLE 500mg/100ml NS 100 ML IVPB SCH ×4 (03:41→20:07)
[2018-06-19 07:27] LABS: ALB/GLOB RATIO 0.7 (1.0-2.1); ALBUMIN 2.9 g/dL (3.5-5.0); ALT/SGPT 25 U/L (9-52); AST/SGOT 62 U/L (14-36); BLOOD UREA NITROGEN 11 mg/dl (7-17); GFR NON-AFRICAN AMERICAN > 60
[2018-06-19 07:36] LABS: BASO # 0.1 K/uL (0.0-0.2); BASO % 0.8 % (0.0-2.0); EOS # 0.2 K/uL (0.0-0.7); HEMOGLOBIN 8.2 g/dL (12.0-16.0); LYMPH # 1.5 K/uL (1.0-4.3); LYMPH % 15.7 % (20.0-40.0); MEAN CELL VOLUME 91.3 fl (81.0-99.0); MEAN CORPUSCULAR HEMOGLOBIN 30.6 pg (27.0-31.0); MEAN CORPUSCULAR HGB CONC 33.5 g/dL (33.0-37.0); MEAN PLATELET VOLUME 6.2 fl (7.2-11.7); MONO # 0.7 K/uL (0.0-0.8); MONO % 7.5 % (0.0-10.0); NEUT # 7.2 K/uL (1.8-7.0); RBC 2.67 Mil/uL (3.80-5.20); RED CELL DISTRIBUTION WIDTH 14.7 % (11.5-14.5); WHITE BLOOD COUNT 9.7 K/uL (4.8-10.8)
[2018-06-19] MEDS: Enoxaparin 40 mg Syringe SC SCH (08:52)
--- NOTE | 2018-06-19 10:11 | CP.PCM.PN ---
Subjective - Date & Time of Evaluation Date of Evaluation: 06/19/18 Time of Evaluation: 07:10 - Subjective Subjective: General Surgery Patient seen and examined. No acute event overnight. Pain is controlled with medication. Stool output is coming out of ileostomy via chest tube. NGT had 550cc of bilious output over 24hrs. Pt is still NPO and receiving TPN. Denies fever/chills or nausea/vomiting. L Drain came out of abdomen. Objective - Vital Signs/Intake and Output Vital Signs (last 24 hours): Temp Pulse Resp BP Pulse Ox 98.7 F 80 19 156/81 H 98 06/19/18 08:19 06/19/18 08:19 06/19/18 08:19 06/19/18 08:19 06/19/18 08:19 Intake and Output: 06/19/18 06/19/18 06:59 18:59 Output Total 255 Balance -255 - Medications Medications: Current Medications Aspirin (Aspirin Chewable) 81 mg PO DAILY [facility] Last Admin: 06/19/18 08:53 Dose: 81 mg Enoxaparin Sodium (Lovenox) 40 mg SC DAILY [facility]; Protocol Last Admin: 06/19/18 08:52 Dose: 40 mg Ampicillin Sodium/Sulbactam (Sodium 3 gm/ Sodium Chloride) 100 mls @ 100 mls/hr IVPB Q8@0200,1000,1800 [facility]; Protocol Last Admin: 06/19/18 09:04 Dose: 100 mls/hr Meropenem 1 gm/ Sodium (Chloride) 100 mls @ 100 mls/hr IVPB Q8@0000,0800,1600 [facility]; Protocol Last Admin: 06/19/18 08:51 Dose: 100 mls/hr Multivitamins/Vitamin C 10 ml/Chromium/Copper/Manganese/Zinc 3 ml/ Amino Acids/Electrolytes/Dextrose 1,013 mls @ 83 mls/hr IV .[id number] ONE Stop: 06/19/18 15:12 Last Admin: 06/19/18 06:42 Dose: 83 mls/hr Amino Acids/Electrolytes/Dextrose (Clinimix 5/20 % "E" (1000 Ml)) 1,000 mls @ 83 mls/hr IV .Q12H3M ONE Stop: 06/20/18 04:02 Metronidazole (Flagyl 500mg/100ml Ns) 100 mls @ 100 mls/hr IVPB Q8@0400,1200,2000 [facility]; Protocol Last Admin: 06/19/18 03:41 Dose: 100 mls/hr Ketorolac Tromethamine (Toradol) 30 mg IVP Q6 PRN PRN Reason: Pain, moderate (4-7) Last Admin: 06/19/18 09:03 Dose: 30 mg Metoclopramide HCl (Reglan) 10 mg IVP 0100,0700,1300,1900 [facility] Last Admin: 06/19/18 07:00 Dose: 10 mg Ondansetron HCl (Zofran Inj) 4 mg IVP Q6H PRN PRN Reason: Nausea/Vomiting Last Admin: 06/16/18 08:29 Dose: 4 mg Pantoprazole Sodium (Protonix Inj) 40 mg IVP DAILY [facility] Last Admin: 06/19/18 08:52 Dose: 40 mg - Labs Labs: 06/19/18 05:30 06/19/18 05:30 PT 12.5 Seconds (9.8-13.1) 06/07/18 11:34 INR 1.1 06/07/18 11:34 APTT 31.2 Seconds (25.6-37.1) 06/07/18 11:34 - Constitutional Appears: Non-toxic, No Acute Distress - Head Exam Head Exam: ATRAUMATIC, NORMOCEPHALIC - Eye Exam Eye Exam: EOMI. absent: Scleral icterus - Respiratory Exam Respiratory Exam: NORMAL BREATHING PATTERN. absent: Respiratory Distress - Cardiovascular Exam Cardiovascular Exam: RRR, +S1, +S2 - GI/Abdominal Exam GI & Abdominal Exam: Distended (mild), Soft, Tenderness (mild at incision). absent: Firm, Guarding, Rigid, Rebound Additional comments: ileostomy [place], viable with chest tube inside draining stool into walking bag Dressing changed R Roger Drain in place Assessment and Plan - Assessment and Plan (Free Text) Assessment: 53F s/p robotic culdoplasty with cecal perforation s/p Ex-lap with repair of perforation & diverting loop ileostomy; POD#12 Plan: - NPO with NGT intermittent suction - IV ABX - Continue TPN - Monitor for bowel function - Encourage ambulation & Incentive spirometry - Replete electrolytes as needed - I's & O's - Monitor drainage from tube inside ileostomy - f/u daily labs - f/u Abd flat plate D/W Dr. Malcolm May PGY4
--- NOTE | 2018-06-19 11:17 | RAD ---
Date of service: 06/19/2018 PROCEDURE: Radiographs of the chest and abdomen (obstructive series) HISTORY: obstruction COMPARISON: Chest radiograph dated 06/11/2018; abdominal radiographs dated 06/09/2018 TECHNIQUE: AP radiograph of the chest, with upright and supine radiographs of the abdomen. FINDINGS: CHEST: Lungs: Scarring along the right minor fissure. Bibasilar subsegmental atelectasis. Cardiovascular: Normal size heart. No pulmonary vascular congestion. Pleura: No pleural fluid. No pneumothorax. Other findings: Right upper extremity PICC. Enteric tube, unchanged. ABDOMEN AND PELVIS: Bowel: Diffuse dilatation of small-bowel loops with air-fluid levels. Free air: None. Bones: Unremarkable. Other findings: Midline surgical skin hossein. Right lower quadrant pelvic surgical drain with tip in the central pelvis. Left lower quadrant the surgical drain has been removed. Partially imaged chest tube in the left lower quadrant which reportedly was inserted via the ostomy. IMPRESSION: No focal consolidation or pleural effusion. Persistent small bowel obstruction.
--- NOTE | 2018-06-19 18:31 | CP.PCM.PN ---
Subjective - Date & Time of Evaluation Date of Evaluation: 06/19/18 Time of Evaluation: 18:30 - Subjective Subjective: ID NOTE AFEBRILE PLATELETS CONTINUE TO INCREASE AND ARE 931(ON ASA).THIS IS LIKELY REACTIVE BUT HAVE ASKED TO SEE. CONTINUE SAME ANTIBIOTICS(UNASYN/FLAGYL/MEROPENEM) Objective - Vital Signs/Intake and Output Vital Signs (last 24 hours): Temp Pulse Resp BP Pulse Ox 98.8 F 81 20 148/76 98 06/19/18 16:16 06/19/18 16:16 06/19/18 16:16 06/19/18 16:16 06/19/18 16:16 Intake and Output: 06/19/18 06/19/18 06:59 18:59 Intake Total 1766 Output Total 255 255 Balance -255 1511 - Medications Medications: Current Medications Aspirin (Aspirin Chewable) 81 mg PO DAILY [facility] Last Admin: 06/19/18 08:53 Dose: 81 mg Enoxaparin Sodium (Lovenox) 40 mg SC DAILY [facility]; Protocol Last Admin: 06/19/18 08:52 Dose: 40 mg Ampicillin Sodium/Sulbactam (Sodium 3 gm/ Sodium Chloride) 100 mls @ 100 mls/hr IVPB Q8@0200,1000,1800 [facility]; Protocol Last Admin: 06/19/18 17:03 Dose: 100 mls/hr Meropenem 1 gm/ Sodium (Chloride) 100 mls @ 100 mls/hr IVPB Q8@0000,0800,1600 [facility]; Protocol Last Admin: 06/19/18 16:09 Dose: 100 mls/hr Metronidazole (Flagyl 500mg/100ml Ns) 100 mls @ 100 mls/hr IVPB Q8@0400,1200,2000 [facility]; Protocol Last Admin: 06/19/18 11:07 Dose: 100 mls/hr Multivitamins/Vitamin C 10 ml/Chromium/Copper/Manganese/Zinc 3 ml/ Amino Acids/Electrolytes/Dextrose 1,013 mls @ 83 mls/hr IV .[id number] [facility] Amino Acids/Electrolytes/Dextrose (Clinimix 5/20 % "E" (1000 Ml)) 1,000 mls @ 83 mls/hr IV .Q12H3M ONE Stop: 06/20/18 07:02 Ketorolac Tromethamine (Toradol) 30 mg IVP Q6 PRN PRN Reason: Pain, moderate (4-7) Last Admin: 06/19/18 14:06 Dose: 30 mg Metoclopramide HCl (Reglan) 10 mg IVP 0100,0700,1300,1900 [facility] Last Admin: 06/19/18 13:01 Dose: 10 mg Ondansetron HCl (Zofran Inj) 4 mg IVP Q6H PRN PRN Reason: Nausea/Vomiting Last Admin: 06/16/18 08:29 Dose: 4 mg Pantoprazole Sodium (Protonix Inj) 40 mg IVP DAILY [facility] Last Admin: 06/19/18 08:52 Dose: 40 mg - Labs Labs: 06/19/18 05:30 06/19/18 05:30 PT 12.5 Seconds (9.8-13.1) 06/07/18 11:34 INR 1.1 06/07/18 11:34 APTT 31.2 Seconds (25.6-37.1) 06/07/18 11:34
--- NOTE | 2018-06-19 20:31 | PQF ---
PROVIDER RESPONSE TEXT: The patient has a BMI of 40.9 which is consistent with morbid obesity REVIEWER QUERY TEXT: Clarification of Clinical Diagnostic Findings 2 queries as follows: 1. In agreement with the BMI:40.9 as listed in the EMR? If yes please add the BMI to your progress n ote 2. If in agreement with the BMI is there an associated diagnosis to go along with the BMI: i.e. Morbi d Obesity etc. OR: Unable to determine OR:Other explanation of clinical finding The patient's Clinical Indicators include: XX Query created by: Silvia Horton on 06/08/2018 10:46 AM Electronically signed by: Sergei Cain MD 06/19/2018 8:28 PM
--- NOTE | 2018-06-19 20:34 | CP.PCM.PN ---
Subjective - Date & Time of Evaluation Date of Evaluation: 06/19/18 Time of Evaluation: 20:32 - Subjective Subjective: Patient doing well pain well-controlled ambulating resting comfortably and NG in place Objective - Vital Signs/Intake and Output Vital Signs (last 24 hours): Temp Pulse Resp BP Pulse Ox 98.8 F 81 20 148/76 98 06/19/18 16:16 06/19/18 16:16 06/19/18 16:16 06/19/18 16:16 06/19/18 16:16 Intake and Output: 06/19/18 06/20/18 18:59 06:59 Intake Total 1766 Output Total 255 Balance 1511 - Medications Medications: Current Medications Aspirin (Aspirin Chewable) 81 mg PO DAILY [facility] Last Admin: 06/19/18 08:53 Dose: 81 mg Enoxaparin Sodium (Lovenox) 40 mg SC DAILY [facility]; Protocol Last Admin: 06/19/18 08:52 Dose: 40 mg Ampicillin Sodium/Sulbactam (Sodium 3 gm/ Sodium Chloride) 100 mls @ 100 mls/hr IVPB Q8@0200,1000,1800 [facility]; Protocol Last Admin: 06/19/18 17:03 Dose: 100 mls/hr Meropenem 1 gm/ Sodium (Chloride) 100 mls @ 100 mls/hr IVPB Q8@0000,0800,1600 [facility]; Protocol Last Admin: 06/19/18 16:09 Dose: 100 mls/hr Metronidazole (Flagyl 500mg/100ml Ns) 100 mls @ 100 mls/hr IVPB Q8@0400,1200,2000 [facility]; Protocol Last Admin: 06/19/18 20:07 Dose: 100 mls/hr Multivitamins/Vitamin C 10 ml/Chromium/Copper/Manganese/Zinc 3 ml/ Amino Acids/Electrolytes/Dextrose 1,013 mls @ 83 mls/hr IV .[id number] [facility] Amino Acids/Electrolytes/Dextrose (Clinimix 5/20 % "E" (1000 Ml)) 1,000 mls @ 83 mls/hr IV .Q12H3M ONE Stop: 06/20/18 07:02 Last Admin: 06/19/18 20:07 Dose: 83 mls/hr Ketorolac Tromethamine (Toradol) 30 mg IVP Q6 PRN PRN Reason: Pain, moderate (4-7) Last Admin: 06/19/18 20:09 Dose: 30 mg Metoclopramide HCl (Reglan) 10 mg IVP 0100,0700,1300,1900 [facility] Last Admin: 06/19/18 18:49 Dose: 10 mg Ondansetron HCl (Zofran Inj) 4 mg IVP Q6H PRN PRN Reason: Nausea/Vomiting Last Admin: 06/16/18 08:29 Dose: 4 mg Pantoprazole Sodium (Protonix Inj) 40 mg IVP DAILY [facility] Last Admin: 06/19/18 08:52 Dose: 40 mg - Labs Labs: 06/19/18 05:30 06/19/18 05:30 PT 12.5 Seconds (9.8-13.1) 06/07/18 11:34 INR 1.1 06/07/18 11:34 APTT 31.2 Seconds (25.6-37.1) 06/07/18 11:34 - ENT Exam Additional comments: NG in place - Respiratory Exam Respiratory Exam: Clear to Ausculation Bilateral - Cardiovascular Exam Cardiovascular Exam: REGULAR RHYTHM - Psychiatric Exam Psychiatric exam: Normal Affect Assessment and Plan - Assessment and Plan (Free Text) Assessment: Postoperative day #12 Continue NGT Encourage ambulation Analgesia as needed Plan Of care discussed with family
[2018-06-20] MEDS: Meropenem 1 GM in Sodium Chloride 0.9% 100 ML IVPB SCH ×4 (00:16→23:53)
[2018-06-20] MEDS: metroNIDAZOLE 500mg/100ml NS 100 ML IVPB SCH ×3 (03:26→20:01)
[2018-06-20 06:14] LABS: BASO # 0.1 K/uL (0.0-0.2); BASO % 0.9 % (0.0-2.0); EOS # 0.2 K/uL (0.0-0.7); EOS % 2.2 % (0.0-4.0); HEMOGLOBIN 8.1 g/dL (12.0-16.0); LYMPH # 1.4 K/uL (1.0-4.3); LYMPH % 18.5 % (20.0-40.0); MEAN CELL VOLUME 91.6 fl (81.0-99.0); MEAN CORPUSCULAR HEMOGLOBIN 29.2 pg (27.0-31.0); MEAN CORPUSCULAR HGB CONC 31.9 g/dL (33.0-37.0); MONO # 0.7 K/uL (0.0-0.8); MONO % 9.2 % (0.0-10.0); NEUT # 5.4 K/uL (1.8-7.0); NEUT % 69.2 % (50.0-75.0); RBC 2.78 Mil/uL (3.80-5.20); RED CELL DISTRIBUTION WIDTH 15.1 % (11.5-14.5); WHITE BLOOD COUNT 7.7 K/uL (4.8-10.8)
[2018-06-20 06:26] LABS: ALB/GLOB RATIO 0.7 (1.0-2.1); ALT/SGPT 25 U/L (9-52); AST/SGOT 55 U/L (14-36); BLOOD UREA NITROGEN 11 mg/dl (7-17); CALCIUM 8.4 mg/dL (8.4-10.2); GFR NON-AFRICAN AMERICAN > 60
[2018-06-20] MEDS: Enoxaparin 40 mg Syringe SC SCH (09:36)
--- NOTE | 2018-06-20 09:57 | CP.PCM.PN ---
Subjective - Date & Time of Evaluation Date of Evaluation: 06/20/18 Time of Evaluation: 08:00 - Subjective Subjective: Surgery: Dr. Fowler Pt seen and examined. No acute overnight events. States she feels about the same, and her abdominal pain is well controlled with the pain meds. The chest tube inserted into the ostomy fell out overnight and had to be placed back in. Pt with minimal bilious drainage in ostomy bag. Denies N/V, F/C. Objective - Vital Signs/Intake and Output Vital Signs (last 24 hours): Temp Pulse Resp BP Pulse Ox 98.0 F 78 19 152/86 H 100 06/20/18 08:12 06/20/18 08:12 06/20/18 08:12 06/20/18 08:12 06/20/18 08:12 Intake and Output: 06/20/18 06/20/18 06:59 18:59 Output Total 400 5 Balance -400 -5 - Medications Medications: Current Medications Aspirin (Aspirin Chewable) 81 mg PO DAILY [facility] Last Admin: 06/20/18 09:45 Dose: 81 mg Enoxaparin Sodium (Lovenox) 40 mg SC DAILY [facility]; Protocol Last Admin: 06/20/18 09:36 Dose: 40 mg Ampicillin Sodium/Sulbactam (Sodium 3 gm/ Sodium Chloride) 100 mls @ 100 mls/hr IVPB Q8@0200,1000,1800 [facility]; Protocol Last Admin: 06/20/18 09:44 Dose: 100 mls/hr Meropenem 1 gm/ Sodium (Chloride) 100 mls @ 100 mls/hr IVPB Q8@0000,0800,1600 [facility]; Protocol Last Admin: 06/20/18 09:36 Dose: 100 mls/hr Metronidazole (Flagyl 500mg/100ml Ns) 100 mls @ 100 mls/hr IVPB Q8@0400,1200,2000 [facility]; Protocol Last Admin: 06/20/18 03:26 Dose: 100 mls/hr Multivitamins/Vitamin C 10 ml/Chromium/Copper/Manganese/Zinc 3 ml/ Amino Aci ds/Electrolytes/Dextrose 1,013 mls @ 83 mls/hr IV .[id number] [facility] Ketorolac Tromethamine (Toradol) 30 mg IVP Q6 PRN PRN Reason: Pain, moderate (4-7) Last Admin: 06/20/18 03:26 Dose: 30 mg Metoclopramide HCl (Reglan) 10 mg IVP 0100,0700,1300,1900 [facility] Last Admin: 06/20/18 06:43 Dose: 10 mg Ondansetron HCl (Zofran Inj) 4 mg IVP Q6H PRN PRN Reason: Nausea/Vomiting Last Admin: 06/16/18 08:29 Dose: 4 mg Pantoprazole Sodium (Protonix Inj) 40 mg IVP DAILY [facility] Last Admin: 06/20/18 09:43 Dose: 40 mg - Labs Labs: 06/20/18 06:00 06/20/18 06:00 PT 12.5 Seconds (9.8-13.1) 06/07/18 11:34 INR 1.1 06/07/18 11:34 APTT 31.2 Seconds (25.6-37.1) 06/07/18 11:34 - Constitutional Appears: No Acute Distress - Head Exam Head Exam: ATRAUMATIC, NORMOCEPHALIC - ENT Exam ENT Exam: Mucous Membranes Dry Additional comments: NGT in place - Respiratory Exam Respiratory Exam: NORMAL BREATHING PATTERN - Cardiovascular Exam Cardiovascular Exam: RRR - GI/Abdominal Exam GI & Abdominal Exam: Soft, Tenderness (upon digitization of the ostomy ). absent: Guarding, Rebound - Extremities Exam Extremities Exam: absent: Calf Tenderness, Pedal Edema - Neurological Exam Neurological Exam: Alert, Awake, Oriented x3 - Skin Skin Exam: Dry, Warm Assessment and Plan - Assessment and Plan (Free Text) Assessment: 53F s/p Ex-lap with diverting loop ileostomy for complication post culdoplasty of cecal perforation; POD#13 Plan: - cont NPO with NGT - cont TPN - plan for OR tomorrow for ex-lap with revision of ostomy - encourage ambulation/IS - d/w Dr. Malcolm Jamison
--- NOTE | 2018-06-20 14:44 | CP.PCM.PN ---
Subjective - Date & Time of Evaluation Date of Evaluation: 06/20/18 Time of Evaluation: 14:30 - Subjective Subjective: I D NOTE AWAITING HEMATOLOGY CONSULT WBC:7 NO CHANGE IN RX Objective - Vital Signs/Intake and Output Vital Signs (last 24 hours): Temp Pulse Resp BP Pulse Ox 98.0 F 78 19 152/86 H 100 06/20/18 08:12 06/20/18 08:12 06/20/18 08:12 06/20/18 08:12 06/20/18 08:12 Intake and Output: 06/20/18 06/20/18 06:59 18:59 Output Total 400 5 Balance -400 -5 - Medications Medications: Current Medications Aspirin (Aspirin Chewable) 81 mg PO DAILY [facility] Last Admin: 06/20/18 09:45 Dose: 81 mg Enoxaparin Sodium (Lovenox) 40 mg SC DAILY [facility]; Protocol Last Admin: 06/20/18 09:36 Dose: 40 mg Ampicillin Sodium/Sulbactam (Sodium 3 gm/ Sodium Chloride) 100 mls @ 100 mls/hr IVPB Q8@0200,1000,1800 [facility]; Protocol Last Admin: 06/20/18 09:44 Dose: 100 mls/hr Meropenem 1 gm/ Sodium (Chloride) 100 mls @ 100 mls/hr IVPB Q8@0000,0800,1600 [facility]; Protocol Last Admin: 06/20/18 09:36 Dose: 100 mls/hr Metronidazole (Flagyl 500mg/100ml Ns) 100 mls @ 100 mls/hr IVPB Q8@0400,1200,20 00 [facility]; Protocol Last Admin: 06/20/18 12:07 Dose: 100 mls/hr Multivitamins/Vitamin C 10 ml/Chromium/Copper/Manganese/Zinc 3 ml/ Amino Acids/Electrolytes/Dextrose 1,013 mls @ 83 mls/hr IV .[id number] [facility] Last Admin: 06/20/18 12:08 Dose: 83 mls/hr Ketorolac Tromethamine (Toradol) 30 mg IVP Q6 PRN PRN Reason: Pain, moderate (4-7) Last Admin: 06/20/18 09:55 Dose: 30 mg Metoclopramide HCl (Reglan) 10 mg IVP 0100,0700,1300,1900 [facility] Last Admin: 06/20/18 12:18 Dose: 10 mg Ondansetron HCl (Zofran Inj) 4 mg IVP Q6H PRN PRN Reason: Nausea/Vomiting Last Admin: 06/16/18 08:29 Dose: 4 mg Pantoprazole Sodium (Protonix Inj) 40 mg IVP DAILY [facility] Last Admin: 06/20/18 09:43 Dose: 40 mg - Labs Labs: 06/20/18 06:00 06/20/18 06:00 PT 12.5 Seconds (9.8-13.1) 06/07/18 11:34 INR 1.1 06/07/18 11:34 APTT 31.2 Seconds (25.6-37.1) 06/07/18 11:34
[2018-06-21] MEDS: metroNIDAZOLE 500mg/100ml NS 100 ML IVPB SCH ×3 (04:15→20:14)
[2018-06-21 06:38] LABS: BASO # 0.1 K/uL (0.0-0.2); BASO % 1.2 % (0.0-2.0); EOS # 0.2 K/uL (0.0-0.7); EOS % 2.4 % (0.0-4.0); HEMOGLOBIN 8.4 g/dL (12.0-16.0); LYMPH # 1.4 K/uL (1.0-4.3); LYMPH % 19.1 % (20.0-40.0); MEAN CELL VOLUME 91.9 fl (81.0-99.0); MEAN CORPUSCULAR HEMOGLOBIN 30.2 pg (27.0-31.0); MEAN CORPUSCULAR HGB CONC 32.8 g/dL (33.0-37.0); MEAN PLATELET VOLUME 6.4 fl (7.2-11.7); MONO # 0.7 K/uL (0.0-0.8); MONO % 10.1 % (0.0-10.0); NEUT # 4.9 K/uL (1.8-7.0); NEUT % 67.2 % (50.0-75.0); RBC 2.79 Mil/uL (3.80-5.20); RED CELL DISTRIBUTION WIDTH 14.8 % (11.5-14.5); WHITE BLOOD COUNT 7.4 K/uL (4.8-10.8)
[2018-06-21 06:53] LABS: INR 1.2; PROTHROMBIN TIME 13.6 Seconds (9.8-13.1)
[2018-06-21 06:56] LABS: PARTIAL THROMBOPLASTIN TIME 39.3 Seconds (25.6-37.1)
[2018-06-21 07:45] LABS: ALB/GLOB RATIO 0.7 (1.0-2.1); ALT/SGPT 17 U/L (9-52); AST/SGOT 58 U/L (14-36); BLOOD UREA NITROGEN 9 mg/dl (7-17); CALCIUM 8.5 mg/dL (8.4-10.2); GFR NON-AFRICAN AMERICAN > 60
[2018-06-21] MEDS: Meropenem 1 GM in Sodium Chloride 0.9% 100 ML IVPB SCH ×2 (08:38→16:28)
[2018-06-21] MEDS: Enoxaparin 40 mg Syringe SC SCH (08:40)
--- NOTE | 2018-06-21 10:07 | CP.PCM.CON ---
History of Present Illness - History of Present Illness History of Present Illness: 53 year old female with a history of prolapsed cervix s/p robotic culdoplasty and lysis of adhesions, complicated by cecal perforation s/p exploratory laparotomy amd repair of perforation & diverting loop ileostomy, with anemia, and thrombocytosis. The patient feels she is slowly improving. She is unaware of blood problems in the past. She has not had bruising, bleeding, or clotting problems in the past. Review of her blood work, shows a platelet count > 1,000,000 but normal platelet count about 2 week ago. Past medical history: prolapsed cervix Past surgical history: Hysterectomy, Family history: Denies hematologic and oncologic problems Social history: Denies tobacco, alcohol, and illicit drug use. Allergies: NKA Review of systems: All remaining review of systems including HEENT, cardiovascular, respiratory, gastrointestinal, genitourinary, musculoskeletal, dermatologic, neurologic, and psychiatric are negative unless mentioned in the HPI. Past Patient History - Past Medical History & Family History Past Medical History?: Yes - Past Social History Smoking Status: Former Smoker - CARDIAC Hx Cardiac Disorders: No - PULMONARY Hx Respiratory Disorders: No - NEUROLOGICAL Hx Neurological Disorder: No - HEENT Hx HEENT Problems: No - RENAL Hx Chronic Kidney Disease: No - ENDOCRINE/METABOLIC Hx Endocrine Disorders: No - HEMATOLOGICAL/ONCOLOGICAL Hx Blood Disorders: No - INTEGUMENTARY Hx Dermatological Problems: No - MUSCULOSKELETAL/RHEUMATOLOGICAL Hx Musculoskeletal Disorders: Yes Hx Arthritis: Yes (knees) Hx Rheumatoid Arthritis: Yes - GASTROINTESTINAL Hx Gastrointestinal Disorders: No - GENITOURINARY/GYNECOLOGICAL Hx Genitourinary Disorders: No - PSYCHIATRIC Hx Psychophysiologic Disorder: No - SURGICAL HISTORY Hx Surgeries: Yes Hx Breast Biopsy: Yes (right breast) Hx Section: Yes (x1) Hx Hysterectomy: Yes - ANESTHESIA Hx Anesthesia: Yes Hx Anesthesia Reactions: No Has any member of the family had a problem w/ anesthesia?: No Meds Allergies/Adverse Reactions: Allergies Allergy/AdvReac Type Severity Reaction Status Date / Time No Known Allergies Allergy Verified 05/27/18 09:39 - Medications Medications: Current Medications Aspirin (Aspirin Chewable) 81 mg PO DAILY [facility] Last Admin: 06/21/18 08:37 Dose: 81 mg Enoxaparin Sodium (Lovenox) 40 mg SC DAILY [facility]; Protocol Last Admin: 06/21/18 08:40 Dose: 40 mg Fat Emulsion Intravenous (Intralipid 20%) 250 ml IV DAILY [facility] Ampicillin Sodium/Sulbactam (Sodium 3 gm/ Sodium Chloride) 100 mls @ 100 mls/hr IVPB Q8@0200,1000,1800 [facility]; Protocol Last Admin: 06/21/18 09:52 Dose: 100 mls/hr Meropenem 1 gm/ Sodium (Chloride) 100 mls @ 100 mls/hr IVPB Q8@0000,0800,1600 [facility]; Protocol Last Admin: 06/21/18 08:38 Dose: 100 mls/hr Metronidazole (Flagyl 500mg/100ml Ns) 100 mls @ 100 mls/hr IVPB Q8@0400, 1200,2000 [facility]; Protocol Last Admin: 06/21/18 04:15 Dose: 100 mls/hr Multivitamins/Vitamin C 10 ml/Chromium/Copper/Manganese/Zinc 3 ml/ Amino Acids/Electrolytes/Dextrose 1,013 mls @ 83 mls/hr IV .[id number] [facility] Last Admin: 06/20/18 12:08 Dose: 83 mls/hr Amino Acids/Electrolytes/Dextrose (Clinimix 5/20 % "E" (1000 Ml)) 1,000 mls @ 83 mls/hr IV .Q12H3M [facility] Last Admin: 06/20/18 23:52 Dose: 83 mls/hr Ketorolac Tromethamine (Toradol) 30 mg IVP Q6 PRN PRN Reason: Pain, moderate (4-7) Last Admin: 06/21/18 09:51 Dose: 30 mg Metoclopramide HCl (Reglan) 10 mg IVP 0100,0700,1300,1900 [facility] Last Admin: 06/21/18 06:06 Dose: 10 mg Ondansetron HCl (Zofran Inj) 4 mg IVP Q6H PRN PRN Reason: Nausea/Vomiting Last Admin: 06/16/18 08:29 Dose: 4 mg Pantoprazole Sodium (Protonix Inj) 40 mg IVP DAILY [facility] Last Admin: 06/21/18 08:38 Dose: 40 mg Physical Exam - Head Exam Head Exam: ATRAUMATIC - Eye Exam Eye Exam: Normal appearance - ENT Exam ENT Exam: Mucous Membranes Dry - Respiratory Exam Respiratory Exam: NORMAL BREATHING PATTERN - Cardiovascular Exam Cardiovascular Exam: +S1, +S2 - GI/Abdominal Exam GI & Abdominal Exam: Normal Bowel Sounds - Extremities Exam Extremities exam: Positive for: normal inspection - Neurological Exam Neurological exam: Oriented x3 - Psychiatric Exam Psychiatric exam: Normal Affect, Normal Mood - Skin Skin Exam: Warm Results - Vital Signs Recent Vital Signs: Last Vital Signs Temp 98.9 F 06/21/18 08:10 Pulse 76 06/21/18 08:10 Resp 18 06/21/18 08:10 BP 149/85 06/21/18 08:10 Pulse Ox 100 06/21/18 08:10 - Labs Result Diagrams: 06/22/18 05:20 06/22/18 08:30 Labs: Laboratory Results - last 24 hr 06/20/18 06/20/18 06/20/18 10:43 15:40 21:37 WBC RBC Hgb Hct MCV MCH MCHC RDW Plt Count MPV Neut % (Auto) Lymph % (Auto) [place] % (Auto) Eos % (Auto) Baso % (Auto) Neut # (Auto) Lymph # (Auto) [place] # (Auto) Eos # (Auto) Baso # (Auto) PT INR APTT Sodium Potassium Chloride Carbon Dioxide Anion Gap BUN Creatinine Est GFR ( Amer) Est GFR (Non-Af Amer) POC Glucose (mg/dL) 99 129 H 116 H Random Glucose Calcium Phosphorus Magnesium Total Bilirubin AST ALT Alkaline Phosphatase Total Protein Albumin Globulin Albumin/Globulin Ratio Blood Type Antibody Screen Crossmatch BBK History Checked 06/21/18 06/21/18 06/21/18 05:20 05:20 05:20 WBC 7.4 RBC 2.79 L Hgb 8.4 L Hct 25.7 L MCV 91.9 MCH 30.2 MCHC 32.8 L RDW 14.8 H Plt Count 1042 H* MPV 6.4 L Neut % (Auto) 67.2 Lymph % (Auto) 19.1 L [place] % (Auto) 10.1 H Eos % (Auto) 2.4 Baso % (Auto) 1.2 Neut # (Auto) 4.9 Lymph # (Auto) 1.4 [place] # (Auto) 0.7 Eos # (Auto) 0.2 Baso # (Auto) 0.1 PT 13.6 H INR 1.2 APTT 39.3 H Sodium 139 Potassium 4.0 Chloride 106 Carbon Dioxide 27 Anion Gap 10 BUN 9 Creatinine 0.5 L Est GFR ( Amer) > 60 Est GFR (Non-Af Amer) > 60 POC Glucose (mg/dL) Random Glucose 113 H Calcium 8.5 Phosphorus 3.5 Magnesium 2.3 Total Bilirubin 0.3 AST 58 H ALT 17 Alkaline Phosphatase 77 Total Protein 7.3 Albumin 3.0 L Globulin 4.2 H Albumin/Globulin Ratio 0.7 L Blood Type Antibody Screen Crossmatch BBK History Checked 06/21/18 06/21/18 05:20 05:21 WBC RBC Hgb Hct MCV MCH MCHC RDW Plt Count MPV Neut % (Auto) Lymph % (Auto) [place] % (Auto) Eos % (Auto) Baso % (Auto) Neut # (Auto) Lymph # (Auto) [place] # (Auto) Eos # (Auto) Baso # (Auto) PT INR APTT Sodium Potassium Chloride Carbon Dioxide Anion Gap BUN Creatinine Est GFR ( Amer) Est GFR (Non-Af Amer) POC Glucose (mg/dL) 128 H Random Glucose Calcium Phosphorus Magnesium Total Bilirubin AST ALT Alkaline Phosphatase Total Protein Albumin Globulin Albumin/Globulin Ratio Blood Type A POSITIVE Antibody Screen Negative Crossmatch See Detail BBK History Checked Patient has bt Assessment & Plan (1) Thrombocytosis Assessment and Plan: normal platelet count last week - likely reactive thrombocytosis from acute illness/infection agree with baby aspirin and DVT prophylaxis; of note reactive thrombocytosis typically does not lead to clotting will rule out iron deficiency as another cause for reactive thrombocytosis should the platelet count not improve with improvement in her acute issues, will perform myeloproliferative disorder evaluation Status: Acute (2) Anemia Assessment and Plan: likely chronic disease retic, b12, folate, ferritin sent Thank you for this interesting consult. Status: Acute
[2018-06-21] MEDS ORDERED: ZINC IV SCH (13:45)
[2018-06-21] MEDS ORDERED: COPPER IV SCH (13:45)
[2018-06-21] MEDS ORDERED: [UNRECOGNIZED DRUG - OTHER] IV SCH (13:45)
[2018-06-21] MEDS ORDERED: MANGANESE IV SCH (13:45)
[2018-06-21] MEDS ORDERED: MULTIVITAMIN IV SCH (13:45)
[2018-06-21] MEDS ORDERED: CHROMIUM IV SCH (13:45)
[2018-06-22] MEDS: Meropenem 1 GM in Sodium Chloride 0.9% 100 ML IVPB SCH ×3 (00:02→16:43)
[2018-06-22] MEDS: metroNIDAZOLE 500mg/100ml NS 100 ML IVPB SCH ×3 (03:14→20:17)
[2018-06-22 08:57] LABS: BASO % 0.7 % (0.0-2.0); EOS # 0.2 K/uL (0.0-0.7); EOS % 2.3 % (0.0-4.0); HEMOGLOBIN 9.2 g/dL (12.0-16.0); LYMPH # 1.4 K/uL (1.0-4.3); LYMPH % 19.9 % (20.0-40.0); MEAN CELL VOLUME 91.6 fl (81.0-99.0); MEAN CORPUSCULAR HGB CONC 32.7 g/dL (33.0-37.0); MEAN PLATELET VOLUME 6.2 fl (7.2-11.7); MONO # 0.8 K/uL (0.0-0.8); MONO % 11.6 % (0.0-10.0); NEUT # 4.7 K/uL (1.8-7.0); NEUT % 65.5 % (50.0-75.0); RBC 3.06 Mil/uL (3.80-5.20); RED CELL DISTRIBUTION WIDTH 14.8 % (11.5-14.5); WHITE BLOOD COUNT 7.2 K/uL (4.8-10.8)
[2018-06-22 09:25] LABS: ALB/GLOB RATIO 0.7 (1.0-2.1); ALBUMIN 3.3 g/dL (3.5-5.0); ALT/SGPT 20 U/L (9-52); AST/SGOT 79 U/L (14-36); BLOOD UREA NITROGEN 11 mg/dl (7-17); CALCIUM 8.8 mg/dL (8.4-10.2); GFR NON-AFRICAN AMERICAN > 60
--- NOTE | 2018-06-22 11:59 | CP.PCM.PN ---
Subjective - Date & Time of Evaluation Date of Evaluation: 06/22/18 Time of Evaluation: 11:57 - Subjective Subjective: Surgery: Dr. Fowler Pt seen and examined. No acute overnight events. States she feels well this morning and denies abdominal pain. NGT was removed this AM and pt states she feels a lot better. She admits to tolerating sips of water. Denies fevers/chills. Objective - Vital Signs/Intake and Output Vital Signs (last 24 hours): Temp Pulse Resp BP Pulse Ox 98.1 F 76 18 138/83 99 06/22/18 08:28 06/22/18 11:33 06/22/18 08:28 06/22/18 08:28 06/22/18 08:28 Intake and Output: 06/22/18 06/22/18 06:59 18:59 Output Total 551 Balance -551 - Medications Medications: Current Medications Aspirin (Aspirin Chewable) 81 mg PO DAILY [facility] Last Admin: 06/22/18 09:25 Dose: 81 mg Enoxaparin Sodium (Lovenox) 40 mg SC DAILY [facility]; Protocol Fat Emulsion Intravenous (Intralipid 20%) 250 ml IV DAILY [facility] Last Admin: 06/22/18 10:56 Dose: 250 ml Ampicillin Sodium/Sulbactam (Sodium 3 gm/ Sodium Chloride) 100 mls @ 100 mls/hr IVPB Q8@0200,1000,1800 [facility]; Protocol Last Admin: 06/22/18 01:12 Dose: 100 mls/hr Meropenem 1 gm/ Sodium (Chloride) 100 mls @ 100 mls/hr IVPB Q8@0000,0800,1600 [facility]; Protocol Last Admin: 06/22/18 09:34 Dose: 100 mls/hr Metronidazole (Flagyl 500mg/100ml Ns) 100 mls @ 100 mls/hr IVPB Q8@0400,1200,2000 [facility]; Protocol Last Admin: 06/22/18 03:14 Dose: 100 mls/hr Multivitamins/Vitamin C 10 ml/Chromium/Copper/Manganese/Zinc 3 ml/ Amino Acids/E lectrolytes/Dextrose 1,013 mls @ 83 mls/hr IV .[id number] [facility] Last Admin: 06/20/18 12:08 Dose: 83 mls/hr Amino Acids/Electrolytes/Dextrose (Clinimix 5/20 % "E" (1000 Ml)) 1,000 mls @ 83 mls/hr IV .Q12H3M [facility] Last Admin: 06/20/18 23:52 Dose: 83 mls/hr Amino Acids/Electrolytes/Dextrose (Clinimix 5/20 % "E" (1000 Ml)) 1,000 mls @ 83 mls/hr IV .Q12H3M [facility] Stop: 06/22/18 14:00 Last Admin: 06/22/18 02:29 Dose: 83 mls/hr Ketorolac Tromethamine (Toradol) 30 mg IVP Q6 PRN PRN Reason: Pain, moderate (4-7) Last Admin: 06/22/18 09:23 Dose: 30 mg Metoclopramide HCl (Reglan) 10 mg IVP 0100,0700,1300,1900 [facility] Last Admin: 06/22/18 09:24 Dose: 10 mg Ondansetron HCl (Zofran Inj) 4 mg IVP Q6H PRN PRN Reason: Nausea/Vomiting Last Admin: 06/16/18 08:29 Dose: 4 mg - Labs Labs: 06/22/18 05:20 06/22/18 08:30 PT 13.6 Seconds (9.8-13.1) H 06/21/18 05:20 INR 1.2 06/21/18 05:20 APTT 39.3 Seconds (25.6-37.1) H 06/21/18 05:20 - Constitutional Appears: Well, No Acute Distress - Head Exam Head Exam: ATRAUMATIC, NORMOCEPHALIC - ENT Exam ENT Exam: Mucous Membranes Moist - Respiratory Exam Respiratory Exam: NORMAL BREATHING PATTERN - Cardiovascular Exam Cardiovascular Exam: RRR - GI/Abdominal Exam GI & Abdominal Exam: Soft, Tenderness (upon digitization of ostomy, patent with tube in place, liquid stool in bag ). absent: Distended - Neurological Exam Neurological Exam: Alert, Awake, Oriented x3 - Skin Skin Exam: Dry, Warm Assessment and Plan - Assessment and Plan (Free Text) Assessment: 53F s/p Ex-lap with diverting loop ileostomy for complication of cecal perforation s/p culdoplasty; POD#15 Plan: - ok to give sips of clears - monitor ostomy output - encourage ambulation - cont IV ABX per ID recs - cont TPN - d/w Dr. Malcolm Jamison
[2018-06-22] MEDS: Enoxaparin 40 mg Syringe SC SCH (13:25)
--- NOTE | 2018-06-22 17:47 | CP.PCM.PN ---
Subjective - Date & Time of Evaluation Date of Evaluation: 06/22/18 Time of Evaluation: 17:44 - Subjective Subjective: I D NOTE CLINICALLY SOME IMPROVEMENT PLATELETS 1092 BEING SEEN BY HEMATOLOGY(ON LOVENOX) CONTINUE UNASYN/FLAGYL /MEROPENEM Objective - Vital Signs/Intake and Output Vital Signs (last 24 hours): Temp Pulse Resp BP Pulse Ox 99 F 74 18 152/83 H 100 06/22/18 15:57 06/22/18 15:57 06/22/18 15:57 06/22/18 15:57 06/22/18 15:57 Intake and Output: 06/22/18 06/22/18 06:59 18:59 Output Total 551 Balance -551 - Medications Medications: Current Medications Aspirin (Aspirin Chewable) 81 mg PO DAILY [facility] Last Admin: 06/22/18 09:25 Dose: 81 mg Enoxaparin Sodium (Lovenox) 40 mg SC DAILY [facility]; Protocol Last Admin: 06/22/18 13:25 Dose: 40 mg Fat Emulsion Intravenous (Intralipid 20%) 250 ml IV DAILY [facility] Last Admin: 06/22/18 10:56 Dose: 250 ml Ampicillin Sodium/Sulbactam (Sodium 3 gm/ Sodium Chloride) 100 mls @ 100 mls/hr IVPB Q8@0200,1000,1800 [facility]; Protocol Last Admin: 06/22/18 11:10 Dose: 100 mls/hr Meropenem 1 gm/ Sodium (Chloride) 100 mls @ 100 mls/hr IVPB Q8@0000,0800,1600 [facility]; Protocol Last Admin: 06/22/18 16:43 Dose: 100 mls/hr Metronidazole (Flagyl 500mg/100ml Ns) 100 mls @ 100 mls/hr IVPB Q8@0400,1200,2000 [facility]; Protocol Last Admin: 06/22/18 13:26 Dose: 100 mls/hr Amino Acids/Electrolytes/Dextrose (Clinimix 5/20 % "E" (1000 Ml)) 1,000 mls @ 83 mls/hr IV .Q12H3M [facility] Last Admin: 06/22/18 12:42 Dose: Not Given Multivitamins/Vitamin C 10 ml/Chromium/Copper/Manganese/Zinc 3 ml/ Amino Acids/Electrolytes/Dextrose 1,013 mls @ 83 mls/hr IV ONCE ONE Stop: 06/23/18 13:12 Last Admin: 06/22/18 16:41 Dose: 83 mls/hr Amino Acids/Electrolytes/Dextrose (Clinimix 5/20 % "E" (1000 Ml)) 1,000 mls @ 83 mls/hr IV .Q12H3M [facility] Ketorolac Tromethamine (Toradol) 30 mg IVP Q6 PRN PRN Reason: Pain, moderate (4-7) Last Admin: 06/22/18 09:23 Dose: 30 mg Metoclopramide HCl (Reglan) 10 mg IVP 0100,0700,1300,1900 [facility] Last Admin: 06/22/18 13:39 Dose: 10 mg Ondansetron HCl (Zofran Inj) 4 mg IVP Q6H PRN PRN Reason: Nausea/Vomiting Last Admin: 06/16/18 08:29 Dose: 4 mg - Labs Labs: 06/22/18 05:20 06/22/18 08:30 PT 13.6 Seconds (9.8-13.1) H 06/21/18 05:20 INR 1.2 06/21/18 05:20 APTT 39.3 Seconds (25.6-37.1) H 06/21/18 05:20
--- NOTE | 2018-06-22 22:05 | CP.PCM.PN ---
Subjective - Date & Time of Evaluation Date of Evaluation: 06/22/18 Time of Evaluation: 18:00 - Subjective Subjective: Has some abdominal discomfort. Objective - Vital Signs/Intake and Output Vital Signs (last 24 hours): Temp Pulse Resp BP Pulse Ox 99 F 74 18 152/83 H 100 06/22/18 15:57 06/22/18 15:57 06/22/18 15:57 06/22/18 15:57 06/22/18 15:57 Intake and Output: 06/22/18 06/23/18 18:59 06:59 Output Total 550 Balance -550 - Medications Medications: Current Medications Aspirin (Aspirin Chewable) 81 mg PO DAILY [facility] Last Admin: 06/22/18 09:25 Dose: 81 mg Enoxaparin Sodium (Lovenox) 40 mg SC DAILY [facility]; Protocol Last Admin: 06/22/18 13:25 Dose: 40 mg Fat Emulsion Intravenous (Intralipid 20%) 250 ml IV DAILY [facility] Last Admin: 06/22/18 10:56 Dose: 250 ml Ampicillin Sodium/Sulbactam (Sodium 3 gm/ Sodium Chloride) 100 mls @ 100 mls/hr IVPB Q8@0200,1000,1800 [facility]; Protocol Last Admin: 06/22/18 11:10 Dose: 100 mls/hr Meropenem 1 gm/ Sodium (Chloride) 100 mls @ 100 mls/hr IVPB Q8@0000,0800,1600 [facility]; Protocol Last Admin: 06/22/18 16:43 Dose: 100 mls/hr Metronidazole (Flagyl 500mg/100ml Ns) 100 mls @ 100 mls/hr IVPB Q8@0400,1200,2000 [facility]; Protocol Last Admin: 06/22/18 20:17 Dose: 100 mls/hr Amino Acids/Electrolytes/Dextrose (Clinimix 5/20 % "E" (1000 Ml)) 1,000 mls @ 83 mls/hr IV .Q12H3M [facility] Last Admin: 06/22/18 12:42 Dose: Not Given Multivitamins/Vitamin C 10 ml/Chromium/Copper/Manganese/Zinc 3 ml/ Amino Acids/Electrolytes/Dextrose 1,013 mls @ 83 mls/hr IV ONCE ONE Stop: 06/23/18 13:12 Last Admin: 06/22/18 16:41 Dose: 83 mls/hr Amino Acids/Electrolytes/Dextrose (Clinimix 5/20 % "E" (1000 Ml)) 1,000 mls @ 83 mls/hr IV .Q12H3M [facility] Ketorolac Tromethamine (Toradol) 30 mg IVP Q6 PRN PRN Reason: Pain, moderate (4-7) Last Admin: 06/22/18 20:13 Dose: 30 mg Metoclopramide HCl (Reglan) 10 mg IVP 0100,0700,1300,1900 [facility] Last Admin: 06/22/18 20:16 Dose: 10 mg Ondansetron HCl (Zofran Inj) 4 mg IVP Q6H PRN PRN Reason: Nausea/Vomiting Last Admin: 06/16/18 08:29 Dose: 4 mg - Labs Labs: 06/22/18 05:20 06/22/18 08:30 PT 13.6 Seconds (9.8-13.1) H 06/21/18 05:20 INR 1.2 06/21/18 05:20 APTT 39.3 Seconds (25.6-37.1) H 06/21/18 05:20 - Head Exam Head Exam: ATRAUMATIC - Eye Exam Eye Exam: Normal appearance - ENT Exam ENT Exam: Mucous Membranes Dry - Respiratory Exam Respiratory Exam: NORMAL BREATHING PATTERN - Cardiovascular Exam Cardiovascular Exam: +S1, +S2 - GI/Abdominal Exam GI & Abdominal Exam: Normal Bowel Sounds Assessment and Plan (1) Thrombocytosis Assessment & Plan: normal platelet count last week - likely reactive thrombocytosis from acute illness/infection agree with baby aspirin and DVT prophylaxis; of note reactive thrombocytosis typically does not lead to clotting will rule out iron deficiency as another cause for reactive thrombocytosis should the platelet count not improve with improvement in her acute issues, will perform myeloproliferative disorder evaluation Status: Acute (2) Anemia Assessment & Plan: likely chronic disease f/u retic, b12, folate, ferritin sent Status: Acute
[2018-06-23] MEDS: Meropenem 1 GM in Sodium Chloride 0.9% 100 ML IVPB SCH ×3 (00:26→17:50)
[2018-06-23] MEDS: metroNIDAZOLE 500mg/100ml NS 100 ML IVPB SCH ×3 (03:38→22:01)
[2018-06-23 06:28] LABS: BASO % 0.2 % (0.0-2.0); EOS # 0.2 K/uL (0.0-0.7); EOS % 3.1 % (0.0-4.0); HEMOGLOBIN 7.5 g/dL (12.0-16.0); LYMPH # 1.5 K/uL (1.0-4.3); LYMPH % 27.7 % (20.0-40.0); MEAN CELL VOLUME 107.7 fl (81.0-99.0); MEAN CORPUSCULAR HEMOGLOBIN 29.7 pg (27.0-31.0); MEAN CORPUSCULAR HGB CONC 27.6 g/dL (33.0-37.0); MEAN PLATELET VOLUME 6.7 fl (7.2-11.7); MONO # 0.6 K/uL (0.0-0.8); MONO % 11.8 % (0.0-10.0); NEUT # 3.1 K/uL (1.8-7.0); NEUT % 57.2 % (50.0-75.0); RBC 2.52 Mil/uL (3.80-5.20); RED CELL DISTRIBUTION WIDTH 16.6 % (11.5-14.5); WHITE BLOOD COUNT 5.5 K/uL (4.8-10.8)
--- NOTE | 2018-06-23 08:02 | CP.PCM.PN ---
Subjective - Date & Time of Evaluation Date of Evaluation: 06/23/18 Time of Evaluation: 07:59 - Subjective Subjective: Surgery: Dr. Fowler Pt seen and examined. No acute overnight events. Pt states she feels a lot better, she is tolerating sips of clears and denies any episodes of nausea or vomiting. Continues to have liquid stool in ostomy bag. Ambulating with physical therapy. Objective - Vital Signs/Intake and Output Vital Signs (last 24 hours): Temp Pulse Resp BP Pulse Ox 98.3 F 76 19 132/71 98 06/23/18 00:05 06/23/18 00:05 06/23/18 00:05 06/23/18 00:05 06/23/18 00:05 Intake and Output: 06/23/18 06/23/18 06:59 18:59 Output Total 1 101 Balance -1 -101 - Medications Medications: Current Medications Aspirin (Aspirin Chewable) 81 mg PO DAILY [facility] Last Admin: 06/22/18 09:25 Dose: 81 mg Enoxaparin Sodium (Lovenox) 40 mg SC DAILY [facility]; Protocol Last Admin: 06/22/18 13:25 Dose: 40 mg Fat Emulsion Intravenous (Intralipid 20%) 250 ml IV DAILY [facility] Last Admin: 06/22/18 10:56 Dose: 250 ml Ampicillin Sodium/Sulbactam (Sodium 3 gm/ Sodium Chloride) 100 mls @ 100 mls/hr IVPB Q8@0200,1000,1800 [facility]; Protocol Last Admin: 06/23/18 01:51 Dose: 100 mls/hr Meropenem 1 gm/ Sodium (Chloride) 100 mls @ 100 mls/hr IVPB Q8@0000,0800,1600 [facility]; Protocol Last Admin: 06/23/18 00:26 Dose: 100 mls/hr Metronidazole (Flagyl 500mg/100ml Ns) 100 mls @ 100 mls/hr IVPB Q8@040 0,1200,2000 [facility]; Protocol Last Admin: 06/23/18 03:38 Dose: 100 mls/hr Amino Acids/Electrolytes/Dextrose (Clinimix 5/20 % "E" (1000 Ml)) 1,000 mls @ 83 mls/hr IV .Q12H3M [facility] Last Admin: 06/23/18 04:14 Dose: 83 mls/hr Multivitamins/Vitamin C 10 ml/Chromium/Copper/Manganese/Zinc 3 ml/ Amino Acids/ Electrolytes/Dextrose 1,013 mls @ 83 mls/hr IV ONCE ONE Stop: 06/23/18 13:12 Last Admin: 06/23/18 02:07 Dose: Not Given Amino Acids/Electrolytes/Dextrose (Clinimix 5/20 % "E" (1000 Ml)) 1,000 mls @ 83 mls/hr IV .Q12H3M [facility] Ketorolac Tromethamine (Toradol) 30 mg IVP Q6 PRN PRN Reason: Pain, moderate (4-7) Last Admin: 06/23/18 01:50 Dose: 30 mg Metoclopramide HCl (Reglan) 10 mg IVP 0100,0700,1300,1900 [facility] Last Admin: 06/23/18 06:54 Dose: 10 mg Ondansetron HCl (Zofran Inj) 4 mg IVP Q6H PRN PRN Reason: Nausea/Vomiting Last Admin: 06/16/18 08:29 Dose: 4 mg - Labs Labs: 06/23/18 05:45 PT 13.6 Seconds (9.8-13.1) H 06/21/18 05:20 INR 1.2 06/21/18 05:20 APTT 39.3 Seconds (25.6-37.1) H 06/21/18 05:20 - Constitutional Appears: Well, No Acute Distress - Head Exam Head Exam: ATRAUMATIC, NORMOCEPHALIC - ENT Exam ENT Exam: Mucous Membranes Moist - Respiratory Exam Respiratory Exam: NORMAL BREATHING PATTERN - Cardiovascular Exam Cardiovascular Exam: RRR - GI/Abdominal Exam GI & Abdominal Exam: Soft. absent: Distended, Guarding, Tenderness, Rebound Additional comments: ileostomy in place with brown liquid stool in bag, priyanka with minimal seropurulent output - Neurological Exam Neurological Exam: Alert, Awake, Oriented x3 - Skin Skin Exam: Dry, Warm Assessment and Plan - Assessment and Plan (Free Text) Assessment: 53F s/p Ex-Lap with diverting loop ileostomy for complication of cecal perforation post culdoplasty; POD#16 Plan: - Cont CLD; will advance slowly as tolerated - monitor ostomy output - cont IV ABX per ID recs - encourage ambulation with PT - d/w Dr. Malcolm Jamison
[2018-06-23 08:55] LABS: ALB/GLOB RATIO 0.7 (1.0-2.1); ALBUMIN 3.3 g/dL (3.5-5.0); ALT/SGPT 24 U/L (9-52); AST/SGOT 46 U/L (14-36); BLOOD UREA NITROGEN 13 mg/dl (7-17); CALCIUM 8.7 mg/dL (8.4-10.2); GFR NON-AFRICAN AMERICAN > 60
[2018-06-23 13:39] LABS: FOLATE 5.6 ng/mL
[2018-06-23] MEDS: Enoxaparin 40 mg Syringe SC SCH (14:53)
[2018-06-23 16:21] LABS: HEMOGLOBIN 9.5 g/dL (12.0-16.0); MEAN CELL VOLUME 90.9 fl (81.0-99.0); MEAN CORPUSCULAR HEMOGLOBIN 29.4 pg (27.0-31.0); MEAN CORPUSCULAR HGB CONC 32.4 g/dL (33.0-37.0); RBC 3.21 Mil/uL (3.80-5.20); RED CELL DISTRIBUTION WIDTH 14.8 % (11.5-14.5); WHITE BLOOD COUNT 6.8 K/uL (4.8-10.8)
[2018-06-24] MEDS: Meropenem 1 GM in Sodium Chloride 0.9% 100 ML IVPB SCH ×4 (00:36→23:31)
[2018-06-24] MEDS: metroNIDAZOLE 500mg/100ml NS 100 ML IVPB SCH ×3 (03:40→16:51)
[2018-06-24 06:21] LABS: BASO # 0.1 K/uL (0.0-0.2); BASO % 1.1 % (0.0-2.0); EOS # 0.2 K/uL (0.0-0.7); EOS % 4.3 % (0.0-4.0); HEMOGLOBIN 9.3 g/dL (12.0-16.0); LYMPH # 1.4 K/uL (1.0-4.3); LYMPH % 26.1 % (20.0-40.0); MEAN CELL VOLUME 91.7 fl (81.0-99.0); MEAN CORPUSCULAR HEMOGLOBIN 30.5 pg (27.0-31.0); MEAN CORPUSCULAR HGB CONC 33.2 g/dL (33.0-37.0); MEAN PLATELET VOLUME 6.4 fl (7.2-11.7); MONO # 0.8 K/uL (0.0-0.8); MONO % 15.1 % (0.0-10.0); NEUT # 2.9 K/uL (1.8-7.0); NEUT % 53.4 % (50.0-75.0); RBC 3.05 Mil/uL (3.80-5.20); RED CELL DISTRIBUTION WIDTH 14.9 % (11.5-14.5); WHITE BLOOD COUNT 5.5 K/uL (4.8-10.8)
[2018-06-24 07:16] LABS: ALB/GLOB RATIO 0.8 (1.0-2.1); ALBUMIN 3.4 g/dL (3.5-5.0); ALT/SGPT 22 U/L (9-52); AST/SGOT 21 U/L (14-36); BLOOD UREA NITROGEN 10 mg/dl (7-17); CALCIUM 8.7 mg/dL (8.4-10.2); GFR NON-AFRICAN AMERICAN > 60
[2018-06-24] MEDS: Enoxaparin 40 mg Syringe SC SCH (09:17)
--- NOTE | 2018-06-24 10:35 | CP.PCM.PN ---
Subjective - Date & Time of Evaluation Date of Evaluation: 06/24/18 Time of Evaluation: 07:00 - Subjective Subjective: SURGERY PROGRESS NOTE FOR DR. GOMEZ Patient seen and examined at bedside. She is OOB to chair. Continues doing PT. She is tolerating CLD. The tube fell out of her ostomy last night around 12:30 but there was 350cc output into the ostomy. Had rectal soft BM. Objective - Vital Signs/Intake and Output Vital Signs (last 24 hours): Temp Pulse Resp BP Pulse Ox 97.8 F 87 19 139/63 99 06/24/18 08:13 06/24/18 08:13 06/24/18 08:13 06/24/18 08:13 06/24/18 08:13 - Medications Medications: Current Medications Aspirin (Aspirin Chewable) 81 mg PO DAILY [facility] Last Admin: 06/24/18 09:17 Dose: 81 mg Enoxaparin Sodium (Lovenox) 40 mg SC DAILY [facility]; Protocol Last Admin: 06/24/18 09:17 Dose: 40 mg Fat Emulsion Intravenous (Intralipid 20%) 250 ml IV DAILY [facility] Last Admin: 06/24/18 09:18 Dose: 250 ml Ampicillin Sodium/Sulbactam (Sodium 3 gm/ Sodium Chloride) 100 mls @ 100 mls/hr IVPB Q8@0200,1000,1800 [facility]; Protocol Last Admin: 06/24/18 09:14 Dose: 100 mls/hr Meropenem 1 gm/ Sodium (Chloride) 100 mls @ 100 mls/hr IVPB Q8@0000,0800,1600 [facility]; Protocol Last Admin: 06/24/18 09:12 Dose: 100 mls/hr Amino Acids/Electrolytes/Dextrose (Clinimix 5/20 % "E" (1000 Ml)) 1,000 mls @ 83 mls/hr IV .Q12H3M [facility] Last Admin: 06/24/18 05:49 Dose: 83 mls/hr Amino Acids/Electrolytes/Dextrose (Clinimix 5/20 % "E" (1000 Ml)) 1,000 mls @ 83 mls/hr IV .Q12H3M [facility] Ibuprofen (Motrin Tab) 600 mg PO Q6 PRN PRN Reason: Pain, moderate (4-7) Last Admin: 06/24/18 05:03 Dose: 600 mg Metoclopramide HCl (Reglan) 10 mg IVP 0100,0700,1300,1900 [facility] Last Admin: 06/24/18 07:11 Dose: Not Given Ondansetron HCl (Zofran Inj) 4 mg IVP Q6H PRN PRN Reason: Nausea/Vomiting Last Admin: 06/16/18 08:29 Dose: 4 mg - Labs Labs: 06/24/18 05:55 06/24/18 05:55 PT 13.6 Seconds (9.8-13.1) H 06/21/18 05:20 INR 1.2 06/21/18 05:20 APTT 39.3 Seconds (25.6-37.1) H 06/21/18 05:20 - Constitutional Appears: Well, Non-toxic, No Acute Distress - Respiratory Exam Respiratory Exam: NORMAL BREATHING PATTERN. absent: Respiratory Distress - Cardiovascular Exam Cardiovascular Exam: +S1, +S2 - GI/Abdominal Exam GI & Abdominal Exam: Soft. absent: Distended, Firm, Guarding, Tenderness Additional comments: Right priyanka drain with small amount seropurulent drainage (5cc overnight) - Neurological Exam Neurological Exam: Alert, Awake, Oriented x3 - Psychiatric Exam Psychiatric exam: Normal Affect, Normal Mood - Skin Skin Exam: Dry, Normal Color, Warm Assessment and Plan - Assessment and Plan (Free Text) Assessment: 53F s/p Ex-Lap with diverting loop ileostomy for complication of cecal perforation post culdoplasty; POD#17 Plan: - Tolerating CLD, Advanced to full liquids - Will remove Priyanka drain today - Thrombocytosis: as per Dr. Rubio: likely reactive thrombocytosis from acute illness/infection, agree with baby aspirin - Monitor ostomy output - Cont IV ABX per ID recs - Encourage ambulation with PT - Discussed plan with Dr. Malcolm Phillips PGY-4
--- NOTE | 2018-06-24 11:53 | CP.PCM.PN ---
Subjective - Date & Time of Evaluation Date of Evaluation: 06/23/18 Time of Evaluation: 16:00 - Subjective Subjective: No complaints. Objective - Vital Signs/Intake and Output Vital Signs (last 24 hours): Temp Pulse Resp BP Pulse Ox 97.8 F 87 19 139/63 99 06/24/18 08:13 06/24/18 08:13 06/24/18 08:13 06/24/18 08:13 06/24/18 08:13 - Medications Medications: Current Medications Aspirin (Aspirin Chewable) 81 mg PO DAILY [facility] Last Admin: 06/24/18 09:17 Dose: 81 mg Enoxaparin Sodium (Lovenox) 40 mg SC DAILY [facility]; Protocol Last Admin: 06/24/18 09:17 Dose: 40 mg Fat Emulsion Intravenous (Intralipid 20%) 250 ml IV DAILY [facility] Last Admin: 06/24/18 09:18 Dose: 250 ml Ampicillin Sodium/Sulbactam (Sodium 3 gm/ Sodium Chloride) 100 mls @ 100 mls/hr IVPB Q8@0200,1000,1800 [facility]; Protocol Last Admin: 06/24/18 09:14 Dose: 100 mls/hr Meropenem 1 gm/ Sodium (Chloride) 100 mls @ 100 mls/hr IVPB Q8@0000,0800,1600 [facility]; Protocol Last Admin: 06/24/18 09:12 Dose: 100 mls/hr Amino Acids/Electrolytes/Dextrose (Clinimix 5/20 % "E" (1000 Ml)) 1,000 mls @ 83 mls/hr IV .Q12H3M [facility] Last Admin: 06/24/18 05:49 Dose: 83 mls/hr Amino Acids/Electrolytes/Dextrose (Clinimix 5/20 % "E" (1000 Ml)) 1,000 mls @ 83 mls/hr IV .Q12H3M [facility] Metronidazole (Flagyl 500mg/100ml Ns) 100 mls @ 100 mls/hr IVPB Q8 [facility]; Protocol Ibuprofen (Motrin Tab) 600 mg PO Q6 PRN PRN Reason: Pain, moderate (4-7) Last Admin: 06/24/18 05:03 Dose: 600 mg Metoclopramide HCl (Reglan) 10 mg IVP 0100,0700,1300,1900 [facility] Last Admin: 10/05/18 07:11 Dose: Not Given Ondansetron HCl (Zofran Inj) 4 mg IVP Q6H PRN PRN Reason: Nausea/Vomiting Last Admin: 06/16/18 08:29 Dose: 4 mg - Labs Labs: 06/24/18 05:55 06/24/18 05:55 PT 13.6 Seconds (9.8-13.1) H 06/21/18 05:20 INR 1.2 06/21/18 05:20 APTT 39.3 Seconds (25.6-37.1) H 06/21/18 05:20 - Head Exam Head Exam: ATRAUMATIC - Eye Exam Eye Exam: Normal appearance - ENT Exam ENT Exam: Mucous Membranes Dry - Respiratory Exam Respiratory Exam: NORMAL BREATHING PATTERN - Cardiovascular Exam Cardiovascular Exam: +S1, +S2 - GI/Abdominal Exam GI & Abdominal Exam: Normal Bowel Sounds Assessment and Plan (1) Thrombocytosis Assessment & Plan: reactive thrombocytosis; not a clotting risk borderline iron stores; will consider iron supplementation should the platelet count not improve with improvement in her acute issues, will perform myeloproliferative disorder evaluation on aspirin and DVT prophylaxis Status: Acute (2) Anemia Assessment & Plan: chronic disease and element of iron deficiency Status: Acute
--- NOTE | 2018-06-24 11:54 | CP.PCM.PN ---
Subjective - Date & Time of Evaluation Date of Evaluation: 06/24/18 Time of Evaluation: 10:00 - Subjective Subjective: No complaints. Objective - Vital Signs/Intake and Output Vital Signs (last 24 hours): Temp Pulse Resp BP Pulse Ox 97.8 F 87 19 139/63 99 06/24/18 08:13 06/24/18 08:13 06/24/18 08:13 06/24/18 08:13 06/24/18 08:13 - Medications Medications: Current Medications Aspirin (Aspirin Chewable) 81 mg PO DAILY [facility] Last Admin: 06/24/18 09:17 Dose: 81 mg Enoxaparin Sodium (Lovenox) 40 mg SC DAILY [facility]; Protocol Last Admin: 06/24/18 09:17 Dose: 40 mg Fat Emulsion Intravenous (Intralipid 20%) 250 ml IV DAILY [facility] Last Admin: 06/24/18 09:18 Dose: 250 ml Ampicillin Sodium/Sulbactam (Sodium 3 gm/ Sodium Chloride) 100 mls @ 100 mls/hr IVPB Q8@0200,1000,1800 [facility]; Protocol Last Admin: 06/24/18 09:14 Dose: 100 mls/hr Meropenem 1 gm/ Sodium (Chloride) 100 mls @ 100 mls/hr IVPB Q8@0000,0800,1600 [facility]; Protocol Last Admin: 06/24/18 09:12 Dose: 100 mls/hr Amino Acids/Electrolytes/Dextrose (Clinimix 5/20 % "E" (1000 Ml)) 1,000 mls @ 83 mls/hr IV .Q12H3M [facility] Last Admin: 06/24/18 05:49 Dose: 83 mls/hr Amino Acids/Electrolytes/Dextrose (Clinimix 5/20 % "E" (1000 Ml)) 1,000 mls @ 83 mls/hr IV .Q12H3M [facility] Metronidazole (Flagyl 500mg/100ml Ns) 100 mls @ 100 mls/hr IVPB Q8 [facility]; Protocol Ibuprofen (Motrin Tab) 600 mg PO Q6 PRN PRN Reason: Pain, moderate (4-7) Last Admin: 06/24/18 05:03 Dose: 600 mg Metoclopramide HCl (Reglan) 10 mg IVP 0100,0700,1300,1900 [facility] Last Admin: 10/05/18 07:11 Dose: Not Given Ondansetron HCl (Zofran Inj) 4 mg IVP Q6H PRN PRN Reason: Nausea/Vomiting Last Admin: 06/16/18 08:29 Dose: 4 mg - Labs Labs: 06/24/18 05:55 06/24/18 05:55 PT 13.6 Seconds (9.8-13.1) H 06/21/18 05:20 INR 1.2 06/21/18 05:20 APTT 39.3 Seconds (25.6-37.1) H 06/21/18 05:20 - Head Exam Head Exam: ATRAUMATIC - Eye Exam Eye Exam: Normal appearance - ENT Exam ENT Exam: Mucous Membranes Dry - Respiratory Exam Respiratory Exam: NORMAL BREATHING PATTERN - Cardiovascular Exam Cardiovascular Exam: +S1, +S2 - GI/Abdominal Exam GI & Abdominal Exam: Normal Bowel Sounds Assessment and Plan (1) Thrombocytosis Assessment & Plan: reactive thrombocytosis; not a clotting risk borderline iron stores; will consider iron supplementation should the platelet count not improve with improvement in her acute issues, will perform myeloproliferative disorder evaluation on aspirin and DVT prophylaxis Status: Acute (2) Anemia Assessment & Plan: chronic disease and element of iron deficiency Status: Acute
[2018-06-24] MEDS ORDERED: Simethicone 80 mg Chewtab PO PRN (17:21)
[2018-06-25] MEDS: metroNIDAZOLE 500mg/100ml NS 100 ML IVPB SCH ×3 (01:03→16:14)
--- NOTE | 2018-06-25 07:52 | CP.PCM.PN ---
Subjective - Date & Time of Evaluation Date of Evaluation: 06/25/18 Time of Evaluation: 07:51 - Subjective Subjective: General surgrery progress note for Dr. Anahi Freitas, PGY-2 Pt S & E at bedside at 0650 Pt sitting up to chair. Reports ambulation without walker yesterday. Abdominal discomfort from eating lactose resolved. Denies N & V. 1300cc dark brown liquid with particulate stool output via ostomy as per nursing. Objective - Vital Signs/Intake and Output Vital Signs (last 24 hours): Temp Pulse Resp BP Pulse Ox 98.3 F 86 19 124/67 98 06/25/18 01:00 06/25/18 01:00 06/25/18 01:00 06/25/18 01:00 06/25/18 01:00 Intake and Output: 06/25/18 06/25/18 06:59 18:59 Output Total 2200 200 Balance -2200 -200 - Medications Medications: Current Medications Aspirin (Aspirin Chewable) 81 mg PO DAILY [facility] Last Admin: 06/24/18 09:17 Dose: 81 mg Enoxaparin Sodium (Lovenox) 40 mg SC DAILY [facility]; Protocol Last Admin: 06/24/18 09:17 Dose: 40 mg Ampicillin Sodium/Sulbactam (Sodium 3 gm/ Sodium Chloride) 100 mls @ 100 mls/hr IVPB Q8@0200,1000,1800 [facility]; Protocol Last Admin: 06/25/18 02:27 Dose: 100 mls/hr Meropenem 1 gm/ Sodium (Chloride) 100 mls @ 100 mls/hr IVPB Q8@0000,0800,1600 [facility]; Protocol Last Admin: 06/24/18 23:31 Dose: 100 mls/hr Amino Acids/Electrolytes/Dextrose (Clinimix 5/20 % "E" (1000 Ml)) 1,000 mls @ 83 mls/hr IV .Q12H3M [facility] Last Admin: 06/25/18 01:41 Dose: Not Given Metronidazole (Flagyl 500mg/100ml Ns) 100 mls @ 100 mls/hr IVPB Q8 [facility]; Protocol Last Admin: 06/25/18 01:03 Dose: 100 mls/hr Ibuprofen (Motrin Tab) 600 mg PO Q6 PRN PRN Reason: Pain, moderate (4-7) Last Admin: 06/24/18 23:31 Dose: 600 mg Ondansetron HCl (Zofran Inj) 4 mg IVP Q6H PRN PRN Reason: Nausea/Vomiting Last Admin: 06/16/18 08:29 Dose: 4 mg Simethicone (Mylicon Chew Tab) 80 mg PO PCHS PRN PRN Reason: Flatulence Last Admin: 06/24/18 18:59 Dose: 80 mg - Labs Labs: 06/24/18 05:55 06/24/18 05:55 PT 13.6 Seconds (9.8-13.1) H 06/21/18 05:20 INR 1.2 06/21/18 05:20 APTT 39.3 Seconds (25.6-37.1) H 06/21/18 05:20 - Constitutional Appears: Non-toxic, No Acute Distress - Head Exam Head Exam: ATRAUMATIC, NORMAL INSPECTION, NORMOCEPHALIC - Eye Exam Eye Exam: EOMI, Normal appearance - ENT Exam ENT Exam: Mucous Membranes Moist, Normal Exam - Neck Exam Neck Exam: Full ROM, Normal Inspection - Respiratory Exam Respiratory Exam: NORMAL BREATHING PATTERN - Cardiovascular Exam Cardiovascular Exam: REGULAR RHYTHM - GI/Abdominal Exam GI & Abdominal Exam: Soft, Normal Bowel Sounds. absent: Distended, Firm, Guarding, Tenderness Additional comments: ostomy bag in place with light brown liquid output, small amount of air Midline dressing in place- clean/dry/intact w/steri strips - Extremities Exam Extremities Exam: Normal Inspection - Neurological Exam Neurological Exam: Alert, Awake, CN II-XII Intact, Oriented x3 - Psychiatric Exam Psychiatric exam: Normal Affect, Normal Mood - Skin Skin Exam: Dry, Normal Color, Warm Assessment and Plan - Assessment and Plan (Free Text) Assessment: 53F s/p Ex-lap w/diverting loop ileostomy for complication of cecal perforation s/p culdoplasty; POD#17 Plan: Monitor tolerance of lactose free FLD, advance diet as tolerated to soft LACTOSE Free Monitor ostomy output Cont IV Abx OOBTC Ambulate Encourage IS use DW Dr. Malcolm Freitas, PGY-2
--- NOTE | 2018-06-25 08:03 | CP.PCM.PN ---
Subjective - Date & Time of Evaluation Date of Evaluation: 06/25/18 Time of Evaluation: 08:01 - Subjective Subjective: Patient doing well patient reports output from ostomy patient ambulating sitting in chair pain well-controlled Objective - Vital Signs/Intake and Output Vital Signs (last 24 hours): Temp Pulse Resp BP Pulse Ox 98.3 F 86 19 124/67 98 06/25/18 01:00 06/25/18 01:00 06/25/18 01:00 06/25/18 01:00 06/25/18 01:00 Intake and Output: 06/25/18 06/25/18 06:59 18:59 Output Total 2200 200 Balance -2200 -200 - Medications Medications: Current Medications Aspirin (Aspirin Chewable) 81 mg PO DAILY [facility] Last Admin: 06/24/18 09:17 Dose: 81 mg Enoxaparin Sodium (Lovenox) 40 mg SC DAILY [facility]; Protocol Last Admin: 06/24/18 09:17 Dose: 40 mg Ampicillin Sodium/Sulbactam (Sodium 3 gm/ Sodium Chloride) 100 mls @ 100 mls/hr IVPB Q8@0200,1000,1800 [facility]; Protocol Last Admin: 06/25/18 02:27 Dose: 100 mls/hr Meropenem 1 gm/ Sodium (Chloride) 100 mls @ 100 mls/hr IVPB Q8@0000,0800,1600 [facility]; Protocol Last Admin: 06/24/18 23:31 Dose: 100 mls/hr Amino Acids/Electrolytes/Dextrose (Clinimix 5/20 % "E" (1000 Ml)) 1,000 mls @ 83 mls/hr IV .Q12H3M [facility] Last Admin: 06/25/18 01:41 Dose: Not Given Metronidazole (Flagyl 500mg/100ml Ns) 100 mls @ 100 mls/hr IVPB Q8 [facility]; [facility] Last Admin: 06/25/18 01:03 Dose: 100 mls/hr Ibuprofen (Motrin Tab) 600 mg PO Q6 PRN PRN Reason: Pain, moderate (4-7) Last Admin: 06/24/18 23:31 Dose: 600 mg Ondansetron HCl (Zofran Inj) 4 mg IVP Q6H PRN PRN Reason: Nausea/Vomiting Last Admin: 06/16/18 08:29 Dose: 4 mg Simethicone (Mylicon Chew Tab) 80 mg PO HS PRN PRN Reason: Flatulence Last Admin: 06/24/18 18:59 Dose: 80 mg - Labs Labs: 06/24/18 05:55 06/24/18 05:55 PT 13.6 Seconds (9.8-13.1) H 06/21/18 05:20 INR 1.2 06/21/18 05:20 APTT 39.3 Seconds (25.6-37.1) H 06/21/18 05:20 - Constitutional Appears: Well - Head Exam Head Exam: ATRAUMATIC - Respiratory Exam Respiratory Exam: NORMAL BREATHING PATTERN - Cardiovascular Exam Cardiovascular Exam: REGULAR RHYTHM - GI/Abdominal Exam GI & Abdominal Exam: Soft Assessment and Plan - Assessment and Plan (Free Text) Assessment: Patient doing well Patient currently on clears Will advance diet per surgery Patient to follow-up with Dr. Cain 2 weeks upon discharge
[2018-06-25] MEDS: Meropenem 1 GM in Sodium Chloride 0.9% 100 ML IVPB SCH ×2 (08:17→16:14)
[2018-06-25] MEDS: Enoxaparin 40 mg Syringe SC SCH (08:21)
--- NOTE | 2018-06-25 15:07 | CP.PCM.PN ---
Subjective - Date & Time of Evaluation Date of Evaluation: 06/25/18 Time of Evaluation: 15:07 - Subjective Subjective: I D NOTE PLATELETS ARE HOPEFULLY TRENDING DOWN WBC IS WNL NO CHANE YET IN REGIMEN Objective - Vital Signs/Intake and Output Vital Signs (last 24 hours): Temp Pulse Resp BP Pulse Ox 98.3 F 86 19 124/67 98 06/25/18 01:00 06/25/18 01:00 06/25/18 01:00 06/25/18 01:00 06/25/18 01:00 Intake and Output: 06/25/18 06/25/18 06:59 18:59 Output Total 2200 200 Balance -2200 -200 - Medications Medications: Current Medications Aspirin (Aspirin Chewable) 81 mg PO DAILY [facility] Last Admin: 06/25/18 08:17 Dose: 81 mg Ampicillin Sodium/Sulbactam (Sodium 3 gm/ Sodium Chloride) 100 mls @ 100 mls/hr IVPB Q8@0200,1000,1800 [facility]; Protocol Last Admin: 06/25/18 10:54 Dose: 100 mls/hr Meropenem 1 gm/ Sodium (Chloride) 100 mls @ 100 mls/hr IVPB Q8@0000,0800,1600 [facility]; Protocol Last Admin: 06/25/18 08:17 Dose: 100 mls/hr Amino Acids/Electrolytes/Dextrose (Clinimix 5/20 % "E" (1000 Ml)) 1,000 mls @ 83 mls/hr IV .Q12H3M [facility] Last Admin: 06/25/18 13:46 Dose: Not Given Metronidazole (Flagyl 500mg/100ml Ns) 100 mls @ 100 mls/hr IVPB Q8 [facility]; Protocol Last Admin: 06/25/18 08:21 Dose: 100 mls/hr Ibuprofen (Motrin Tab) 600 mg PO Q6 PRN PRN Reason: Pain, moderate (4-7) Last Admin: 06/25/18 08:20 Dose: 600 mg Ondansetron HCl (Zofran Inj) 4 mg IVP Q6H PRN PRN Reason: Nausea/Vomiting Last Admin: 06/16/18 08:29 Dose: 4 mg Simethicone (Mylicon Chew Tab) 80 mg PO PCHS PRN PRN Reason: Flatulence Last Admin: 06/24/18 18:59 Dose: 80 mg - Labs Labs: 06/24/18 05:55 06/24/18 05:55 PT 13.6 Seconds (9.8-13.1) H 06/21/18 05:20 INR 1.2 06/21/18 05:20 APTT 39.3 Seconds (25.6-37.1) H 06/21/18 05:20
[2018-06-26] MEDS: Meropenem 1 GM in Sodium Chloride 0.9% 100 ML IVPB SCH ×4 (00:15→23:40)
[2018-06-26] MEDS: metroNIDAZOLE 500mg/100ml NS 100 ML IVPB SCH ×3 (02:02→17:23)
--- NOTE | 2018-06-26 07:35 | CP.PCM.PN ---
Subjective - Date & Time of Evaluation Date of Evaluation: 06/26/18 Time of Evaluation: 07:33 - Subjective Subjective: General surgrery progress note for Dr. Anahi Freitas, PGY-2 Pt S & E at bedside at 0700 Pt sitting in chair at bedside. Reports tolerating soft food for lunch. Denies N & V, F & C, abdominal pain. Ambulating. 250cc/12 hrs from ostomy, 1000cc/24hrs- light brown liquid with stool particles per nursing. Objective - Vital Signs/Intake and Output Vital Signs (last 24 hours): Temp Pulse Resp BP Pulse Ox 98.1 F 82 20 117/65 98 06/26/18 00:54 06/26/18 00:54 06/26/18 00:54 06/26/18 00:54 06/26/18 00:54 Intake and Output: 06/26/18 06/26/18 06:59 18:59 Intake Total 120 Output Total 530 Balance -410 - Medications Medications: Current Medications Aspirin (Aspirin Chewable) 81 mg PO DAILY [facility] Last Admin: 06/25/18 08:17 Dose: 81 mg Ampicillin Sodium/Sulbactam (Sodium 3 gm/ Sodium Chloride) 100 mls @ 100 mls/hr IVPB Q8@0200,1000,1800 [facility]; Protocol Last Admin: 06/26/18 02:41 Dose: 100 mls/hr Meropenem 1 gm/ Sodium (Chloride) 100 mls @ 100 mls/hr IVPB Q8@0000,0800,1600 [facility]; Protocol Last Admin: 06/26/18 00:15 Dose: 100 mls/hr Amino Acids/Electrolytes/Dextrose (Clinimix 5/20 % "E" (1000 Ml)) 1,000 mls @ 83 mls/hr IV .Q12H3M [facility] Last Admin: 06/26/18 02:02 Dose: Not Given Metronidazole (Flagyl 500mg/100ml Ns) 100 mls @ 100 mls/hr IVPB Q8 [facility]; Protocol Last Admin: 06/26/18 02:02 Dose: 100 mls/hr Ibuprofen (Motrin Tab) 600 mg PO Q6 PRN PRN Reason: Pain, moderate (4-7) Last Admin: 06/26/18 02:39 Dose: 600 mg Ondansetron HCl (Zofran Inj) 4 mg IVP Q6H PRN PRN Reason: Nausea/Vomiting Last Admin: 06/16/18 08:29 Dose: 4 mg Simethicone (Mylicon Chew Tab) 80 mg PO PCHS PRN PRN Reason: Flatulence Last Admin: 06/24/18 18:59 Dose: 80 mg - Labs Labs: 06/24/18 05:55 06/24/18 05:55 PT 13.6 Seconds (9.8-13.1) H 06/21/18 05:20 INR 1.2 06/21/18 05:20 APTT 39.3 Seconds (25.6-37.1) H 06/21/18 05:20 - Constitutional Appears: Non-toxic, No Acute Distress - Head Exam Head Exam: ATRAUMATIC, NORMAL INSPECTION, NORMOCEPHALIC - Eye Exam Eye Exam: EOMI, Normal appearance - ENT Exam ENT Exam: Mucous Membranes Moist, Normal Exam - Neck Exam Neck Exam: Full ROM, Normal Inspection - Respiratory Exam Respiratory Exam: NORMAL BREATHING PATTERN - Cardiovascular Exam Cardiovascular Exam: REGULAR RHYTHM, +S1, +S2 - GI/Abdominal Exam GI & Abdominal Exam: Soft. absent: Distended, Firm, Guarding, Tenderness Additional comments: Ostomy bag with scant light brown liquid output with stool particles Midline dressing in place- clean/dry/intact with steri-strips in place - Extremities Exam Extremities Exam: Normal Inspection - Neurological Exam Neurological Exam: Alert, Awake, CN II-XII Intact, Oriented x3 - Psychiatric Exam Psychiatric exam: Normal Affect, Normal Mood - Skin Skin Exam: Dry, Normal Color, Warm Assessment and Plan - Assessment and Plan (Free Text) Assessment: 53F s/p Ex-lap w/diverting loop ileostomy for complication of cecal perforation s/p culdoplasty; POD#18 Plan: Continue lactose free soft diet Monitor ostomy output OOBTC Ambulate Cleared for d/c home from surgical standpoint Please d/c with ostomy bags for care at home DW Dr. Malcolm Freitas,PGY-2
[2018-06-26] MEDS: Enoxaparin 40 mg Syringe SC SCH (13:13)
--- NOTE | 2018-06-26 22:27 | CP.PCM.PN ---
Subjective - Date & Time of Evaluation Date of Evaluation: 06/25/18 Time of Evaluation: 18:00 - Subjective Subjective: Feeling better Objective - Vital Signs/Intake and Output Vital Signs (last 24 hours): Temp Pulse Resp BP Pulse Ox 98.3 F 86 20 137/78 97 06/26/18 16:01 06/26/18 16:01 06/26/18 16:01 06/26/18 16:01 06/26/18 16:01 Intake and Output: 06/26/18 06/27/18 18:59 06:59 Output Total 200 Balance -200 - Medications Medications: Current Medications Aspirin (Aspirin Chewable) 81 mg PO DAILY [facility] Last Admin: 06/26/18 08:41 Dose: 81 mg Enoxaparin Sodium (Lovenox) 40 mg SC DAILY [facility]; Protocol Last Admin: 06/26/18 13:13 Dose: 40 mg Ampicillin Sodium/Sulbactam (Sodium 3 gm/ Sodium Chloride) 100 mls @ 100 mls/hr IVPB Q8@0200,1000,1800 [facility]; Protocol Last Admin: 06/26/18 18:34 Dose: 100 mls/hr Meropenem 1 gm/ Sodium (Chloride) 100 mls @ 100 mls/hr IVPB Q8@0000,0800,1600 [facility]; Protocol Last Admin: 06/26/18 16:16 Dose: 100 mls/hr Metronidazole (Flagyl 500mg/100ml Ns) 100 mls @ 100 mls/hr IVPB Q8 [facility]; Protocol Last Admin: 06/26/18 17:23 Dose: 100 mls/hr Ibuprofen (Motrin Tab) 600 mg PO Q6 PRN PRN Reason: Pain, moderate (4-7) Last Admin: 06/26/18 10:18 Dose: 600 mg Ondansetron HCl (Zofran Inj) 4 mg IVP Q6H PRN PRN Reason: Nausea/Vomiting Last Admin: 06/16/18 08:29 Dose: 4 mg Simethicone (Mylicon Chew Tab) 80 mg PO PCHS PRN PRN Reason: Flatulence Last Admin: 06/24/18 18:59 Dose: 80 mg - Labs Labs: 06/24/18 05:55 06/24/18 05:55 PT 13.6 Seconds (9.8-13.1) H 06/21/18 05:20 INR 1.2 06/21/18 05:20 APTT 39.3 Seconds (25.6-37.1) H 06/21/18 05:20 - Head Exam Head Exam: ATRAUMATIC - Eye Exam Eye Exam: Normal appearance - ENT Exam ENT Exam: Mucous Membranes Dry - Respiratory Exam Respiratory Exam: NORMAL BREATHING PATTERN - Cardiovascular Exam Cardiovascular Exam: +S1, +S2 - GI/Abdominal Exam GI & Abdominal Exam: Normal Bowel Sounds Assessment and Plan (1) Thrombocytosis Assessment & Plan: reactive thrombocytosis; not a clotting risk borderline iron stores; will consider iron supplementation should the platelet count not improve with improvement in her acute issues, will perform myeloproliferative disorder evaluation on aspirin and DVT prophylaxis Status: Acute (2) Anemia Assessment & Plan: chronic disease and element of iron deficiency Status: Acute
--- NOTE | 2018-06-26 22:28 | CP.PCM.PN ---
Subjective - Date & Time of Evaluation Date of Evaluation: 06/26/18 Time of Evaluation: 19:00 - Subjective Subjective: No complaints. Objective - Vital Signs/Intake and Output Vital Signs (last 24 hours): Temp Pulse Resp BP Pulse Ox 98.3 F 86 20 137/78 97 06/26/18 16:01 06/26/18 16:01 06/26/18 16:01 06/26/18 16:01 06/26/18 16:01 Intake and Output: 06/26/18 06/27/18 18:59 06:59 Output Total 200 Balance -200 - Medications Medications: Current Medications Aspirin (Aspirin Chewable) 81 mg PO DAILY [facility] Last Admin: 06/26/18 08:41 Dose: 81 mg Enoxaparin Sodium (Lovenox) 40 mg SC DAILY [facility]; Protocol Last Admin: 06/26/18 13:13 Dose: 40 mg Ampicillin Sodium/Sulbactam (Sodium 3 gm/ Sodium Chloride) 100 mls @ 100 mls/hr IVPB Q8@0200,1000,1800 [facility]; Protocol Last Admin: 06/26/18 18:34 Dose: 100 mls/hr Meropenem 1 gm/ Sodium (Chloride) 100 mls @ 100 mls/hr IVPB Q8@0000,0800,1600 [facility]; Protocol Last Admin: 06/26/18 16:16 Dose: 100 mls/hr Metronidazole (Flagyl 500mg/100ml Ns) 100 mls @ 100 mls/hr IVPB Q8 PRIYANKA; Protocol Last Admin: 06/26/18 17:23 Dose: 100 mls/hr Ibuprofen (Motrin Tab) 600 mg PO Q6 PRN PRN Reason: Pain, moderate (4-7) Last Admin: 06/26/18 10:18 Dose: 600 mg Ondansetron HCl (Zofran Inj) 4 mg IVP Q6H PRN PRN Reason: Nausea/Vomiting Last Admin: 06/16/18 08:29 Dose: 4 mg Simethicone (Mylicon Chew Tab) 80 mg PO PCHS PRN PRN Reason: Flatulence Last Admin: 06/24/18 18:59 Dose: 80 mg - Labs Labs: 06/24/18 05:55 06/24/18 05:55 PT 13.6 Seconds (9.8-13.1) H 06/21/18 05:20 INR 1.2 06/21/18 05:20 APTT 39.3 Seconds (25.6-37.1) H 06/21/18 05:20 - Head Exam Head Exam: ATRAUMATIC - Eye Exam Eye Exam: Normal appearance - ENT Exam ENT Exam: Mucous Membranes Dry - Respiratory Exam Respiratory Exam: NORMAL BREATHING PATTERN - Cardiovascular Exam Cardiovascular Exam: +S1, +S2 - GI/Abdominal Exam GI & Abdominal Exam: Normal Bowel Sounds Assessment and Plan (1) Thrombocytosis Assessment & Plan: reactive thrombocytosis; not a clotting risk borderline iron stores; will consider iron supplementation should the platelet count not improve with improvement in her acute issues, will perform myeloproliferative disorder evaluation on aspirin and DVT prophylaxis Status: Acute (2) Anemia Assessment & Plan: chronic disease and element of iron deficiency Status: Acute
[2018-06-27] MEDS: metroNIDAZOLE 500mg/100ml NS 100 ML IVPB SCH ×2 (01:51→09:22)
[2018-06-27] MEDS: Enoxaparin 40 mg Syringe SC SCH (09:19)
[2018-06-27] MEDS: Meropenem 1 GM in Sodium Chloride 0.9% 100 ML IVPB SCH (09:23)
--- NOTE | 2018-06-27 09:24 | CP.PCM.PN ---
Subjective - Date & Time of Evaluation Date of Evaluation: 06/27/18 Time of Evaluation: 09:22 - Subjective Subjective: Surgery: Dr. Fowler Pt seen and examined. No acute overnight events. States she feels well and denies any new complaints. Abdominal pain is well controlled and pt is having soft stool output in ostomy. Tolerating a soft diet and denies N/V, F/C. Objective - Vital Signs/Intake and Output Vital Signs (last 24 hours): Temp Pulse Resp BP Pulse Ox 98.3 F 86 20 150/86 100 06/27/18 07:58 06/27/18 07:58 06/27/18 07:58 06/27/18 07:58 06/27/18 07:58 Intake and Output: 06/27/18 06/27/18 06:59 18:59 Intake Total 520 Output Total 200 620 Balance -200 -100 - Medications Medications: Current Medications Aspirin (Aspirin Chewable) 81 mg PO DAILY [facility] Last Admin: 06/26/18 08:41 Dose: 81 mg Enoxaparin Sodium (Lovenox) 40 mg SC DAILY PRIYANKA; Protocol Last Admin: 06/26/18 13:13 Dose: 40 mg Ampicillin Sodium/Sulbactam (Sodium 3 gm/ Sodium Chloride) 100 mls @ 100 mls/hr IVPB Q8@0200,1000,1800 PRIYANKA; Protocol Last Admin: 06/27/18 01:53 Dose: 100 mls/hr Meropenem 1 gm/ Sodium (Chloride) 100 mls @ 100 mls/hr IVPB Q8@0000,0800,1600 PRIYANKA; Protocol Last Admin: 06/26/18 23:40 Dose: 100 mls/hr Metronidazole (Flagyl 500mg/100ml Ns) 100 mls @ 100 mls/hr IVPB Q8 PRIYANKA; Protocol Last Admin: 06/27/18 01:51 Dose: 100 mls/hr Ibuprofen (Motrin Tab) 600 mg PO Q6 PRN PRN Reason: Pain, moderate (4-7) Last Admin: 06/27/18 08:46 Dose: 600 mg Ondansetron HCl (Zofran Inj) 4 mg IVP Q6H PRN PRN Reason: Nausea/Vomiting Last Admin: 06/16/18 08:29 Dose: 4 mg Simethicone (Mylicon Chew Tab) 80 mg PO PCHS PRN PRN Reason: Flatulence Last Admin: 06/24/18 18:59 Dose: 80 mg - Labs Labs: 06/24/18 05:55 06/24/18 05:55 PT 13.6 Seconds (9.8-13.1) H 06/21/18 05:20 INR 1.2 06/21/18 05:20 APTT 39.3 Seconds (25.6-37.1) H 06/21/18 05:20 - Constitutional Appears: Well, No Acute Distress - Head Exam Head Exam: ATRAUMATIC, NORMOCEPHALIC - Eye Exam Eye Exam: Normal appearance - ENT Exam ENT Exam: Mucous Membranes Moist - Respiratory Exam Respiratory Exam: NORMAL BREATHING PATTERN - Cardiovascular Exam Cardiovascular Exam: RRR - GI/Abdominal Exam GI & Abdominal Exam: Soft. absent: Distended, Guarding, Tenderness, Rebound Additional comments: loop ileostomy in place LLQ with soft stool in bag, midline incision with hossein C/D/I - Neurological Exam Neurological Exam: Alert, Awake, Oriented x3 - Skin Skin Exam: Dry, Warm Assessment and Plan - Assessment and Plan (Free Text) Assessment: 53F s/p Ex-lap with diverting loop ileostomy for complication of cecal perforation post culdoplasty; POD#20 Plan: - pt clear for DC from surgical standpoint - cont soft diet for 2-3 weeks while at home - will remove hossein prior to DC - f/u with Dr. Fowler in 2 weeks Y[place]elin
--- NOTE | 2018-06-27 13:08 | CP.PCM.DIS ---
Provider - Provider Date of Admission: 06/06/18 15:30 Attending physician: Sergei Esquivel MD Primary care physician: Hu Amador MD Consults: general surgery for perforated viscus, Hematology for thrombocytosis, ID for infection Time Spent in preparation of Discharge (in minutes): 30 Hospital Course - Lab Results Lab Results: Micro Results 06/13/18 08:30 Blood Blood Culture - Final NO GROWTH AFTER 5 DAYS 06/13/18 08:30 Blood Gram Stain - Final TEST NOT PERFORMED 06/11/18 05:20 Nose MRSA Culture (Admit) - Final MRSA NOT DETECTED 06/12/18 08:40 Urine,Clean Catch Urine Culture - Final No Growth (<1,000 CFU/ML) 06/06/18 11:31 Blood Blood Culture - Final NO GROWTH AFTER 5 DAYS 06/06/18 11:31 Blood Gram Stain - Final TEST NOT PERFORMED 06/07/18 17:00 Other: Please Indicate Gram Stain - Final 06/07/18 17:00 Other: Please Indicate Wound Culture - Final Enterobacter Cloacae Ssp Cloac Enterococcus Faecalis 06/07/18 07:32 Naris MRSA Culture (Admit) - Final MRSA NOT DETECTED 06/06/18 11:31 Blood S.aureus & Coag-Neg Staph PNA FISH - Final TEST NOT PERFORMED 06/06/18 11:31 Blood Blood Culture - Final Micrococcus Species 06/06/18 11:31 Blood Gram Stain - Final 06/06/18 12:00 Urine,Clean Catch Urine Culture - Final No Growth (<1,000 CFU/ML) Most Recent Lab Values WBC 5.5 K/uL (4.8-10.8) 06/24/18 05:55 RBC 3.05 Mil/uL (3.80-5.20) L 06/24/18 05:55 Hgb 9.3 g/dL (12.0-16.0) L 06/24/18 05:55 Hct 27.9 % (34.0-47.0) L 06/24/18 05:55 MCV 91.7 fl (81.0-99.0) 06/24/18 05:55 MCH 30.5 pg (27.0-31.0) 06/24/18 05:55 MCHC 33.2 g/dL (33.0-37.0) 06/24/18 05:55 RDW 14.9 % (11.5-14.5) H 06/24/18 05:55 Plt Count 979 K/uL (130-400) H* 06/24/18 05:55 MPV 6.4 fl (7.2-11.7) L 06/24/18 05:55 Neut % (Auto) 53.4 % (50.0-75.0) 06/24/18 05:55 Lymph % (Auto) 26.1 % (20.0-40.0) 06/24/18 05:55 [place] % (Auto) 15.1 % (0.0-10.0) H 06/24/18 05:55 Eos % (Auto) 4.3 % (0.0-4.0) H 06/24/18 05:55 Baso % (Auto) 1.1 % (0.0-2.0) 06/24/18 05:55 Neut # (Auto) 2.9 K/uL (1.8-7.0) 06/24/18 05:55 Lymph # (Auto) 1.4 K/uL (1.0-4.3) 06/24/18 05:55 [place] # (Auto) 0.8 K/uL (0.0-0.8) 06/24/18 05:55 Eos # (Auto) 0.2 K/uL (0.0-0.7) 06/24/18 05:55 Baso # (Auto) 0.1 K/uL (0.0-0.2) 06/24/18 05:55 Retic Count 2.7 % (0.5-1.5) H 06/23/18 05:45 PT 13.6 Seconds (9.8-13.1) H 06/21/18 05:20 INR 1.2 06/21/18 05:20 APTT 39.3 Seconds (25.6-37.1) H 06/21/18 05:20 pCO2 43 mm/Hg (35-45) 06/08/18 05:23 pO2 204 mm/Hg (80-100) H 06/08/18 05:23 HCO3 25.7 mmol/L (21-28) 06/08/18 05:23 ABG pH 7.39 (7.35-7.45) 06/08/18 05:23 ABG Total CO2 27.3 mmol/L (22-28) 06/08/18 05:23 ABG O2 Saturation 99.4 % (95-98) H 06/08/18 05:23 ABG Base Excess 0.9 mmol/L (-2.0-3.0) 06/08/18 05:23 Al Test Yes 06/08/18 05:23 ABG Potassium 3.9 mmol/L (3.6-5.2) 06/08/18 05:23 A-a O2 Difference 99.0 mm/Hg 06/08/18 05:23 Sodium 137.0 mmol/L (132-148) 06/08/18 05:23 Chloride 108.0 mmol/L (98-107) H 06/08/18 05:23 Glucose 111 mg/dL (65-105) H 06/08/18 05:23 Lactate 0.9 mmol/L (0.7-2.1) 06/08/18 05:23 Vent Mode Simv 06/08/18 05:23 Mechanical Rate 12 06/08/18 05:23 FiO2 50.0 % 06/08/18 05:23 Tidal Volume 500 06/08/18 05:23 PEEP 7 06/08/18 05:23 Pressure Support 15 06/08/18 05:23 Sodium 139 mmol/l (132-148) 06/24/18 05:55 Potassium 4.6 MMOL/L (3.6-5.0) 06/24/18 05:55 Chloride 108 mmol/L (98-107) H 06/24/18 05:55 Carbon Dioxide 29 mmol/L (22-30) 06/24/18 05:55 Anion Gap 7 (10-20) L 06/24/18 05:55 BUN 10 mg/dl (7-17) 06/24/18 05:55 Creatinine 0.5 mg/dl (0.7-1.2) L 06/24/18 05:55 Est GFR ( Amer) > 60 06/24/18 05:55 Est GFR (Non-Af Amer) > 60 06/24/18 05:55 POC Glucose (mg/dL) 90 mg/dL (65-110) 06/25/18 05:39 Random Glucose 106 mg/dL (65-105) H 06/24/18 05:55 Calcium 8.7 mg/dL (8.4-10.2) 06/24/18 05:55 Phosphorus 3.3 mg/dl (2.5-4.5) 06/24/18 05:55 Magnesium 2.1 MG/DL (1.6-2.3) 06/24/18 05:55 Ferritin 65.0 ng/Ml (11.1-264.0) 06/23/18 08:20 Total Bilirubin 0.3 mg/dl (0.2-1.3) 06/24/18 05:55 AST 21 U/L (14-36) 06/24/18 05:55 ALT 22 U/L (9-52) 06/24/18 05:55 Alkaline Phosphatase 93 U/L (38-126) 06/24/18 05:55 Total Protein 7.8 G/DL (6.3-8.2) 06/24/18 05:55 Albumin 3.4 g/dL (3.5-5.0) L 06/24/18 05:55 Globulin 4.5 gm/dL (2.2-3.9) H 06/24/18 05:55 Albumin/Globulin Ratio 0.8 (1.0-2.1) L 06/24/18 05:55 Prealbumin 6.0 mg/dL (17.6-36.0) L 06/07/18 15:59 Triglycerides 45 mg/DL (0-149) 06/16/18 06:20 Vitamin B12 767 pg/mL (239-931) 06/23/18 08:20 Folate 5.6 ng/mL 06/23/18 08:20 Arterial Blood Potassium 3.9 mmol/L (3.6-5.2) 06/08/18 05:23 Urine Color Heidi (YELLOW) 06/12/18 12:30 Urine Clarity Slighty-cloudy (Clear) 06/12/18 12:30 Urine pH 6.0 (5.0-8.0) 06/12/18 12:30 Ur Specific [place] 1.020 (1.003-1.030) 06/12/18 12:30 Urine Protein 30 mg/dL (NEGATIVE) 06/12/18 12:30 Urine Glucose (UA) Neg mg/dL (Normal) 06/12/18 12:30 Urine Ketones Negative mg/dL (NEGATIVE) 06/12/18 12:30 Urine Blood Small (NEGATIVE) 06/12/18 12:30 Urine Nitrate Negative (NEGATIVE) 06/12/18 12:30 Urine Bilirubin Negative (NEGATIVE) 06/12/18 12:30 Urine Urobilinogen 0.2-1.0 mg/dL (0.2-1.0) 06/12/18 12:30 Ur Leukocyte Esterase Trace Joshua/uL (Negative) 06/12/18 12:30 Urine RBC (Auto) 8 /hpf (0-3) H 06/12/18 12:30 Urine Microscopic WBC 6 /hpf (0-5) H 06/12/18 12:30 Ur Squamous Epith Cells 7 /hpf (0-5) H 06/12/18 12:30 Urine Bacteria Rare (<OCC) 06/12/18 12:30 Blood Type A POSITIVE 06/21/18 05:20 Blood Type Confirm A POSITIVE 06/03/18 08:00 Antibody Screen Negative 06/21/18 05:20 Crossmatch See Detail 06/21/18 05:20 BBK History Checked Patient has bt 06/21/18 05:20 - Hospital Course Hospital Course: the patient presented to [facility] for [facility], on POD 1 patient developed a fever patient was observed and during observation patient continued to spike temperatures. ID consultation was obtained general surgery consult the patient was taken to operating room and noted to have perforated viscus which was surgically repaired. the patient developed post op illeus was started on TPN. Pts ostomoy started working her diet was advanced pt now clear for discharge Discharge Exam - Head Exam Head Exam: ATRAUMATIC, NORMOCEPHALIC - Respiratory Exam Respiratory Exam: UNREMARKABLE - Cardiovascular Exam Cardiovascular Exam: REGULAR RHYTHM - GI/Abdominal Exam GI & Abdominal Exam: Normal Bowel Sounds Discharge Plan - Follow Up Plan Patient education suggested?: Yes Instructions: Robot-Assisted Surgery, How to Prevent Surgical Site Infections, Surgical Wound (DC), Docusate, Ibuprofen, Oxycodone and Acetaminophen, Cystoscopy (DC) Additional Instructions: ANY PROBLEMS-FEVER/SEVERE PAIN/BLEEDING/DRAINAGE/PUS OR ANY QUESTIONS CALL DOCTOR OR GO TO EMERGENCY ROOM 911 FOR EMERGENCY [place] DRESSINGS DRY AND INTACT FOLLOW UP WITH DR. ESQUIVEL IN 1 WEEK-CALL TO MAKE APPOINTMENT NO TUB BATHS NO DOUCHING NO TAMPONS NO SEX TILL CLEARED BY DOCTOR NO HEAVY LIFTING OR STRENUOUS EXERCISES MAY SHOWER CHECK FOR FOUL ODOR AND OR EXCESSIVE BLEEDING MEDICATIONS FOR HOME: MOTRIN 800 MG BY MOUTH EVERY 8 HOURS-TAKE WITH FOOD COLACE 100 MG BY MOUTH TWICE A DAY PERCOCET- 1 TABLET BY MOUTH EVERY 4 HOURS NEEDED FOR PAIN Referrals: Hu Amador MD [Primary Care Provider] - Mark Fowler MD [Medical Doctor] -
[2018-06-27 16:13] VITALS: BP 128/74; PULSE 95; RESP 18; TEMP 98.1; O2SAT 94
--- NOTE | 2018-06-28 18:57 | CP.PCM.PN ---
Subjective - Date & Time of Evaluation Date of Evaluation: 06/27/18 Time of Evaluation: 12:00 - Subjective Subjective: No complaints. Objective - Vital Signs/Intake and Output Vital Signs (last 24 hours): Temp Pulse Resp BP Pulse Ox 98.1 F 95 H 18 128/74 94 L 06/27/18 16:12 06/27/18 16:12 06/27/18 16:12 06/27/18 16:12 06/27/18 16:12 - Labs Labs: 06/24/18 05:55 06/24/18 05:55 PT 13.6 Seconds (9.8-13.1) H 06/21/18 05:20 INR 1.2 06/21/18 05:20 APTT 39.3 Seconds (25.6-37.1) H 06/21/18 05:20 - Head Exam Head Exam: ATRAUMATIC - Eye Exam Eye Exam: Normal appearance - ENT Exam ENT Exam: Mucous Membranes Dry - Respiratory Exam Respiratory Exam: NORMAL BREATHING PATTERN - Cardiovascular Exam Cardiovascular Exam: +S1, +S2 - GI/Abdominal Exam GI & Abdominal Exam: Normal Bowel Sounds Assessment and Plan (1) Thrombocytosis Assessment & Plan: reactive thrombocytosis; not a clotting risk borderline iron stores; will consider iron supplementation should the platelet count not improve with improvement in her acute issues, will perform myeloproliferative disorder evaluation on aspirin and DVT prophylaxis Status: Acute (2) Anemia Assessment & Plan: chronic disease and element of iron deficiency Status: Acute
== END 2018-06-27 18:29 | disposition home or self-care (01) | DRG 853 ==
LOC: H.OPSURG 06:07 → H.PEDS 14:23 → OBSVTOIN 06-06 15:30 → H.ICU/CCU 06-07 18:01 → H.MEDSURG1 06-11 14:30
PROVIDERS: ADMIT Obstetrics & Gynecology Gynecology; ATTEND Obstetrics & Gynecology Gynecology
PROC: 0TN74ZZ Release Left Ureter, Percutaneous Endoscopic Approach (ICD-10-PCS; 2018-06-03)
PROC: 0TN64ZZ Release Right Ureter, Percutaneous Endoscopic Approach (ICD-10-PCS; 2018-06-03)
PROC: 0TJB8ZZ Inspection of Bladder, Via Natural or Artificial Opening Endoscopic (ICD-10-PCS; 2018-06-03)
PROC: 0UQF4ZZ Repair Cul-de-sac, Percutaneous Endoscopic Approach (ICD-10-PCS; principal; 2018-06-03 07:45)
PROC: 0DNW4ZZ Release Peritoneum, Percutaneous Endoscopic Approach (ICD-10-PCS; 2018-06-03 07:45)
PROC: 0DQF0ZZ Repair Right Large Intestine, Open Approach (ICD-10-PCS; 2018-06-07)
PROC: 0D1B0Z4 Bypass Ileum to Cutaneous, Open Approach (ICD-10-PCS; 2018-06-07)
PROC: 0W9G0ZZ Drainage of Peritoneal Cavity, Open Approach (ICD-10-PCS; 2018-06-07)
PROC: 5A1945Z Respiratory Ventilation, 24-96 Consecutive Hours (ICD-10-PCS; 2018-06-07)
PROC: 3E03328 Introduction of Oxazolidinones into Peripheral Vein, Percutaneous Approach (ICD-10-PCS; 2018-06-10)
PROC: 02HV33Z Insertion of Infusion Device into Superior Vena Cava, Percutaneous Approach (ICD-10-PCS; 2018-06-13)
PROC: 3E0336Z Introduction of Nutritional Substance into Peripheral Vein, Percutaneous Approach (ICD-10-PCS; 2018-06-17)
DX: A41.59 Other Gram-negative sepsis (principal); K63.1 Perforation of intestine (nontraumatic); K65.1 Peritoneal abscess; K91.89 Other postprocedural complications and disorders of digestive system; K56.7 Ileus, unspecified; E87.2 Acidosis; Z68.41 Body mass index [BMI] 40.0-44.9, adult; N81.2 Incomplete uterovaginal prolapse; R50.82 Postprocedural fever; K66.0 Peritoneal adhesions (postprocedural) (postinfection); D64.9 Anemia, unspecified; E66.01 Morbid (severe) obesity due to excess calories; Y83.8 Other surgical procedures as the cause of abnormal reaction of the patient, or of later complication, without mention of misadventure at the time of the procedure; Z53.31 Laparoscopic surgical procedure converted to open procedure; Z90.710 Acquired absence of both cervix and uterus; Z87.891 Personal history of nicotine dependence

== ENCOUNTER 2018-08-25 06:38 | Inpatient (IN) | payer BC ==
[2018-08-17 09:58] VITALS: BMI 44.1
[2018-08-25] MEDS ORDERED: ePHEDrine 50 mg/ml Inj ONE (10:37)
[2018-08-25] MEDS ORDERED: Succinylcholine 200 mg/10 ml Inj IV ONE (10:37)
[2018-08-25] MEDS ORDERED: Rocuronium 10 mg/ml (5 ml) ONE (10:37)
[2018-08-25] MEDS ORDERED: Propofol 10 mg/ml Inj (20 ML) ONE (10:37)
[2018-08-25] MEDS ORDERED: Midazolam 2 MG/2 ML VIAL ONE (10:37)
[2018-08-25] MEDS ORDERED: Lidocaine 4% (Laryng-O-Jet) Kit MM ONE (10:38)
[2018-08-25] MEDS ORDERED: Bupivacaine HCl 0.5% PF (30 ml) Inj ONE (10:42)
[2018-08-25] MEDS ORDERED: ceFAZolin IV 1 gm in Dextrose 0 GM/0 ML BAG IVPB ONE (10:43)
[2018-08-25] MEDS ORDERED: cefOXitin IV 1 gm in Dextrose 2 GM/100 ML BAG IVPB ONE (10:45)
[2018-08-25] MEDS ORDERED: Lactated Ringer's 1,000 ML IV ONE ×2 (10:50→13:00)
[2018-08-25] MEDS ORDERED: Dexamethasone 4 mg/1 ml ONE (11:30)
[2018-08-25] MEDS ORDERED: Morphine 1 mg/ml preservative-free Inj(Duramorph) ONE (11:41)
[2018-08-25] MEDS ORDERED: Bupivacaine 0.5% 50 ML IJ ONE (11:49)
[2018-08-25] MEDS ORDERED: Neostigmine 1:1000 (1 mg/ml) Inj ONE (11:50)
[2018-08-25] MEDS ORDERED: DiphenhydrAMINE 50 mg/ml Inj IVP PRN (12:29)
--- NOTE | 2018-08-25 12:29 | CP.PCM.HP ---
History of Present Illness - History of Present Illness History of Present Illness: HISTORY AND PHYSICAL FOR DR. GOMEZ 53F is now s/p ileostomy POD#0 and is being admitted to the hospital for further observation. Patient had ileostomy placed in 05/2018 after being diagnosed with perforated bowel in the cecum which was repaired primarily. Days prior patient had a robotic OBGYN case. She denies any pain pre-op. Ostomy has been functioning. PMH- Arthritis PSH: toe amp, c-sec, breast biopsy, robotic hysterectomy, ex-lap ileostomy for perf cecum Present on Admission - Present on Admission Any Indicators Present on Admission: Yes Past Patient History - Past Medical History & Family History Past Medical History?: Yes - Past Social History Smoking Status: Former Smoker - CARDIAC Hx Cardiac Disorders: No - PULMONARY Hx Respiratory Disorders: No - NEUROLOGICAL Hx Neurological Disorder: No - HEENT Hx HEENT Problems: No - RENAL Hx Chronic Kidney Disease: No - ENDOCRINE/METABOLIC Hx Endocrine Disorders: No - HEMATOLOGICAL/ONCOLOGICAL Hx Blood Disorders: No - INTEGUMENTARY Hx Dermatological Problems: No - MUSCULOSKELETAL/RHEUMATOLOGICAL Hx Musculoskeletal Disorders: Yes Hx Arthritis: Yes (knees,legs) Hx Rheumatoid Arthritis: Yes - GASTROINTESTINAL Hx Gastrointestinal Disorders: No - GENITOURINARY/GYNECOLOGICAL Hx Genitourinary Disorders: No - PSYCHIATRIC Hx Emotional Abuse: No Hx Physical Abuse: No - SURGICAL HISTORY Hx Surgeries: Yes Hx Breast Biopsy: Yes (right breast) Hx Section: Yes (x1) Hx Dilation and Curettage: Yes Hx Hysterectomy: Yes Other/Comment: 2nd toe both feet too long bone cut colostomy - ANESTHESIA Hx Anesthesia: Yes Hx Anesthesia Reactions: No Hx Malignant Hyperthermia: No Has any member of the family had a problem w/ anesthesia?: No Meds Allergies/Adverse Reactions: Allergies Allergy/AdvReac Type Severity Reaction Status Date / Time No Known Allergies Allergy Verified 08/25/18 07:59 Physical Exam - Constitutional Appears: Non-toxic, No Acute Distress - Respiratory Exam Respiratory Exam: Clear to Auscultation Bilateral, NORMAL BREATHING PATTERN - Cardiovascular Exam Cardiovascular Exam: REGULAR RHYTHM, +S1, +S2 - GI/Abdominal Exam GI & Abdominal Exam: Soft, Tenderness. absent: Distended, Firm, Guarding, Rebound, Rigid Additional comments: s/p ileostomy reversal old site of ileostomy has [address] - Extremities Exam Extremities exam: Negative for: pedal edema, tenderness - Skin Skin Exam: Dry, Intact, Normal Color, Warm Results - Vital Signs Recent Vital Signs: Last Vital Signs Temp 97.7 F 08/25/18 07:47 Pulse 70 08/25/18 07:52 Resp 18 08/25/18 07:47 BP 139/74 08/25/18 07:47 Pulse Ox 99 08/25/18 07:47 - Labs Labs: Laboratory Results - last 24 hr 08/25/18 08:37 Blood Type A POSITIVE Antibody Screen Negative BBK History Checked Patient has bt Assessment & Plan - Assessment and Plan (Free Text) Assessment: 53F s/p ileostomy reversal Plan: CLD Pain control Anti-emetics Stool softeners Monitor for bowel function Discussed with Dr. Malcolm Ybarra, PGY3
[2018-08-25] MEDS ORDERED: Sodium Chloride 0.9% 1,000 ML IV SCH (12:30)
--- NOTE | 2018-08-25 12:36 | PCM.SURG1 ---
Surgeon's Initial Post Op Note - Surgeon's Notes Surgeon: MD Malcolm Mis Manager: Tate PGY3 Pre-Operative Diagnosis: ileostomy status Operative Findings: Healthy ileostomy Post-Operative Diagnosis: Ileostomy status Operation Performed: Reversal of ileostomy Specimen/Specimens Removed: Stoma of ileum Estimated Blood Loss: EBL {In ML}: 35 Date of Surgery/Procedure: 08/25/18 Time of Surgery/Procedure: 11:35
[2018-08-25] MEDS: Lactated Ringer's 1,000 ML IV SCH ×2 (20:49→21:21)
[2018-08-26] MEDS: Lactated Ringer's 1,000 ML IV SCH ×2 (05:03→12:17)
[2018-08-26 06:49] LABS: BASO % 0.4 % (0.0-2.0); EOS % 0.2 % (0.0-4.0); HEMOGLOBIN 9.9 g/dL (12.0-16.0); LYMPH # 1.5 K/uL (1.0-4.3); LYMPH % 18.3 % (20.0-40.0); MEAN CELL VOLUME 87.8 fl (81.0-99.0); MEAN CORPUSCULAR HEMOGLOBIN 28.5 pg (27.0-31.0); MEAN CORPUSCULAR HGB CONC 32.4 g/dL (33.0-37.0); MEAN PLATELET VOLUME 6.4 fl (7.2-11.7); MONO # 0.8 K/uL (0.0-0.8); MONO % 9.6 % (0.0-10.0); NEUT # 5.8 K/uL (1.8-7.0); NEUT % 71.5 % (50.0-75.0); RBC 3.47 Mil/uL (3.80-5.20); RED CELL DISTRIBUTION WIDTH 14.4 % (11.5-14.5); WHITE BLOOD COUNT 8.1 K/uL (4.8-10.8)
[2018-08-26 06:58] LABS: BLOOD UREA NITROGEN 6 mg/dl (7-17); CALCIUM 8.8 mg/dL (8.4-10.2); GFR NON-AFRICAN AMERICAN > 60
--- NOTE | 2018-08-26 07:48 | CP.PCM.PN ---
Subjective - Date & Time of Evaluation Date of Evaluation: 08/26/18 Time of Evaluation: 07:46 - Subjective Subjective: General Surgery Progress Note for Dr. Fowler 53F seen and evaluated at bedside this morning. No acute events overnight. No complaints this morning. Patient tolerating clears. No passing of flatus or BM yet. Pain is well controlled. Patient is voiding. Denies f/c, n/v/d, SOB, CP, or urinary symptoms. Objective - Vital Signs/Intake and Output Vital Signs (last 24 hours): Temp Pulse Resp BP Pulse Ox 97.6 F 62 18 101/61 99 08/26/18 01:50 08/26/18 01:50 08/26/18 01:50 08/26/18 01:50 08/26/18 01:50 - Medications Medications: Current Medications Docusate Sodium (Colace) 100 mg PO BID PRIYANKA Enoxaparin Sodium (Lovenox) 40 mg SC DAILY PRIYANKA; Protocol Lactated Ringer's (Lactated Ringer's) 1,000 mls @ 125 mls/hr IV .Q8H PRIYANKA Last Admin: 08/26/18 05:03 Dose: 125 mls/hr Sodium Chloride (Sodium Chloride 0.9%) 1,000 mls @ 100 mls/hr IV .Q10H PRIYANKA Ketorolac Tromethamine (Toradol) 30 mg IVP Q6 PRN PRN Reason: Other Last Admin: 08/26/18 05:03 Dose: 30 mg Ondansetron HCl (Zofran Inj) 4 mg IVP Q6 PRN PRN Reason: Nausea/Vomiting - Labs Labs: 08/26/18 06:35 08/26/18 06:35 - Constitutional Appears: Well, Non-toxic, No Acute Distress - Head Exam Head Exam: ATRAUMATIC, NORMAL INSPECTION, NORMOCEPHALIC - Eye Exam Eye Exam: EOMI - ENT Exam ENT Exam: Mucous Membranes Moist - Respiratory Exam Respiratory Exam: NORMAL BREATHING PATTERN. absent: Respiratory Distress - GI/Abdominal Exam GI & Abdominal Exam: Soft, Tenderness, Normal Bowel Sounds Additional comments: LLQ dressing c/d/i - Neurological Exam Neurological Exam: Alert, Awake - Psychiatric Exam Psychiatric exam: Normal Affect, Normal Mood Assessment and Plan - Assessment and Plan (Free Text) Assessment: 53F s/p ileostomy reversal POD1 Plan: Continue CLD - will advance once patient passes flatus/has BM Analgesics and antiemetics Stool softeners Monitor bowel function Further recommendations per Dr. Malcolm Chamberlain PGY1
[2018-08-26] MEDS ORDERED: Chlorhexidine Gluconate 1 APPL/PKT TP ONE (14:32)
[2018-08-26] MEDS: Enoxaparin 40 mg Syringe SC SCH (14:33)
--- NOTE | 2018-08-26 17:01 | PCM.FALL ---
Post Fall Progress Note - Post Fall Fall Date: 08/26/18 Fall Time: 16:56 Description of Fall: Patient was ambulating from bathroom, felt lightheaded and then found herself on the ground. She in unsure whether she hit her head. Nurse was immediately called and assisted patient back to bed. Patient was AAOx3 when found however reports a brief moment of unconsciousness during fall. She denies having pain in her head, neck, or extremities. She does complain of the "shakes". VSS: BP 108/56 HR 76 O2 96% on RA T 97.3 repeat VS post 5 mins: BP138/75 HR 78 O2 100% t 97.3 CB EXAM: AAOx3, remembers event HR: RRR Lungs: no respiratory distress abd: soft mild TTP in the post surgical site Extremities: moves all, no neurological deficits, no pain or visible injuries - Post Fall Exam Vital Sign: Temp Pulse Resp BP Pulse Ox 98.8 F 86 20 117/72 99 08/26/18 13:35 08/26/18 13:35 08/26/18 13:35 08/26/18 13:35 08/26/18 13:35 Skull Exam: Negative for: Scalp wound, Scalp depression, Ridge in skull Eye Exam: Positive for: Pupils equal, Pupils reactive Skin Exam: Negative for: Lacerations, Bruising Mouth Exam: Negative for: Tongue bitten, Teeth dislodge Neck Exam: Negative for: Tenderness, Tingling, Weakness Spinal Exam: Negative for: Tenderness, Tingling, Weakness Chest Exam: Negative for: Difficulty breathing, Tenderness in collar bones, Tenderness in ribs Abdomen Exam: Positive for: Tenderness (post surgical site) Arm Exam: Negative for: Deformity, Alteration in range of movement Leg Exam: Negative for: Deformity, Alteration in range of movement Impression/Plan: Syncopal event obtain stat EKG and Trop CBC, BMP, electrolytes, and TSH CT head stat Neurology consult d/w Dr. Fowler
--- NOTE | 2018-08-26 18:00 | CT ---
Date of service: 08/26/2018 PROCEDURE: CT HEAD WITHOUT CONTRAST. HISTORY: syncopal episode COMPARISON: None available. TECHNIQUE: Axial computed tomography images were obtained through the head/brain without intravenous contrast. Radiation dose: Total exam DLP = 792.69 mGy-cm. This CT exam was performed using one or more of the following dose reduction techniques: Automated exposure control, adjustment of the mA and/or kV according to patient size, and/or use of iterative reconstruction technique. FINDINGS: HEMORRHAGE: No acute parenchymal, subarachnoid or extra-axial hemorrhage. BRAIN: No evidence of large acute infarct. No obvious parenchymal nor extra-axial mass or collection seen on this noncontrast exam. Ventricular and sulcal size are within range of normal this patient's stated age VENTRICLES: No obstructive hydrocephalus. CALVARIUM: There are no acute calvarial fractures.. PARANASAL SINUSES: Unremarkable as visualized. No significant inflammatory changes. MASTOID AIR CELLS: Unremarkable as visualized. No inflammatory changes. OTHER FINDINGS: None. IMPRESSION: No acute intracranial hemorrhage. .
[2018-08-26 18:31] LABS: HEMOGLOBIN 10.2 g/dL (12.0-16.0); MEAN CELL VOLUME 88.7 fl (81.0-99.0); MEAN CORPUSCULAR HEMOGLOBIN 28.5 pg (27.0-31.0); MEAN CORPUSCULAR HGB CONC 32.1 g/dL (33.0-37.0); RBC 3.59 Mil/uL (3.80-5.20); RED CELL DISTRIBUTION WIDTH 14.2 % (11.5-14.5); WHITE BLOOD COUNT 7.6 K/uL (4.8-10.8)
[2018-08-26] MEDS: Potassium Ch 20mEq in D5-1/2NS 1,000 ML IV SCH (18:44)
[2018-08-26 18:46] LABS: BLOOD UREA NITROGEN 7 mg/dl (7-17); GFR NON-AFRICAN AMERICAN > 60
[2018-08-27] MEDS: Potassium Ch 20mEq in D5-1/2NS 1,000 ML IV SCH ×2 (05:27→15:58)
--- NOTE | 2018-08-27 07:13 | CP.PCM.PN ---
Subjective - Date & Time of Evaluation Date of Evaluation: 08/27/18 Time of Evaluation: 07:09 - Subjective Subjective: SURGERY NOTE FOR DR. GOMEZ 53F seen and examined at bedside. Patient is awake and alert, patient states abdominal tenderness is controlled, denies nausea or vomiting, also denies flatus however. She denies any further loss of consciousness and has mild pain on head at site of fall. She is tolerating liquid diet. Objective - Vital Signs/Intake and Output Vital Signs (last 24 hours): Temp Pulse Resp BP Pulse Ox 99.1 F 85 20 114/54 L 98 08/27/18 00:46 08/27/18 00:46 08/27/18 00:46 08/27/18 00:46 08/27/18 00:46 - Medications Medications: Current Medications Acetaminophen (Tylenol 325mg Tab) 650 mg PO Q4 PRN PRN Reason: Pain, Mild (1-3) Docusate Sodium (Colace) 100 mg PO BID PRIYANKA Last Admin: 08/26/18 17:15 Dose: Not Given Enoxaparin Sodium (Lovenox) 40 mg SC DAILY PRIYANKA; Protocol Last Admin: 08/26/18 14:33 Dose: 40 mg Potassium Chloride/Dextrose/Sod Cl (Potassium Chl 20 Meq In D5-1/2ns) 1,000 mls @ 100 mls/hr IV .Q10H PRIYANKA Stop: 08/27/18 18:06 Last Admin: 08/27/18 05:27 Dose: 100 mls/hr Ondansetron HCl (Zofran Inj) 4 mg IVP Q6 PRN PRN Reason: Nausea/Vomiting Last Admin: 08/27/18 03:23 Dose: 4 mg Tramadol HCl (Ultram) 50 mg PO Q6 PRN PRN Reason: Pain, moderate (4-7) Last Admin: 08/27/18 00:46 Dose: 50 mg - Labs Labs: 08/26/18 17:45 08/26/18 17:45 - Constitutional Appears: Non-toxic, No Acute Distress - Respiratory Exam Respiratory Exam: Clear to Ausculation Bilateral, NORMAL BREATHING PATTERN - Cardiovascular Exam Cardiovascular Exam: REGULAR RHYTHM, +S1, +S2 - GI/Abdominal Exam GI & Abdominal Exam: Soft, Tenderness. absent: Distended, Firm, Guarding, Rigid, Rebound Additional comments: previous stoma site CDI. minimal drainage - Extremities Exam Extremities Exam: absent: Pedal Edema, Tenderness - Neurological Exam Neurological Exam: Alert, Awake, Oriented x3 - Psychiatric Exam Psychiatric exam: Normal Affect, Normal Mood - Skin Skin Exam: Dry, Intact, Normal Color, Warm Assessment and Plan - Assessment and Plan (Free Text) Assessment: 53F s/p ileostomy reversal POD#2. Also on telemetry fall for syncopal episode Plan: - Continue liquid diet - Pain control - Await bowel function - Monitor on telemetry - Await Neurology recs Discussed with Dr. Malcolm Ybarra, PGY3
[2018-08-27 08:17] LABS: BASO % 0.4 % (0.0-2.0); EOS % 0.3 % (0.0-4.0); HEMOGLOBIN 10.2 g/dL (12.0-16.0); LYMPH # 1.2 K/uL (1.0-4.3); LYMPH % 19.5 % (20.0-40.0); MEAN CORPUSCULAR HEMOGLOBIN 28.7 pg (27.0-31.0); MEAN CORPUSCULAR HGB CONC 31.9 g/dL (33.0-37.0); MEAN PLATELET VOLUME 7.2 fl (7.2-11.7); MONO # 0.6 K/uL (0.0-0.8); MONO % 10.3 % (0.0-10.0); NEUT # 4.3 K/uL (1.8-7.0); NEUT % 69.5 % (50.0-75.0); RBC 3.57 Mil/uL (3.80-5.20); RED CELL DISTRIBUTION WIDTH 14.6 % (11.5-14.5); WHITE BLOOD COUNT 6.2 K/uL (4.8-10.8)
[2018-08-27 08:54] LABS: BLOOD UREA NITROGEN 4 mg/dl (7-17); CALCIUM 8.8 mg/dL (8.4-10.2); GFR NON-AFRICAN AMERICAN > 60
--- NOTE | 2018-08-28 08:06 | CP.PCM.PN ---
Subjective - Date & Time of Evaluation Date of Evaluation: 08/28/18 Time of Evaluation: 08:04 - Subjective Subjective: General Surgery Progress Note for Dr. Fowler 53F seen and evaluated at bedside this morning. No acute events overnight. Patient has not been able to walk around or get out of bed. No passing flatus or BM. Tolerating clear liquids. Minimal abdominal pain. No headaches or dizziness. No falls. Denies f/c, n/v/d, SOB, CP, or urinary symptoms. Objective - Vital Signs/Intake and Output Vital Signs (last 24 hours): Temp Pulse Resp BP Pulse Ox 98.3 F 95 H 18 132/74 97 08/28/18 04:32 08/28/18 04:32 08/28/18 04:32 08/28/18 04:32 08/28/18 04:32 Intake and Output: 08/28/18 08/28/18 06:59 18:59 Intake Total 1920 Output Total 850 Balance 1070 - Medications Medications: Current Medications Acetaminophen (Tylenol 325mg Tab) 650 mg PO Q4 PRN PRN Reason: Pain, Mild (1-3) Docusate Sodium (Colace) 100 mg PO BID [facility] Last Admin: 08/27/18 16:01 Dose: 100 mg Enoxaparin Sodium (Lovenox) 40 mg SC DAILY [facility]; Protocol Last Admin: 08/26/18 14:33 Dose: 40 mg Ondansetron HCl (Zofran Inj) 4 mg IVP Q6 PRN PRN Reason: Nausea/Vomiting Last Admin: 08/27/18 15:56 Dose: 4 mg Tramadol HCl (Ultram) 50 mg PO Q6 PRN PRN Reason: Pain, moderate (4-7) Last Admin: 08/28/18 04:10 Dose: 50 mg - Labs Labs: 08/27/18 08:00 08/27/18 08:00 - Constitutional Appears: Well, Non-toxic, No Acute Distress - Head Exam Head Exam: ATRAUMATIC, NORMAL INSPECTION, NORMOCEPHALIC - Eye Exam Eye Exam: EOMI - ENT Exam ENT Exam: Mucous Membranes Moist - Respiratory Exam Respiratory Exam: NORMAL BREATHING PATTERN. absent: Respiratory Distress - Cardiovascular Exam Cardiovascular Exam: REGULAR RHYTHM - GI/Abdominal Exam GI & Abdominal Exam: Distended, Soft, Tenderness, Normal Bowel Sounds - Neurological Exam Neurological Exam: Alert, Awake - Psychiatric Exam Psychiatric exam: Normal Affect, Normal Mood - Skin Skin Exam: Dry, Intact, Normal Color, Warm Assessment and Plan - Assessment and Plan (Free Text) Assessment: 53F s/p ileostomy reversal POD3 Plan: Continue CLD until return of bowel function Encourage ambulation/OOBTC and IS use Continue to monitor vitals Analgesics and antiemetics F/u neurology recommendations Further recommendations per Dr. Malcolm Chamberlain PGY1
[2018-08-28] MEDS: Potassium Ch 20mEq in D5-1/2NS 1,000 ML IV SCH ×2 (12:04→22:30)
--- NOTE | 2018-08-28 15:38 | CP.PCM.CON ---
History of Present Illness - History of Present Illness History of Present Illness: Patient seen and examined. NOrmal neurological exam today, no complaints. PLease see dictated consult for further details. plan: 1. FOllow up carotid dopplers. Thank you Dr. Hnederson Past Patient History - Past Medical History & Family History Past Medical History?: Yes - Past Social History Smoking Status: Former Smoker - CARDIAC Hx Cardiac Disorders: No - PULMONARY Hx Respiratory Disorders: No - NEUROLOGICAL Hx Neurological Disorder: No - HEENT Hx HEENT Problems: No - RENAL Hx Chronic Kidney Disease: No - ENDOCRINE/METABOLIC Hx Endocrine Disorders: No - HEMATOLOGICAL/ONCOLOGICAL Hx Blood Disorders: No - INTEGUMENTARY Hx Dermatological Problems: No - MUSCULOSKELETAL/RHEUMATOLOGICAL Hx Musculoskeletal Disorders: Yes Hx Arthritis: Yes (knees,legs) Hx Rheumatoid Arthritis: Yes - GASTROINTESTINAL Hx Gastrointestinal Disorders: No - GENITOURINARY/GYNECOLOGICAL Hx Genitourinary Disorders: No - PSYCHIATRIC Hx Emotional Abuse: No Hx Physical Abuse: No - SURGICAL HISTORY Hx Surgeries: Yes Hx Breast Biopsy: Yes (right breast) Hx Section: Yes (x1) Hx Dilation and Curettage: Yes Hx Hysterectomy: Yes Other/Comment: 2nd toe both feet too long bone cut colostomy - ANESTHESIA Hx Anesthesia: Yes Hx Anesthesia Reactions: No Hx Malignant Hyperthermia: No Has any member of the family had a problem w/ anesthesia?: No Meds Allergies/Adverse Reactions: Allergies Allergy/AdvReac Type Severity Reaction Status Date / Time No Known Allergies Allergy Verified 08/25/18 07:59 - Medications Medications: Current Medications Acetaminophen (Tylenol 325mg Tab) 650 mg PO Q4 PRN PRN Reason: Pain, Mild (1-3) Docusate Sodium (Colace) 100 mg PO BID [facility] Last Admin: 08/28/18 08:19 Dose: 100 mg Enoxaparin Sodium (Lovenox) 40 mg SC DAILY [facility]; Protocol Last Admin: 08/26/18 14:33 Dose: 40 mg Potassium Chloride/Dextrose/Sod Cl (Potassium Chl 20 Meq In D5-1/2ns) 1,000 mls @ 100 mls/hr IV .Q10H [facility] Stop: 08/29/18 10:52 Last Admin: 08/28/18 12:04 Dose: 100 mls/hr Ondansetron HCl (Zofran Inj) 4 mg IVP Q6 PRN PRN Reason: Nausea/Vomiting Last Admin: 08/27/18 15:56 Dose: 4 mg Tramadol HCl (Ultram) 50 mg PO Q6 PRN PRN Reason: Pain, moderate (4-7) Last Admin: 08/28/18 12:03 Dose: 50 mg Results - Vital Signs Recent Vital Signs: Last Vital Signs Temp 98.4 F 08/28/18 12:17 Pulse 115 H 08/28/18 12:17 Resp 20 08/28/18 12:17 BP 162/85 H 08/28/18 12:17 Pulse Ox 97 08/28/18 12:17 - Labs Result Diagrams: 08/27/18 08:00 08/27/18 08:00
--- NOTE | 2018-08-29 03:36 | CON ---
DATE: 08/28/2018 NEUROLOGY CONSULTATION Neurology consult called by Dr. Mark Fowler. HISTORY OF PRESENT ILLNESS: This is a 53-year-old woman who is now status post ileostomy in 05/2018 after she was diagnosed of perforated bowel in the cecum, which was repaired primarily. For that, the patient had a robotic hysterectomy done. The patient was admitted to the hospital on 08/25/2018. She was doing well until 08/26/2018 when she was ambulating to the bathroom, very lightheaded and fell on the ground. There is no recollection of events surrounding this event today when I spoke to her. She does not know she hit her head. There is no loss of consciousness. The patient was awake nearly after the event. Denies diaphoresis, chest pain or palpitations when it happened. At the time of the event, the blood pressure was 108/56, heart rate was 76, oxygen saturation 96% on room air. She was transferred to Telemetry and has been since doing well. On today's exam, the patient said she has never had any such event and is not sure why this has then occurred. There is no history of seizure. There is no history of head trauma. There is no history of stroke in the past. PAST MEDICAL HISTORY AND PAST SURGICAL HISTORY: Arthritis, , , breast biopsy, robotic hysterectomy, ex lap ileostomy for perforated cecum. FAMILY HISTORY: Noncontributory. SOCIAL HISTORY: Noncontributory. ALLERGIES: NO KNOWN DRUG ALLERGIES. PHYSICAL EXAMINATION: NEUROLOGIC EXAM: Completely normal. Her gait is wide based. ABDOMEN: She has very distended abdomen. LABORATORY DATA: Laboratory studies are within normal limits. Chemistry: Chloride 108, BUN 4, glucose 110. Otherwise all other values are normal. CT of the head was done, which is normal in nature. IMPRESSION AND PLAN: This is a 53-year-old woman who has syncopal episode on 08/26/2018. These events have not recurred; however, we would recommend carotid Dopplers. Thank you for this interesting consult. Dontae Henderson MD
--- NOTE | 2018-08-29 07:46 | CP.PCM.PN ---
Subjective - Date & Time of Evaluation Date of Evaluation: 08/29/18 Time of Evaluation: 07:41 - Subjective Subjective: SURGERY NOTE FOR DR. GOMEZ 53F seen and examined at bedside. No acute events overnight. Patient continues to tolerate liquid diet, denies nausea, vomiting, denies flatus, denies bowel movement. Objective - Vital Signs/Intake and Output Vital Signs (last 24 hours): Temp Pulse Resp BP Pulse Ox 99.2 F 102 H 20 131/81 95 08/29/18 05:00 08/29/18 05:00 08/29/18 05:00 08/29/18 05:00 08/29/18 05:00 - Medications Medications: Current Medications Acetaminophen (Tylenol 325mg Tab) 650 mg PO Q4 PRN PRN Reason: Pain, Mild (1-3) Docusate Sodium (Colace) 100 mg PO BID [facility] Last Admin: 08/28/18 16:25 Dose: 100 mg Enoxaparin Sodium (Lovenox) 40 mg SC DAILY [facility]; Protocol Last Admin: 08/26/18 14:33 Dose: 40 mg Potassium Chloride/Dextrose/Sod Cl (Potassium Chl 20 Meq In D5-1/2ns) 1,000 mls @ 100 mls/hr IV .Q10H [facility] Stop: 08/29/18 10:52 Last Admin: 08/28/18 22:30 Dose: 100 mls/hr Ondansetron HCl (Zofran Inj) 4 mg IVP Q6 PRN PRN Reason: Nausea/Vomiting Last Admin: 08/29/18 03:55 Dose: 4 mg Tramadol HCl (Ultram) 50 mg PO Q6 PRN PRN Reason: Pain, moderate (4-7) Last Admin: 08/29/18 03:47 Dose: 50 mg - Labs Labs: 08/27/18 08:00 08/27/18 08:00 - Constitutional Appears: Non-toxic, No Acute Distress - Respiratory Exam Respiratory Exam: Clear to Ausculation Bilateral, NORMAL BREATHING PATTERN - Cardiovascular Exam Cardiovascular Exam: REGULAR RHYTHM, +S1, +S2 - GI/Abdominal Exam GI & Abdominal Exam: Distended, Soft, Tenderness. absent: Firm, Guarding, Rigid, Rebound Additional comments: dressing cdi - Extremities Exam Extremities Exam: absent: Pedal Edema, Tenderness - Neurological Exam Neurological Exam: Alert, Awake Assessment and Plan - Assessment and Plan (Free Text) Assessment: 53F s/p ileostomy reversal POD#4 Plan: - CLD - Pain control - Physical therapy to help her out of bed and ambulate - f/u Carotid doppler Further recs discuss with Dr. Lei Ybarra, PGY3
--- NOTE | 2018-08-29 12:44 | US ---
Date of service: 08/29/2018 PROCEDURE: Duplex ultrasound of the carotid and vertebral arteries. HISTORY: syncopal episode COMPARISON: None available. TECHNIQUE: Grayscale and duplex Doppler evaluation of the cervical carotid and vertebral arteries were performed. The common carotid, carotid bifurcations and cervical ICA and proximal ECA were evaluated. The vertebral arteries were evaluated for gross patency and direction. FINDINGS: RIGHT CAROTID ARTERIES: Common Carotid Artery: Maximal flow velocity of 100.3 cm/s. Carotid Bifurcation: Intimal thickening is present Internal Carotid Artery:Heterogeneous plaque formation. Maximal flow velocity of 72.4 cm/s. External Carotid Artery (proximal branches): Maximal flow velocity of 68.5 cm/s. ICA/CCA Ratio: 0.7 LEFT CAROTID ARTERIES: Common Carotid Artery: Maximal flow velocity of 162.4 cm/s. Carotid Bifurcation: Heterogeneous plaque formation. Internal Carotid Artery:Heterogeneous plaque formation. Maximal flow velocity of 73.6 cm/s. External Carotid Artery (proximal branches): Maximal flow velocity of 72.3 cm/s. ICA/CCA Ratio: 0.0 VERTEBRAL ARTERIES: Right Vertebral Artery: Patent. Antegrade flow. Left Vertebral Artery: Patent. Antegrade flow. OTHER FINDINGS: Atherosclerotic calcification present. IMPRESSION: Right ICA degree of stenosis: Less than 50% Left ICA degree of stenosis: Less than 50% Reference Internal Carotid Artery (ICA) Peak Systolic Velocity (PSV) for above: 1. Less than 50% stenosis less than 125 cm/s peak systolic velocity 2. 50-69% stenosis 125-230cm/s peak systolic velocity 3. Greater than 70% but less than near occlusion greater than 230 cm/s peak systolic velocity
[2018-08-29] MEDS: Potassium Ch 20mEq in D5-1/2NS 1,000 ML IV SCH ×2 (16:38→23:18)
[2018-08-30 05:37] LABS: BASO % 0.6 % (0.0-2.0); EOS # 0.1 K/uL (0.0-0.7); HEMOGLOBIN 9.1 g/dL (12.0-16.0); LYMPH # 1.3 K/uL (1.0-4.3); LYMPH % 32.9 % (20.0-40.0); MEAN CELL VOLUME 87.3 fl (81.0-99.0); MEAN CORPUSCULAR HEMOGLOBIN 28.3 pg (27.0-31.0); MEAN CORPUSCULAR HGB CONC 32.4 g/dL (33.0-37.0); MEAN PLATELET VOLUME 7.4 fl (7.2-11.7); MONO # 0.6 K/uL (0.0-0.8); MONO % 15.6 % (0.0-10.0); NEUT # 1.8 K/uL (1.8-7.0); NEUT % 47.9 % (50.0-75.0); NRBC % 0.1 % (0.0-0.0); RBC 3.22 Mil/uL (3.80-5.20); WHITE BLOOD COUNT 3.9 K/uL (4.8-10.8)
[2018-08-30 05:46] LABS: BLOOD UREA NITROGEN 5 mg/dl (7-17); CALCIUM 8.6 mg/dL (8.4-10.2); GFR NON-AFRICAN AMERICAN > 60
--- NOTE | 2018-08-30 07:59 | CP.PCM.PN ---
Subjective - Date & Time of Evaluation Date of Evaluation: 08/30/18 Time of Evaluation: 07:57 - Subjective Subjective: General Surgery Progress Note for Dr. Fowler 53F seen and evaluated at bedside this morning. Patient had 1 NBNB vomiting episode yesterday. Tolerating clears this morning. Ambulating. Passing flatus, no BM yet. Voiding. Mild abdominal pain. Denies f/c, n/v/d, SOB, CP, headaches, dizziness, or urinary symptoms. Objective - Vital Signs/Intake and Output Vital Signs (last 24 hours): Temp Pulse Resp BP Pulse Ox 98.6 F 91 H 16 118/75 97 08/30/18 05:00 08/30/18 05:00 08/30/18 05:00 08/30/18 05:00 08/30/18 05:00 - Medications Medications: Current Medications Acetaminophen (Tylenol 325mg Tab) 650 mg PO Q4 PRN PRN Reason: Fever >100.4 F Docusate Sodium (Colace) 100 mg PO BID [facility] Last Admin: 08/29/18 16:39 Dose: 100 mg Enoxaparin Sodium (Lovenox) 40 mg SC DAILY [facility]; Protocol Last Admin: 08/26/18 14:33 Dose: 40 mg Potassium Chloride/Dextrose/Sod Cl (Potassium Chl 20 Meq In D5-1/2ns) 1,000 mls @ 100 mls/hr IV .Q10H [facility] Stop: 08/31/18 20:46 Last Admin: 08/29/18 23:18 Dose: 100 mls/hr Ketorolac Tromethamine (Toradol) 30 mg IVP Q6 PRN PRN Reason: Pain, severe (8-10) Last Admin: 08/30/18 03:22 Dose: 30 mg Ondansetron HCl (Zofran Inj) 4 mg IVP Q4 PRN PRN Reason: Nausea/Vomiting Sennosides (Senokot Tab) 8.6 mg PO BID [facility] Last Admin: 08/29/18 16:40 Dose: Not Given Tramadol HCl (Ultram) 50 mg PO Q6 PRN PRN Reason: Pain, moderate (4-7) Last Admin: 08/29/18 10:29 Dose: 50 mg - Labs Labs: 08/30/18 04:20 08/30/18 04:20 - Constitutional Appears: Well, Non-toxic, No Acute Distress - Head Exam Head Exam: ATRAUMATIC, NORMAL INSPECTION, NORMOCEPHALIC - Eye Exam Eye Exam: EOMI - ENT Exam ENT Exam: Mucous Membranes Moist - Respiratory Exam Respiratory Exam: NORMAL BREATHING PATTERN. absent: Respiratory Distress - GI/Abdominal Exam GI & Abdominal Exam: Soft, Normal Bowel Sounds. absent: Distended, Tenderness - Neurological Exam Neurological Exam: Alert, Awake - Psychiatric Exam Psychiatric exam: Normal Affect, Normal Mood - Skin Skin Exam: Dry, Intact, Normal Color, Warm Assessment and Plan - Assessment and Plan (Free Text) Assessment: 53F s/p ileostomy reversal POD5 Plan: Continue to monitor bowel function Will advance with return of bowel function Antiemetics and analgesics PRN Aggressive physical therapy F/u neuro recs, Carotid US negative for occlusive disease Further recs per Dr. Malcolm Chamberlain PGY1
[2018-08-30] MEDS ORDERED: Potassium Chloride 20 mEq ER Tab PO ONE (08:02)
[2018-08-30] MEDS: Enoxaparin 40 mg Syringe SC SCH (09:32)
[2018-08-30] MEDS: Potassium Ch 20mEq in D5-1/2NS 1,000 ML IV SCH (12:04)
--- NOTE | 2018-08-30 12:36 | RAD ---
Date of service: 08/29/2018 HISTORY: n/v post op COMPARISON: 06/19/2018. FINDINGS: BOWEL: There is moderate gaseous dilatation of small bowel loops and colon. There is stool in the distal descending colon and rectum. This BONES: Normal. OTHER FINDINGS: None. IMPRESSION: Moderate gaseous distension of the small bowel loops and colon, nonspecific and could represent developing obstruction in the appropriate clinical setting.
--- NOTE | 2018-08-30 15:14 | PCM.OP ---
Operative Report - Operative Report Date of Surgery/Procedure: 08/25/18 Time of Surgery/Procedure: 09:00 Surgeon: Dr. Mark Fowler Juvenile Corrections Officer: Dr. Selvin Hess Anesthesia/Sedation: general/Dr. Reyes Pre-Operative Diagnosis: Colon perforation/previous ileostomy Post-Operative Diagnosis: same Indication for Surgery: as above Operative Findings: as above Procedure/Operation Description: 1-small bowel resection with anastomosis 2-Close ileostomy History: This 53 year old woman was previously operated emergently for colon perforation from a robotic hysterectomy. Now she is admitted for closure of ileostomy. Description of the Procedure: The patient was brought to the operating room and after induction of endotrcheal anesthesia she was prepped and draped in the usual sterile manner. A 15 blade was used to make a circular incision around the previus ileostomy and this was dissected with blunt and sharp dissection with the aid of electrocautery. The ileostomy was taken down to the level below the fascia of the anterior abdominal wall. The small bowel was delivered into the wound and after adequate dissection it was transected and the small bowel was then sent separately to pathology. The small bowel was then anastomosed with multiple interrupted 3-0 vicryl in the usual fashion, and then delivered into the abdomial cavity. The fascia was close with 0PDS and the skin with interrupted 3-0 nylon. A clean dressing was applied. Hemostasis was adequate and all counts were correct. The patient was then awakened, extubated and brought to the ACU in stable condition. Estimated Blood Loss: 35 cc Complications: none Discharge & Condition: stable
[2018-08-31 05:41] LABS: HEMOGLOBIN 8.8 g/dL (12.0-16.0); MEAN CELL VOLUME 88.2 fl (81.0-99.0); MEAN CORPUSCULAR HEMOGLOBIN 28.4 pg (27.0-31.0); MEAN CORPUSCULAR HGB CONC 32.2 g/dL (33.0-37.0); RBC 3.09 Mil/uL (3.80-5.20); RED CELL DISTRIBUTION WIDTH 14.3 % (11.5-14.5); WHITE BLOOD COUNT 4.2 K/uL (4.8-10.8)
[2018-08-31 05:58] LABS: BLOOD UREA NITROGEN 6 mg/dl (7-17); CALCIUM 8.7 mg/dL (8.4-10.2); GFR NON-AFRICAN AMERICAN > 60
[2018-08-31 08:10] VITALS: RESP 20; TEMP 98.2
[2018-08-31] MEDS: Enoxaparin 40 mg Syringe SC SCH (08:15)
--- NOTE | 2018-08-31 10:50 | CP.PCM.DIS ---
Provider - Provider Date of Admission: 08/25/18 12:30 Attending physician: Mark Fowler MD Primary care physician: Hu Amador MD Consults: 08/26/18 17:14 Neurology Consult Routine Comment: Consulting Provider: Dontae Henderson Consulting Physician: Dontae Henderson Reason for Consult: syncopal event Time Spent in preparation of Discharge (in minutes): 60 Hospital Course - Lab Results Lab Results: Most Recent Lab Values WBC 4.2 K/uL (4.8-10.8) L 08/31/18 04:25 RBC 3.09 Mil/uL (3.80-5.20) L 08/31/18 04:25 Hgb 8.8 g/dL (12.0-16.0) L 08/31/18 04:25 Hct 27.3 % (34.0-47.0) L 08/31/18 04:25 MCV 88.2 fl (81.0-99.0) 08/31/18 04:25 MCH 28.4 pg (27.0-31.0) 08/31/18 04:25 MCHC 32.2 g/dL (33.0-37.0) L 08/31/18 04:25 RDW 14.3 % (11.5-14.5) 08/31/18 04:25 Plt Count 370 K/uL (130-400) 08/31/18 04:25 MPV 7.4 fl (7.2-11.7) 08/30/18 04:20 Neut % (Auto) 47.9 % (50.0-75.0) L 08/30/18 04:20 Lymph % (Auto) 32.9 % (20.0-40.0) 08/30/18 04:20 [place] % (Auto) 15.6 % (0.0-10.0) H 08/30/18 04:20 Eos % (Auto) 3.0 % (0.0-4.0) 08/30/18 04:20 Baso % (Auto) 0.6 % (0.0-2.0) 08/30/18 04:20 Neut # (Auto) 1.8 K/uL (1.8-7.0) 08/30/18 04:20 Lymph # (Auto) 1.3 K/uL (1.0-4.3) 08/30/18 04:20 [place] # (Auto) 0.6 K/uL (0.0-0.8) 08/30/18 04:20 Eos # (Auto) 0.1 K/uL (0.0-0.7) 08/30/18 04:20 Baso # (Auto) 0.0 K/uL (0.0-0.2) 08/30/18 04:20 Sodium 140 mmol/l (132-148) 08/31/18 04:25 Potassium 4.0 MMOL/L (3.6-5.0) 08/31/18 04:25 Chloride 104 mmol/L (98-107) 08/31/18 04:25 Carbon Dioxide 27 mmol/L (22-30) 08/31/18 04:25 Anion Gap 13 (10-20) 08/31/18 04:25 BUN 6 mg/dl (7-17) L 08/31/18 04:25 Creatinine 0.7 mg/dl (0.7-1.2) 08/31/18 04:25 Est GFR ( Amer) > 60 08/31/18 04:25 Est GFR (Non-Af Amer) > 60 08/31/18 04:25 POC Glucose (mg/dL) 98 mg/dL (65-110) 08/26/18 16:44 Random Glucose 100 mg/dL (65-105) 08/31/18 04:25 Calcium 8.7 mg/dL (8.4-10.2) 08/31/18 04:25 Phosphorus 3.8 mg/dl (2.5-4.5) 08/31/18 04:25 Magnesium 1.8 MG/DL (1.6-2.3) 08/31/18 04:25 Troponin I < 0.0120 ng/mL (0.00-0.120) 08/27/18 06:30 TSH 3rd Generation 1.96 mIU/ML (0.46-4.68) 08/26/18 17:45 Blood Type A POSITIVE 08/25/18 08:37 Antibody Screen Negative 08/25/18 08:37 BBK History Checked Patient has bt 08/25/18 08:37 - Hospital Course Hospital Course: 53 year old female, past medical history of a bowel perforation with ileostomy, presents to [facility] for ileostomy reversal with Dr. Fowler. Patient tolerated the procedure without complications. Hospital course was prolonged secondary to a syncopal episode sustained on post-operative day 1. Patient was evaluated by neurology who recommended carotid ultrasound which was negative for occlusive disease. Patient did not sustain injuries during the sycopal episode. She continue to tolerate clear liquid diet. Pain was well controlled. Physical therapy was consulted secondary to deconditioning. On post- operative day 5 she had a bowel movement and began passing gas. Patient tolerated soft diet. Patient will follow up with Dr. Fowler in his office in 2 weeks. Above is a brief summary of patient's hospital course. For a detailed summary please refer to medical records. Discharge Exam - Head Exam Head Exam: ATRAUMATIC, NORMAL INSPECTION, NORMOCEPHALIC - Eye Exam Eye Exam: EOMI - ENT Exam ENT Exam: Mucous Membranes Moist - Respiratory Exam Respiratory Exam: NORMAL BREATHING PATTERN. absent: Respiratory Distress - GI/Abdominal Exam GI & Abdominal Exam: Distended, Soft, Tenderness. absent: Guarding, Rebound - Neurological Exam Neurological exam: Alert, Oriented x3 - Psychiatric Exam Psychiatric exam: Normal Affect, Normal Mood - Skin Skin Exam: Dry, Intact, Normal Color, Warm Additional comments: incisions c/d/i Discharge Plan - Follow Up Plan Condition: GOOD Disposition: HOME/ ROUTINE Patient education suggested?: Yes Instructions: Ostomy Reversal Additional Instructions: Please follow up with your surgeon, Dr. Fowler in 2 weeks. Please resume home medications as prescribed. No heavy lifting greater than 15 pounds for the next 4 weeks. Ok to shower. Please take pain medications as needed. If symptoms worsen, including but not limited to fevers, please return to the ED. Referrals: Hu Amador MD [Primary Care Provider] - Mark Fowler MD [Medical Doctor] -
[2018-08-31 12:24] VITALS: BP 139/89; PULSE 101; O2SAT 98
--- NOTE | 2018-09-06 15:16 | PQF ---
PROVIDER RESPONSE TEXT: anmemia REVIEWER QUERY TEXT: Clarification of Clinical Diagnostic Findings Would you please clarify if there is an associated diagnosis or not to go along with the following la b findings: Please clarify documentation or clinical relevance for the clinical / diagnostic findings or whether those are insignificant or unable to be further specified. The patient's Clinical Indicators include: S/P ileostomy reversal. EBL 35 ml, Rx: IVF 06/24/18: 9.3/ 27.9 Query created by: Carmela Joseph on 08/26/2018 8:48 AM Electronically signed by: Mark Fowler MD 09/06/2018 3:14 PM
--- NOTE | 2018-09-06 15:16 | PQF ---
PROVIDER RESPONSE TEXT: agree REVIEWER QUERY TEXT: Clarification of Clinical Diagnostic Findings 2 physician clarification queries as follows: 1) In agreement with the BMI ( Body Mass Index ) of 44.1 as listed in the EMR? If yes please add the BMI to your progress note. 2) If in agreement with the BMI is there an associated diagnosis to go along with the BMI: i.e. Morbi d obesity, obesity, overweight etc OR Unable to determine OR Other explanation of clinical finding-- Please specify Please clarify documentation or clinical relevance for the clinical / diagnostic findings or whether those are insignificant or unable to be further specified. The patient's Clinical Indicators include: EMR has the patient listed as : 5' 5", weight of 265 pounds with a BMI of 44.1 Query created by: Carmela Joseph on 08/26/2018 8:40 AM Electronically signed by: Mark Fowler MD 09/06/2018 3:14 PM
== END 2018-08-31 12:44 | disposition home or self-care (01) | DRG 331 ==
LOC: H.OPSURG 06:38 → H.MEDSURG1 12:30 → H.TEL 08-26 18:01
PROVIDERS: ADMIT Surgery; ATTEND Surgery
PROC: 0DBB0ZZ Excision of Ileum, Open Approach (ICD-10-PCS; principal; 2018-08-25 10:30)
DX: Z43.2 Encounter for attention to ileostomy (principal); Z87.891 Personal history of nicotine dependence; M06.9 Rheumatoid arthritis, unspecified; R55 Syncope and collapse; M19.90 Unspecified osteoarthritis, unspecified site; D64.9 Anemia, unspecified